=== PATIENT | female | born 1935 | race Caucasian/White ===

== ENCOUNTER → 2017-10-26 | Outpatient (CLI) | payer MEDICARE, OTHER ==
--- NOTE | 2017-10-26 13:06 | RADIOLOGY REPORT (SQ) ---
EXAM DESCRIPTION: CT HEAD WITHOUT COMPLETED DATE/TIME: 10/26/2017 12:55 pm REASON FOR STUDY: NUMBNESS ON RIGHT SIDE (R20.0), STROKE-LIKE SYMPTOMS (R29.90) R20.0 ANESTHESIA OF SKIN R29.90 UNSPECIFIED SYMPTOMS AND SIGNS INVOLVING THE NERVOUS COMPARISON: None. TECHNIQUE: Axial images acquired through the brain without intravenous contrast. Images reviewed wi th bone, brain and subdural windows. Additional sagittal and coronal reconstructions were generated. Images stored on PACS. All CT scanners at this facility use dose modulation, iterative reconstruction, and/or weight based d osing when appropriate to reduce radiation dose to as low as reasonably achievable (ALARA). [facility]: Dose Right [facility]: CareDose [facility]: Dose Right [facility]: Teradose 4D [facility]: [employer] RADIATION DOSE: 48.6 mGy. LIMITATIONS: None. FINDINGS: VENTRICLES: Normal size and contour. CEREBRUM: No masses. No hemorrhage. No midline shift. No evidence for acute infarction. Normal gra y/white matter differentiation. No areas of low density in the white matter. CEREBELLUM: No masses. No hemorrhage. No alteration of density. No evidence for acute infarction. EXTRAAXIAL SPACES: No fluid collections. No masses. ORBITS AND GLOBE: No intra- or extraconal masses. Normal contour of globe without masses. CALVARIUM: No fracture. PARANASAL SINUSES and VISUALIZED SOFT TISSUES: Old right maxillectomy and resection of the hard palat e with facial soft tissue reconstruction prosthesis, and a palate and right maxillary sinus prosthesi s. OTHER: No other significant finding. IMPRESSION: No acute intracranial changes. EVIDENCE OF ACUTE STROKE: No COMMENT: Quality ID # 436: Final reports with documentation of one or more dose reduction techniques (e.g., Automated exposure control, adjustment of the mA and/or kV according to patient size, use of iterative reconstruction technique) TECHNICAL DOCUMENTATION: JOB ID: [id number] [employer]- All Rights Reserved Reading location - IP/workstation name: [email or web address]
== END ==
LOC: RAD 12:31
PROVIDERS: ATTEND Physician Assistant
DX: R20.0 Anesthesia of skin (principal); R29.90 Unspecified symptoms and signs involving the nervous system
CPT/HCPCS: 70450

== ENCOUNTER → 2017-11-01 | Outpatient (CLI) | payer MEDICARE, OTHER ==
--- NOTE | 2017-11-01 14:21 | RADIOLOGY REPORT (SQ) ---
EXAM DESCRIPTION: CAROTID DOPPLER COMPLETED DATE/TIME: 11/01/2017 2:14 pm REASON FOR STUDY: CVA R29.90 UNSPECIFIED SYMPTOMS AND SIGNS INVOLVING THE NERVOUS COMPARISON: None. TECHNIQUE: Grayscale ultrasound, Doppler velocity and spectra, and color Doppler images acquired of the extra-cranial carotid and vertebral arteries. Images stored on PACS. LIMITATIONS: None. FINDINGS: RIGHT CAROTID CCA Velocities: Within normal limits. ICA Velocities Peak systolic 0.64 m/s. End diastolic 0.24 m/s. Proximal ICA/CCA peak systolic ratio 1.3. Spectra normal. No significant plaque. LEFT CAROTID CCA Velocities: Within normal limits. ICA Velocities Peak systolic 0.56 m/s. End diastolic 0.23 m/s. Proximal ICA/CCA peak systolic ratio 1.6. Spectra normal. No significant plaque. VERTEBRAL ARTERIES: Antegrade flow. Normal waveforms. SUBCLAVIAN ARTERIES: No finding. OTHER: No other significant finding. IMPRESSION: NO HEMODYNAMICALLY SIGNIFICANT STENOSIS. COMMENT: Quality ID #195: Velocity criteria are extrapolated from the diameter data as defined by t he Society of Radiologists in Ultrasound Consensus Conference. Radiology 2003: 229; 340-346. TECHNICAL DOCUMENTATION: JOB ID: [id number] [employer]- All Rights Reserved Reading location - IP/workstation name: [email or web address]
== END ==
LOC: SP 13:04
PROVIDERS: ATTEND Physician Assistant
DX: R29.90 Unspecified symptoms and signs involving the nervous system (principal); R20.0 Anesthesia of skin
CPT/HCPCS: 93880

== ENCOUNTER → 2018-07-19 | Outpatient (CLI) | payer MEDICARE, OTHER ==
[2018-07-19 12:33] LABS: ABSOLUTE BASOPHILS # (AUTO) 0.1 10^3/uL (0.0-0.2); ABSOLUTE EOSINOPHILS # (AUTO) 0.1 10^3/uL (0.0-0.6); ABSOLUTE LYMPHOCYTES (AUTO) 0.8 10^3/uL (0.5-4.7); ABSOLUTE MONOCYTES (AUTO) 0.4 10^3/uL (0.1-1.4); ABSOLUTE NEUT (AUTO) 3.2 10^3/uL (1.7-8.2); BASOPHILS % (AUTO) 1.7 % (0-2); EOSINOPHILS % (AUTO) 1.9 % (0-6); HEMOGLOBIN 12.1 g/dL (12.0-15.5); LYMPHOCYTES % (AUTO) 17.1 % (13-45); MEAN CORPUSCULAR HEMOGLOBIN 29.1 pg (27.0-33.4); MEAN CORPUSCULAR HGB CONC 33.5 g/dL (32.0-36.0); MEAN CORPUSCULAR VOLUME 87 fl (80-97); MONOCYTES % (AUTO) 8.3 % (3-13); PLATELET COUNT 329 10^3/uL (150-450); RED BLOOD COUNT 4.15 10^6/uL (3.72-5.28); RED CELL DISTRIBUTION WIDTH 14.1 % (11.5-14.0); TOTAL CELLS COUNTED % (AUTO) 100 %; WHITE BLOOD COUNT 4.5 10^3/uL (4.0-10.5)
[2018-07-19 12:52] LABS: ANION GAP 8 (5-19); BLOOD UREA NITROGEN 16 mg/dL (7-20); CALCIUM 10.5 mg/dL (8.4-10.2); CARBON DIOXIDE 27 mmol/L (22-30); CHLORIDE 108 mmol/L (98-107); GLUCOSE 89 mg/dL (75-110); POTASSIUM 3.7 mmol/L (3.6-5.0); SODIUM 143.1 mmol/L (137-145)
--- NOTE | 2018-07-19 13:00 | RADIOLOGY REPORT (SQ) ---
EXAM DESCRIPTION: CHEST PA/LATERAL COMPLETED DATE/TIME: 07/19/2018 12:06 pm REASON FOR STUDY: PRE-OP COMPARISON: 06/15/2012 EXAM PARAMETERS: NUMBER OF VIEWS: two views TECHNIQUE: Digital Frontal and Lateral radiographic views of the chest acquired. RADIATION DOSE: NA LIMITATIONS: none FINDINGS: LUNGS AND PLEURA: No opacities, masses or pneumothorax. No pleural effusion. MEDIASTINUM AND HILAR STRUCTURES: No masses or contour abnormalities. HEART AND VASCULAR STRUCTURES: Heart normal size. No evidence for failure. BONES: No acute findings. HARDWARE: None in the chest. OTHER: No other significant finding. IMPRESSION: NO SIGNIFICANT RADIOGRAPHIC FINDING IN THE CHEST. TECHNICAL DOCUMENTATION: JOB ID: [id number] [employer]- All Rights Reserved Reading location - IP/workstation name: [email or web address]
[2018-07-19 13:32] LABS: APPEARANCE,URINE SLIGHTLY-CLOUDY; BILIRUBIN,URINE NEGATIVE (NEGATIVE); COLOR,URINE YELLOW; GLUCOSE, URINE NEGATIVE (NEGATIVE); KETONES,URINE NEGATIVE (NEGATIVE); LEUKOCYTE ESTERASE,URINE MODERATE (NEGATIVE); NITRITE,URINE NEGATIVE (NEGATIVE); PROTEIN,URINE NEGATIVE (NEGATIVE); URINE SPECIFIC GRAVITY 1.014; UROBILINOGEN,URINE NEGATIVE mg/dL (<2.0)
--- NOTE | 2018-07-20 15:00 | EKG REPORT ---
SEVERITY:- ABNORMAL ECG - SINUS RHYTHM PROBABLE INFERIOR INFARCT, AGE INDETERMINATE : Confirmed by: George Griggs 20-Jul-2018 14:59:11
== END ==
LOC: OD 11:30
PROVIDERS: ATTEND Orthopaedic Surgery
DX: Z01.818 Encounter for other preprocedural examination (principal)
CPT/HCPCS: 36415; 71046; 80048; 81001; 85025; 93005; 93010

== ENCOUNTER 2019-01-09 14:24 | Emergency (ER) | payer MEDICARE, OTHER ==
[2019-01-09] MEDS ORDERED: ACETAMINOPHEN 325 MG TABLET PO ONE (16:35)
[2019-01-09] MEDS ORDERED: DIPH/PERTUSS(ACELL)/TETANUS VAC/PF 0.5 ML SYR (>=10YO) IM ONE (16:35)
--- NOTE | 2019-01-09 16:36 | ER Document Report ---
ED Medical Screen (RME) - General Chief Complaint: Fall Injury Stated Complaint: FALL/HEAD INJURY Time Seen by Provider: 01/09/19 16:33 Mode of Arrival: Medic Information source: Patient Notes: Patient states that she felt a little dizzy today and [place]. Patient states she fell back hitting her head. Patient denies any loss of consciousness nausea or vomiting. Patient states that she is taking the pain medication and that this may have caused her to become dizzy. Patient with pain to the sacral area from the fall as well as a laceration to the occipital scalp area I have greeted and performed a rapid initial assessment of this patient. A comprehensive ED assessment and evaluation of the patient, analysis of test results and completion of the medical decision making process will be conducted by additional ED providers. TRAVEL OUTSIDE OF THE [place] IN LAST 30 DAYS: No - Related Data Allergies/Adverse Reactions: No Known Allergies Allergy (Verified 01/09/19 14:25) Past Medical History - Social History Frequency of alcohol use: None Drug Abuse: None - Past Medical History Cardiac Medical History: Reports: Hx Heart Attack - pt states very mild attack, Hx Hypercholesterolemia Denies: Hx Atrial Fibrillation, Hx Congestive Heart Failure, Hx Coronary Artery Disease, Hx Hypertension, Hx Peripheral Vascular Disease, Hx Heart Murmur Pulmonary Medical History: Denies: Hx Asthma, Hx Bronchitis, Hx COPD, Hx Sleep Apnea, Hx Tuberculosis Neurological Medical History: Denies: Hx Cerebrovascular Accident, Hx Seizures Endocrine Medical History: Denies: Hx Hyperthyroidism, Hx Hypothyroidism Renal/ Medical History: Denies: Hx Kidney Stones, Hx Ovarian Cysts, Hx Peritoneal Dialysis, Hx Pelvic Inflammatory Disease Malignancy Medical History: Reports: Hx Cervical Cancer, Hx Skin Cancer. Denies: Hx Breast Cancer, Hx Leukemia, Hx Lung Cancer, Hx Ovarian Cancer GI Medical History: Reports: Hx Gastroesophageal Reflux Disease. Denies: Hx Crohn's Disease, Hx Hiatal Hernia, Hx Irritable Bowel, Hx Liver Failure, Hx Pancreatitis, Hx Ulcer Musculoskeltal Medical History: Reports Hx Arthritis - knees, Denies Hx Fibromyalgia, Denies Hx Muscular Dystrophy Psychiatric Medical History: Denies: Hx Bipolar Disorder, Hx Depression, Hx Post Traumatic Stress Disorder Traumatic Medical History: Denies: Hx Fractures Infectious Medical History: Denies: Hx HIV Past Surgical History: Reports: Hx Appendectomy, Hx Bowel Surgery - Apr 2011 Bowel Resection, Hx Cholecystectomy, Hx Hysterectomy. Denies: Hx Section, Hx Colostomy, Hx Coronary Artery Bypass Graft, Hx Gastric Bypass Surgery, Hx Herniorrhaphy, Hx Mastectomy, Hx Pacemaker, Hx Tonsillectomy, Hx Tubal Ligation - Immunizations Hx Diphtheria, Pertussis, Tetanus Vaccination: No History of Influenza Vaccine for 04/2017 - 09/2017 Season: Yes Influenza Administration Date for 04/2017 - 09/2017 Season: 04/23/18 Physical Exam - Vital signs Vitals: Temp Pulse Resp BP Pulse Ox 98.8 F 87 16 142/83 H 97 01/09/19 14:37 01/09/19 14:37 01/09/19 14:37 01/09/19 14:37 01/09/19 14:37 - General General appearance: Appears well, Alert Notes: Laceration to occipital scalp, patient awake alert and oriented Course - Vital Signs Vital signs: Temp Pulse Resp BP Pulse Ox 98.8 F 87 16 142/83 H 97 01/09/19 14:37 01/09/19 14:37 01/09/19 14:37 01/09/19 14:37 01/09/19 14:37
--- NOTE | 2019-01-09 17:07 | RADIOLOGY REPORT (SQ) ---
EXAM DESCRIPTION: CT HEAD WITHOUT COMPLETED DATE/TIME: 01/09/2019 4:50 pm REASON FOR STUDY: fall COMPARISON: 10/26/2017 TECHNIQUE: Axial images acquired through the brain without intravenous contrast. Images reviewed wi th bone, brain and subdural windows. Additional sagittal and coronal reconstructions were generated. Images stored on PACS. All CT scanners at this facility use dose modulation, iterative reconstruction, and/or weight based d osing when appropriate to reduce radiation dose to as low as reasonably achievable (ALARA). [facility]: Dose Right [facility]: CareDose [facility]: Dose Right [facility]: Teradose 4D [facility]: [employer] RADIATION DOSE: CT Rad equipment meets quality standard of care and radiation dose reduction techniq ues were employed. CTDIvol: 53.2 mGy. DLP: 1044 mGy-cm. mGy. LIMITATIONS: None. FINDINGS: VENTRICLES: Normal size and contour. CEREBRUM: No masses. No hemorrhage. No midline shift. No evidence for acute infarction. Normal gra y/white matter differentiation. No areas of low density in the white matter. CEREBELLUM: No masses. No hemorrhage. No alteration of density. No evidence for acute infarction. EXTRAAXIAL SPACES: No fluid collections. No masses. ORBITS AND GLOBE: No intra- or extraconal masses. Normal contour of globe without masses. CALVARIUM: No fracture. PARANASAL SINUSES: Prior surgery right facial bones. SOFT TISSUES: No mass or hematoma. OTHER: No other significant finding. IMPRESSION: No acute intracranial process. EVIDENCE OF ACUTE STROKE: NO. COMMENT: Quality ID # 436: Final reports with documentation of one or more dose reduction techniques (e.g., Automated exposure control, adjustment of the mA and/or kV according to patient size, use of iterative reconstruction technique) TECHNICAL DOCUMENTATION: JOB ID: [id number] [employer]- All Rights Reserved Reading location - IP/workstation name: [email or web address]
--- NOTE | 2019-01-09 17:14 | RADIOLOGY REPORT (SQ) ---
EXAM DESCRIPTION: CT CERVICAL SPINE WITHOUT COMPLETED DATE/TIME: 01/09/2019 4:50 pm REASON FOR STUDY: fall COMPARISON: None. TECHNIQUE: Axial images acquired through the cervical spine without intravenous contrast. Images re viewed with lung, soft tissue and bone windows. Reconstructed coronal and sagittal MPR images review ed. Images stored on PACS. All CT scanners at this facility use dose modulation, iterative reconstruction, and/or weight based d osing when appropriate to reduce radiation dose to as low as reasonably achievable (ALARA). [facility]: Dose Right [facility]: CareDose [facility]: Dose Right [facility]: Teradose 4D [facility]: [employer] RADIATION DOSE: CT Rad equipment meets quality standard of care and radiation dose reduction techniq ues were employed. CTDIvol: 9.2 mGy. DLP: 186 mGy-cm. mGy. LIMITATIONS: None. FINDINGS: ALIGNMENT: Anatomic. MINERALIZATION: Normal. VERTEBRAL BODIES: No fractures or dislocation. DISCS: Multilevel disc space narrowing with osteophytes. FACETS, LATERAL MASSES, POSTERIOR ELEMENTS: Facet arthropathy. No fractures. No dislocation. No ac osage findings. HARDWARE: None in the spine. VISUALIZED RIBS: No fractures. LUNG APICES AND SOFT TISSUES: No significant or acute findings. OTHER: No other significant finding. IMPRESSION: CHRONIC DEGENERATIVE CHANGES. NO ACUTE FINDINGS. TECHNICAL DOCUMENTATION: JOB ID: [id number] Quality ID # 436: Final reports with documentation of one or more dose reduction techniques (e.g., Au tomated exposure control, adjustment of the mA and/or kV according to patient size, use of iterative reconstruction technique) 2010 [employer]- All Rights Reserved Reading location - IP/workstation name: [email or web address]
--- NOTE | 2019-01-09 17:15 | RADIOLOGY REPORT (SQ) ---
EXAM DESCRIPTION: PELVIS AP COMPLETED DATE/TIME: 01/09/2019 4:59 pm REASON FOR STUDY: fall COMPARISON: None. NUMBER OF VIEWS: One view TECHNIQUE: AP Pelvis LIMITATIONS: None. FINDINGS: MINERALIZATION: Osteopenia. HIPS: No acute fracture or dislocation. No worrisome bone lesions. PELVIS AND SACRUM: No acute fracture or dislocation. No worrisome bone lesions. PUBIS AND ISCHIUM: No acute fracture. LOWER LUMBAR SPINE: No significant findings as visualized. SOFT TISSUES: No findings. OTHER: No other significant finding. IMPRESSION: NEGATIVE STUDY OF THE PELVIS. COMMENT: Pelvic fractures are often occult on plain radiographs. If strong clinical suspicion for f racture, recommend CT or MR. TECHNICAL DOCUMENTATION: JOB ID: [id number] [employer]- All Rights Reserved Reading location - IP/workstation name: [email or web address]
--- NOTE | 2019-01-09 17:16 | RADIOLOGY REPORT (SQ) ---
EXAM DESCRIPTION: SACRUM AND COCCYX COMPLETED DATE/TIME: 01/09/2019 4:59 pm REASON FOR STUDY: fall COMPARISON: None. NUMBER OF VIEWS: Three views. TECHNIQUE: AP, lateral, and tilt views of the sacrum and coccyx. LIMITATIONS: None. FINDINGS: MINERALIZATION: Osteopenia. BONES: No acute fracture or dislocation. No worrisome bone lesions. SOFT TISSUES: No soft tissue swelling. No foreign body. OTHER: No other significant finding. IMPRESSION: NEGATIVE STUDY OF THE SACRUM AND COCCYX. TECHNICAL DOCUMENTATION: JOB ID: [id number] [employer]- All Rights Reserved Reading location - IP/workstation name: [email or web address]
[2019-01-09 17:35] LABS: ABSOLUTE LYMPHOCYTES (AUTO) 0.6 10^3/uL (0.5-4.7); BASOPHILS % (AUTO) 0.3 % (0-2); TOTAL CELLS COUNTED % (AUTO) 100 %
[2019-01-09 17:40] LABS: ABSOLUTE MONOCYTES (AUTO) 0.2 10^3/uL (0.1-1.4); ABSOLUTE NEUT (AUTO) 5.6 10^3/uL (1.7-8.2); EOSINOPHILS % (AUTO) 0.2 % (0-6); HEMATOCRIT 34.9 % (36.0-47.0); HEMOGLOBIN 11.9 g/dL (12.0-15.5); LYMPHOCYTES % (AUTO) 8.9 % (13-45); MEAN CORPUSCULAR HEMOGLOBIN 30.6 pg (27.0-33.4); MEAN CORPUSCULAR HGB CONC 34.1 g/dL (32.0-36.0); MEAN CORPUSCULAR VOLUME 90 fl (80-97); MONOCYTES % (AUTO) 3.4 % (3-13); PLATELET COUNT 220 10^3/uL (150-450); RED BLOOD COUNT 3.89 10^6/uL (3.72-5.28); RED CELL DISTRIBUTION WIDTH 16.1 % (11.5-14.0); SEGMENTED NEUTROPHILS % (AUTO) 87.2 % (42-78); WHITE BLOOD COUNT 6.5 10^3/uL (4.0-10.5)
[2019-01-09 17:50] LABS: ALANINE AMINOTRANSFERASE 23 U/L (9-52); ALBUMIN 4.1 g/dL (3.5-5.0); ALKALINE PHOSPHATASE 51 U/L (38-126); ANION GAP 6 (5-19); ASPARTATE AMINO TRANSFERASE 30 U/L (14-36); BILIRUBIN,DIRECT 0.2 mg/dL (0.0-0.4); BILIRUBIN,TOTAL 0.4 mg/dL (0.2-1.3); BLOOD UREA NITROGEN 21 mg/dL (7-20); CALCIUM 10.3 mg/dL (8.4-10.2); CARBON DIOXIDE 29 mmol/L (22-30); CHLORIDE 109 mmol/L (98-107); GLUCOSE 100 mg/dL (75-110); POTASSIUM 4.5 mmol/L (3.6-5.0); SODIUM 143.5 mmol/L (137-145); TOTAL PROTEIN 6.7 g/dL (6.3-8.2)
[2019-01-09 18:00] LABS: APPEARANCE,URINE CLEAR; BILIRUBIN,URINE NEGATIVE (NEGATIVE); COLOR,URINE YELLOW; GLUCOSE, URINE NEGATIVE (NEGATIVE); KETONES,URINE NEGATIVE (NEGATIVE); LEUKOCYTE ESTERASE,URINE TRACE (NEGATIVE); NITRITE,URINE NEGATIVE (NEGATIVE); PROTEIN,URINE NEGATIVE (NEGATIVE); UROBILINOGEN,URINE NEGATIVE mg/dL (<2.0)
--- NOTE | 2019-01-09 20:44 | EKG REPORT ---
SEVERITY:- NORMAL ECG - SINUS RHYTHM : Confirmed by: Mar Pathak MD 09-Jan-2019 20:43:06
[2019-01-09 21:46] VITALS: BP 157/77
--- NOTE | 2019-01-10 06:42 | ER Document Report ---
Entered by SHARON HERR SCRIBE 01/09/19 2228 Acting as scribe for:ADY PAT MD ED Fall - General Chief Complaint: Fall Injury Stated Complaint: FALL/HEAD INJURY Time Seen by Provider: 01/09/19 16:33 Primary Care Provider: ZARA NOBLE MD [Primary Care Provider] - Follow up as needed Mode of Arrival: Medic Information source: Patient Notes: Patient is an 83 year old female with arthritis presents to the emergency department complaining of a head laceration secondary a mechanical trip and fall. Patient states she was walking with a cane outside a post office when she tripped over a parking block. She states she landed on her buttocks then fell backwards and hit her head. She states someone then proceeded to call EMS. She reports she initially had head and buttocks pain but reports these symptoms are now relieved. She denies any nausea, loss of consciousness, neck pain or shoulder pain. Patient does report having arthritic knees and mentions chronic knee pain. TRAVEL OUTSIDE OF THE [place] IN LAST 30 DAYS: No - Related data Allergies/Adverse Reactions: No Known Allergies Allergy (Verified 01/09/19 14:25) Past Medical History - General Information source: Patient - Social History Smoking Status: Former Smoker Cigarette use (# per day): No Chew tobacco use (# tins/day): No Smoking Education Provided: No Frequency of alcohol use: None Drug Abuse: None Family History: Reviewed & Not Pertinent Patient has suicidal ideation: No Patient has homicidal ideation: No - Past Medical History Cardiac Medical History: Reports: Hx Heart Attack - pt states very mild attack, Hx Hypercholesterolemia Malignancy Medical History: Reports: Hx Cervical Cancer, Hx Skin Cancer GI Medical History: Reports: Hx Gastroesophageal Reflux Disease Musculoskeletal Medical History: Reports Hx Arthritis - knees Past Surgical History: Reports: Hx Appendectomy, Hx Bowel Surgery - Apr 2011 Bowel Resection, Hx Cholecystectomy, Hx Hysterectomy - Immunizations Hx Diphtheria, Pertussis, Tetanus Vaccination: No Hx Pneumococcal Vaccination: 04/23/18 Review of Systems - Review of Systems Constitutional: No symptoms reported EENT: No symptoms reported Cardiovascular: No symptoms reported Respiratory: No symptoms reported Gastrointestinal: No symptoms reported Genitourinary: No symptoms reported Female Genitourinary: No symptoms reported Musculoskeletal: See HPI Skin: See HPI Hematologic/Lymphatic: No symptoms reported Neurological/Psychological: No symptoms reported -: Yes All other systems reviewed and negative Physical Exam - Vital signs Vitals: Temp Pulse Resp BP Pulse Ox 98.8 F 87 16 142/83 H 97 01/09/19 14:37 01/09/19 14:37 01/09/19 14:37 01/09/19 14:37 01/09/19 14:37 - Notes Notes: GENERAL: Alert, interacts well. No acute distress. HEAD: Normocephalic. Occipital scalp region contains a crush like wound with surrounding dried blood and matted hair, no sign of significant injury. EYES: Pupils equal, round, and reactive to light. Extraocular movements intact. ENT: Oral mucosa moist, tongue midline. NECK: Full range of motion. Supple. Trachea midline. LUNGS: Clear to auscultation bilaterally, no wheezes, rales, or rhonchi. No respiratory distress. HEART: Regular rate and rhythm. No murmurs, gallops, or rubs. ABDOMEN: Soft, non-tender. Non-distended. Bowel sounds present in all 4 quadrants. No guarding, rigidity, or rebound. EXTREMITIES: Moves all 4 extremities spontaneously. Radial pulses 2/4 bilaterally. NEUROLOGICAL: Alert and oriented x3. Normal speech. PSYCH: Normal affect, normal mood. SKIN: Warm, dry. Course - Re-evaluation Re-evalutation: 01/09/19 22:38 After the occipital scalp region was cleaned of blood and matting in the hair, the wound is found to be a small crush wound that does not go very deep. It does not pull apart unless traction is placed by pulling hair on either side and again it does not extend very deep. I suspect it will do just as well with gauze pad and bag of ice to reduce swelling, rather than putting sutures into th e area. The patient is in agreement with this approach. - Vital Signs Vital signs: Temp Pulse Resp BP Pulse Ox 98.2 F 80 18 157/77 H 100 01/09/19 21:45 01/09/19 21:45 01/09/19 21:45 01/09/19 21:45 01/09/19 21:45 - Laboratory Result Diagrams: 01/09/19 17:10 01/09/19 17:10 Laboratory results interpreted by me: 01/09/19 01/09/19 01/09/19 17:10 17:10 17:10 Hgb 11.9 L Hct 34.9 L RDW 16.1 H Seg Neutrophils % 87.2 H Lymphocytes % 8.9 L Chloride 109 H BUN 21 H Calcium 10.3 H Ur Leukocyte Esterase TRACE H - Diagnostic Test Radiology reviewed: Image reviewed, Reports reviewed - CT scans of the head and cervical spine are unremarkable other than arthritic changes in the cervical spine. X-rays of the pelvis and sacral region do not show fractures. - EKG Interpretation by Me EKG shows normal: Sinus rhythm, [place], Intervals, ST-T Waves. abnormal: QRS Complexes - Old inferior infarct Rate: Normal - 69 Rhythm: NSR When compared to previous EKG there are: No significant change Discharge - Discharge Clinical Impression: Fall Qualifiers: Encounter type: initial encounter Qualified Code(s): W19.XXXA - Unspecified fall, initial encounter Sacral contusion Qualifiers: Encounter type: initial encounter Qualified Code(s): S30.0XXA - Contusion of lower back and pelvis, initial encounter Occipital scalp laceration Qualifiers: Encounter type: initial encounter Qualified Code(s): S01.01XA - Laceration without foreign body of scalp, initial encounter Condition: Stable Disposition: HOME, SELF-CARE Additional Instructions: When you fell you sustained a minor crush injury to the scalp on the back of your head. For tonight, use the 4 x 4 gauze pads and ice packs to help reduce the swelling. The area may use some blood over the next 1 to 2 days, sitting in a recliner with the gauze against the wound and something to apply pressure when you put your head back may help stop any further bleeding. RETURN TO THE EMERGENCY ROOM IF ANY NEW OR WORSENING SYMPTOMS. Referrals: ZARA NOBLE MD [Primary Care Provider] - Follow up as needed Scribe Attestation: 01/09/19 22:28 I personally performed the services described in the documentation, reviewed and edited the documentation which was dictated to the scribe in my presence, and it accurately records my words and actions. I personally performed the services described in the documentation, reviewed and edited the documentation which was dictated to the scribe in my presence, and it accurately records my words and actions.
== END 2019-01-09 23:00 | disposition home or self-care (01) ==
LOC: ER 14:24
DX: S30.0XXA Contusion of lower back and pelvis, initial encounter (principal); S01.01XA Laceration without foreign body of scalp, initial encounter; S09.90XA Unspecified injury of head, initial encounter; S01.91XA Laceration without foreign body of unspecified part of head, initial encounter; W19.XXXA Unspecified fall, initial encounter; Z87.891 Personal history of nicotine dependence
CPT/HCPCS: 93005; 99284; 90471; 36415; 85025; 80053; 81001; 72220; 72170; 70450; 72125; 90715; 93010; A9270

== ENCOUNTER 2019-04-02 20:16 | Emergency (ER) | payer MEDICARE, OTHER ==
[2019-04-02] MEDS ORDERED: NORMAL SALINE 1000 ML 1,000 ML IV ONE (20:35)
--- NOTE | 2019-04-02 20:35 | ER Document Report ---
ED GI/ - General Chief Complaint: Nausea Stated Complaint: NAUSEA/FAILURE TO THRIVE Time Seen by Provider: 04/02/19 20:33 Primary Care Provider: ZARA NOBLE MD [Primary Care Provider] - Follow up as needed Mode of Arrival: Ambulatory Information source: Patient, Relative Notes: HISTORY OF PRESENT ILLNESS: Patient is a 83-year-old female with a past medical history of coronary disease and GERD who presents with 1 week of persistent nausea after starting oral doxycycline for a skin infection. Patient reports that she his "only spit up a few times" but has been unable to keep home meals down other than liquids. She denies chest pain, no shortness of breath, no confusion or weakness. 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 Denies recent illness. EENT: Denies eye, ear, throat, or mouth pain or symptoms. Denies nasal or sinus congestion. CARDIOVASCULAR: Denies chest pain. RESPIRATORY: Denies cough, cold, or chest congestion. Denies shortness of breath, difficulty breathing, or wheezing. GASTROINTESTINAL: Denies abdominal pain. Positive for nausea but no diarrhea. Denies constipation. GENITOURINARY: Denies difficulty urinating, painful urination, burning, frequency, or blood in urine. Denies vaginal bleeding, abnormal or irregular periods. MUSCULOSKELETAL: Denies neck or back pain or joint pain or swelling. SKIN: Denies rash or skin lesions. HEMATOLOGIC : Denies easy bruising or bleeding. LYMPHATIC: Denies swollen, enlarged glands. NEUROLOGICAL: Denies altered mental status or loss of consciousness. Denies headache. Denies weakness or paralysis or loss of use of either side. Denies problems with gait or speech. Denies sensory or motor loss. PSYCHIATRIC: Denies anxiety or stress or depression. All other systems reviewed and negative. PHYSICAL EXAMINATION: GENERAL: Frail-appearing, well-nourished and in no acute distress. HEAD: Atraumatic, normocephalic. No scalp deformity, depression, or crepitance. EYES: Pupils are 3 mm and equal/round/reactive to light, extraocular movements intact, sclera anicteric, conjunctiva are normal. ENT: Nares patent bilaterally, oropharynx clear without exudates or palatal petechia. Moist mucous membranes. No tonsil hypertrophy. NECK: Normal range of motion, supple without lymphadenopathy. LUNGS: Breath sounds present, equal, and clear to auscultation bilaterally. No wheezes, rales, or rhonchi. HEART: Regular rate and rhythm without murmurs, rubs, or gallops. 2+ peripheral pulses. Normal capillary refill. ABDOMEN: Soft, nontender, nondistended. Normoactive bowel sounds. No guarding, no rebound. No masses appreciated. BACK: Normal contour, no midline tenderness. Rectal exam deferred. PELVC: Deferred. EXTREMITIES: Normal range of motion, no pitting or edema. No cyanosis. NEUROLOGICAL: No focal neurological deficits. Moves all extremities spo ntaneously and on command. PSYCH: Normal mood, normal affect. No suicidal thoughts/ideations. No h omicidal thoughts/ideations. No hallucinations. SKIN: Warm, dry, normal turgor, no rashes or lesions noted. ASSESSMENT AND PLAN: This patient is a 83-year-old female who presents with nausea and vomiting for the past week. 1. Will obtain labs, urine, and reassess after IV fluids. 2. Will give IV Reglan for symptomatic control. TRAVEL OUTSIDE OF THE [place] IN LAST 30 DAYS: No - HPI Patient complains to provider of: Other - Nausea and vomiting Onset: Last week Timing/Duration: Gradual Quality of pain: No pain Severity at maximum: Moderate Severity in ED: Mild Pain Level: Denies Context: Other - Just finished doxycycline for a skin infection Location: Epigastric Vaginal bleeding (Compared to normal period): None Menstrual period history: Post-menopausal Sexual history: Inactive Associated symptoms: Nausea, Vomiting Exacerbated by: Denies Relieved by: Denies Similar symptoms previously: No Recently seen / treated by doctor: Yes - Related Data Allergies/Adverse Reactions: No Known Allergies Allergy (Verified 04/02/19 20:25) Past Medical History - General Information source: Patient, Relative - Social History Smoking Status: Former Smoker Chew tobacco use (# tins/day): No Frequency of alcohol use: None Drug Abuse: None Family History: Reviewed & Not Pertinent Patient has suicidal ideation: No Patient has homicidal ideation: No - Past Medical History Cardiac Medical History: Reports: Hx Heart Attack - pt states very mild attack, Hx Hypercholesterolemia Denies: Hx Atrial Fibrillation, Hx Congestive Heart Failure, Hx Coronary Artery Disease, Hx Hypertension, Hx Peripheral Vascular Disease, Hx Heart Murmur Pulmonary Medical History: Reports: None Denies: Hx Asthma, Hx Bronchitis, Hx COPD, Hx Sleep Apnea, Hx Tuberculosis EENT Medical History: Reports: None Neurological Medical History: Reports: None. Denies: Hx Cerebrovascular Accident, Hx Seizures Endocrine Medical History: Reports: None. Denies: Hx Hyperthyroidism, Hx Hypothyroidism Renal/ Medical History: Reports: None. Denies: Hx Kidney Stones, Hx Ovarian Cysts, Hx Peritoneal Dialysis, Hx Pelvic Inflammatory Disease Malignancy Medical History: Reports: Hx Cervical Cancer, Hx Skin Cancer. Denies: Hx Breast Cancer, Hx Leukemia, Hx Lung Cancer, Hx Ovarian Cancer GI Medical History: Reports: Hx Gastroesophageal Reflux Disease. Denies: Hx Crohn's Disease, Hx Hiatal Hernia, Hx Irritable Bowel, Hx Liver Failure, Hx Pancreatitis, Hx Ulcer Musculoskeletal Medical History: Reports Hx Arthritis - knees, Denies Hx Fibromyalgia, Denies Hx Muscular Dystrophy Skin Medical History: Reports None Psychiatric Medical History: Reports: None Denies: Hx Bipolar Disorder, Hx Depression, Hx Post Traumatic Stress Disorder Traumatic Medical History: Reports: None. Denies: Hx Fractures Infectious Medical History: Reports: None. Denies: Hx HIV Past Surgical History: Reports: Hx Appendectomy, Hx Bowel Surgery - Apr 2011 Bowel Resection, Hx Cholecystectomy, Hx Hysterectomy. Denies: Hx Section, Hx Colostomy, Hx Coronary Artery Bypass Graft, Hx Gastric Bypass Surgery, Hx Herniorrhaphy, Hx Mastectomy, Hx Pacemaker, Hx Tonsillectomy, Hx Tubal Ligation - Immunizations Hx Diphtheria, Pertussis, Tetanus Vaccination: No Hx Pneumococcal Vaccination: 04/23/18 Review of Systems - Review of Systems Constitutional: No symptoms reported EENT: No symptoms reported Cardiovascular: No symptoms reported Respiratory: No symptoms reported Gastrointestinal: See HPI, Nausea, Vomiting Genitourinary: No symptoms reported Female Genitourinary: No symptoms reported Musculoskeletal: No symptoms reported Skin: No symptoms reported Hematologic/Lymphatic: No symptoms reported Neurological/Psychological: No symptoms reported -: Yes All other systems reviewed and negative Physical Exam - Vital signs Vitals: Temp Pulse Resp BP Pulse Ox 98.7 F 79 20 133/70 H 99 04/02/19 20:18 04/02/19 20:18 04/02/19 20:18 04/02/19 20:18 04/02/19 20:18 Interpretation: Normal - General General appearance: Appears well, Alert - HEENT Head: Normocephalic, Atraumatic Eyes: Normal Pupils: PERRL - Respiratory Respiratory status: No respiratory distress Chest status: Nontender Breath sounds: Normal Chest palpation: Normal - Cardiovascular Rhythm: Regular Heart sounds: Normal auscultation Murmur: No - Abdominal Inspection: Normal Distension: No distension Bowel sounds: Normal Tenderness: Nontender Organomegaly: No organomegaly - Back Back: Normal, Nontender - Extremities General upper extremity: Normal inspection, Nontender, Normal color, Normal ROM, Normal temperature General lower extremity: Normal inspection, Nontender, Normal color, Normal ROM, Normal temperature, Normal weight bearing. No: Chen's sign - Neurological Neuro grossly intact: Yes Cognition: Normal Orientation: AAOx4 [place] Coma Scale Eye Opening: Spontaneous Roman Coma Scale Verbal: Oriented Roman Coma Scale Motor: Obeys Commands Roman Coma Scale Total: 15 Speech: Normal Motor strength normal: LUE, RUE, LLE, RLE Sensory: Normal - Psychological Associated symptoms: Normal affect, Normal mood - Skin Skin Temperature: Warm Skin Moisture: Dry Skin Color: Normal Course - Re-evaluation Re-evalutation: 04/02/19 23:01 Labs and urine are grossly unremarkable. Patient feels much better after IV fluids and Reglan. Will discharge the patient home with strict return pre cautions and follow-up with primary care. All results were explained to and discussed with the patient, and all questions addressed and answered for the patient. The patient and her daughter voice both understanding and agreeing with the plan. - Vital Signs Vital signs: Temp Pulse Resp BP Pulse Ox 98.7 F 79 20 133/70 H 99 04/02/19 20:18 04/02/19 20:18 04/02/19 20:18 04/02/19 20:18 04/02/19 20:18 - Laboratory Result Diagrams: 04/02/19 20:52 04/02/19 20:52 Laboratory results interpreted by me: 04/02/19 04/02/19 20:52 20:52 RBC 3.51 L Hgb 10.5 L Hct 30.7 L RDW 14.9 H Band Neutrophils % 2 L Metamyelocytes % 1 H Sodium 134.3 L BUN 24 H Est GFR ( Amer) 58 L Est GFR (MDRD) Non-Af 48 L Creatine Kinase < 20 L Total Protein 5.6 L Albumin 2.9 L - EKG Interpretation by Me EKG shows normal: Sinus rhythm Rate: Normal Rhythm: NSR [place]/QRS: No: Right axis deviation, Left axis deviation, RBBB, LBBB, IVCD, LAHB/LAFB, LPHB/LPFB, Bifasicular block Voltage: No: Increased voltage, Consistant with LVH, Decreased voltage, Throughout, Limb leads P Waves: No: NEDRA, LAE, Absent, AV Dissociation, Other Heart block present: No: 1st Degree, Mobitz 1, Mobitz 2, CHB (3rd degree block) When compared to previous EKG there are: No significant change Discharge - Discharge Clinical Impression: Gastritis Qualifiers: Gastritis type: unspecified gastritis Chronicity: acute Gastritis bleeding: without bleeding Qualified Code(s): K29.00 - Acute gastritis without bleeding Condition: Good Disposition: HOME, SELF-CARE Instructions: Gastritis ([facility]) Additional Instructions: You have been evaluated in the Emergency Department for vomiting and nausea related to inflammation of your stomach, called gastritis. While here, you had blood work that was normal and have improved after IV fluids and it is now safe to be discharged home. Please follow-up with your primary physician as instructed in 1 week to be rechecked. Return to the Emergency Department if you experience worsening nausea, chest pain, bloody stools, bloody vomit, or any other concerning symptoms. Prescriptions: Ondansetron [Zofran Odt 4 mg Tablet] 1 tab PO Q8HP PRN #30 tab.rapdis PRN Reason: For Nausea/Vomiting Metoclopramide HCl [Reglan 10 mg Tablet] 10 mg PO ASDIR PRN #30 tablet PRN Reason: For Nausea/Vomiting Referrals: ZARA NOBLE MD [Primary Care Provider] - Follow up as needed Print Language: Yoruba
[2019-04-02 21:06] LABS: HEMATOCRIT 30.7 % (36.0-47.0); HEMOGLOBIN 10.5 g/dL (12.0-15.5); MEAN CORPUSCULAR HEMOGLOBIN 30.1 pg (27.0-33.4); MEAN CORPUSCULAR HGB CONC 34.4 g/dL (32.0-36.0); MEAN CORPUSCULAR VOLUME 87 fl (80-97); PLATELET COUNT 397 10^3/uL (150-450); RED BLOOD COUNT 3.51 10^6/uL (3.72-5.28); RED CELL DISTRIBUTION WIDTH 14.9 % (11.5-14.0); WHITE BLOOD COUNT 5.7 10^3/uL (4.0-10.5)
[2019-04-02] MEDS ORDERED: METOCLOPRAMIDE HCL INJ/PF 10 MG/2 ML SDV IV ONE (21:08)
[2019-04-02 21:19] LABS: ALBUMIN 2.9 g/dL (3.5-5.0); ALKALINE PHOSPHATASE 68 U/L (38-126); ANION GAP 9 (5-19); ASPARTATE AMINO TRANSFERASE 25 U/L (14-36); BILIRUBIN,DIRECT 0.4 mg/dL (0.0-0.4); BILIRUBIN,TOTAL 0.5 mg/dL (0.2-1.3); BLOOD UREA NITROGEN 24 mg/dL (7-20); CALCIUM 9.8 mg/dL (8.4-10.2); CARBON DIOXIDE 25 mmol/L (22-30); CHLORIDE 100 mmol/L (98-107); GLUCOSE 82 mg/dL (75-110); POTASSIUM 4.1 mmol/L (3.6-5.0); TOTAL PROTEIN 5.6 g/dL (6.3-8.2)
[2019-04-02 21:21] LABS: ALCOHOL < 10 mg/dL (NONE DETECTED); CREATINE KINASE < 20 U/L (30-135)
[2019-04-02 21:29] LABS: ABSOLUTE LYMPHOCYTES# (MANUAL) 0.8 10^3/uL (0.5-4.7); ABSOLUTE MONOCYTES # (MANUAL) 0.3 10^3/uL (0.1-1.4); BAND NEUTROPHILS % (MANUAL) 2 % (3-5); BASOPHILS % (MANUAL) 0 % (0-2); EOSINOPHILS % (MANUAL) 0 % (0-6); LYMPHOCYTES % (MANUAL) 14 % (13-45); METAMYELOCYTES % (MANUAL) 1 % (0); MONOCYTES % (MANUAL) 5 % (3-13); SEGMENTED NEUTROPHILS % (MAN) 78 % (42-78); TOTAL CELLS COUNTED 100
[2019-04-02 21:32] LABS: ANISOCYTOSIS SLIGHT; OVALOCYTES SLIGHT; PLATELET COMMENT ADEQUATE; POIKILOCYTOSIS SLIGHT
[2019-04-02 23:12] LABS: AMORPHOUS SEDIMENT,URINE TRACE /HPF; APPEARANCE,URINE CLOUDY; BILIRUBIN,URINE NEGATIVE (NEGATIVE); COLOR,URINE YELLOW; GLUCOSE, URINE NEGATIVE (NEGATIVE); KETONES,URINE NEGATIVE (NEGATIVE); LEUKOCYTE ESTERASE,URINE LARGE (NEGATIVE); NITRITE,URINE NEGATIVE (NEGATIVE); PROTEIN,URINE NEGATIVE (NEGATIVE); URINE SPECIFIC GRAVITY 1.008; UROBILINOGEN,URINE NEGATIVE mg/dL (<2.0)
[2019-04-02 23:32] VITALS: BP 133/69
--- NOTE | 2019-04-03 09:26 | EKG REPORT ---
SEVERITY:- NORMAL ECG - SINUS RHYTHM : Confirmed by: Mar Pathak MD 03-Apr-2019 09:25:06
== END 2019-04-02 23:29 | disposition home or self-care (01) ==
LOC: ER 20:16
DX: K29.00 Acute gastritis without bleeding (principal); R11.2 Nausea with vomiting, unspecified; Z87.891 Personal history of nicotine dependence
CPT/HCPCS: 93005; 36415; 80307; 82550; 83690; 85025; 80053; 81001; 84484; 93010; J2765; J7030; 96361; 96374; 99284

== ENCOUNTER 2019-04-06 14:07 | Emergency (ER) | payer MEDICARE, OTHER ==
[2019-04-06] MEDS ORDERED: RINGERS SOLUTION,LACTATED 1,000 ML IV ONE (14:59)
--- NOTE | 2019-04-06 15:02 | ER Document Report ---
ED Dizziness/Weakness - General Chief Complaint: General Weakness Stated Complaint: FAILURE TO THRIVE Time Seen by Provider: 04/06/19 14:30 Primary Care Provider: ZARA NOBLE MD [Primary Care Provider] - 04/08/19 Mode of Arrival: Wheelchair Information source: Patient, Relative Notes: Patient presents with 11-day history of nausea decreased oral intake. The patient was seen here for this problem 4 days ago and family is concerned that she has not had any improvement. Patient reports mild cough. Patient denies any pain symptoms, no chest pain no shortness of breath no abdominal pain, no vomiting. TRAVEL OUTSIDE OF THE [place] IN LAST 30 DAYS: No - HPI Patient complains to provider of: Other - nausea, decreased appetite Onset: Other - 11 days Onset/Duration: Persistent Quality of pain: No pain Pain Level: Denies Associated symptoms: Nausea. denies: Chest pain, Diarrhea, Dizzy, Headache, Lightheaded, Recent fall, Vomiting Baseline gait: Walks w/o assistance - Related Data Allergies/Adverse Reactions: No Known Allergies Allergy (Verified 04/02/19 20:25) Past Medical History - General Information source: Patient, Relative - Social History Smoking Status: Former Smoker Frequency of alcohol use: None Drug Abuse: None Lives with: Spouse/Significant other Family History: Reviewed & Not Pertinent - Past Medical History Cardiac Medical History: Reports: Hx Heart Attack - pt states very mild attack, Hx Hypercholesterolemia Neurological Medical History: Denies: Hx Cerebrovascular Accident, Hx Seizures Endocrine Medical History: Denies: Hx Hyperthyroidism, Hx Hypothyroidism Malignancy Medical History: Reports: Hx Cervical Cancer, Hx Skin Cancer GI Medical History: Reports: Hx Gastroesophageal Reflux Disease Musculoskeletal Medical History: Reports Hx Arthritis - knees Traumatic Medical History: Denies: Hx Fractures Past Surgical History: Reports: Hx Appendectomy, Hx Bowel Surgery - Apr 2011 Bowel Resection, Hx Cholecystectomy, Hx Hysterectomy - Immunizations Hx Diphtheria, Pertussis, Tetanus Vaccination: No Hx Pneumococcal Vaccination: 04/23/18 Review of Systems - Review of Systems Constitutional: Weight loss. denies: Fever, Recent illness EENT: No symptoms reported Cardiovascular: No symptoms reported. denies: Chest pain Respiratory: Cough. denies: Short of breath Gastrointestinal: Nausea, Poor appetite, Poor fluid intake. denies: Abdominal pain, Diarrhea, Vomiting Genitourinary: No symptoms reported. denies: Dysuria, Flank pain Female Genitourinary: No symptoms reported Musculoskeletal: No symptoms reported. denies: Back pain Skin: No symptoms reported Hematologic/Lymphatic: No symptoms reported Neurological/Psychological: No symptoms reported. denies: Headaches Physical Exam - Vital signs Vitals: Resp BP Pulse Ox 17 128/84 H 96 04/06/19 14:20 04/06/19 14:20 04/06/19 14:20 - General General appearance: Alert Notes: Cachectic - HEENT Head: Atraumatic Eyes: Normal External canal: Cerumen impaction - cleared with currette Nasal: Normal Mouth/Lips: Lesions - Crusted skin lesion to inside right right upper oral cavity, no surrounding erythema or swelling Neck: Normal, Supple. No: Lymphadenopathy - Respiratory Respiratory status: No respiratory distress Chest status: Nontender Breath sounds: Normal. No: Rales, Rhonchi, Stridor, Wheezing Chest palpation: Normal - Cardiovascular Rhythm: Regular Heart sounds: S1 appreciated, S2 appreciated Murmur: No - Abdominal Inspection: Normal Distension: No distension Bowel sounds: Normal Tenderness: Nontender Organomegaly: No organomegaly - Back Back: Normal, Nontender. No: CVA tenderness - Extremities General upper extremity: Normal inspection, Normal ROM General lower extremity: Normal inspection, Normal ROM. No: Edema - Neurological Neuro grossly intact: Yes Cognition: Normal [place] Coma Scale Eye Opening: Spontaneous Roman Coma Scale Verbal: Oriented [place] Coma Scale Motor: Obeys Commands [place] Coma Scale Total: 15 - Skin Skin Temperature: Warm Skin Moisture: Dry Skin Color: Normal Course - Re-evaluation Re-evalutation: 04/06/19 16:30 Patient did drink a cup of orange juice, after being told that her blood sugar was low. Pt tolerated without any emesis. 04/06/19 16:58 Family is concerned that patient has had significant weight loss as she will not take much to eat or drink. Review of patient's weights over her previous ER visits demonstrates that she is actually in fact heavier today than she was in July of this year. Patient without any acute weight loss at this time. 04/06/19 18:34 Discussed with patient and family that patient has not had any significant weight loss over this year. Patient does have a UTI and the urine will be cultured. Discussed with patient and family worsening symptoms that she should return immediately for. Patient has tolerated oral fluids without emesis although has not drank a significant volume. Patient encouraged to drink diet supplements such as Ensure or [place]. Discussed with patient and family the need for close follow-up with the primary doctor who can discuss with them possible options such as G-tube placement - Vital Signs Vital signs: Temp Pulse Resp BP Pulse Ox 98.7 F 20 121/70 97 04/06/19 14:21 04/06/19 19:01 04/06/19 19:01 04/06/19 19:01 - Laboratory Result Diagrams: 04/06/19 14:45 04/06/19 14:45 Laboratory results interpreted by me: 04/06/19 04/06/19 04/06/19 14:45 14:45 14:45 RBC 3.04 L Hgb 9.2 L Hct 26.2 L RDW 14.2 H Lymph % (Auto) 10.1 L Seg Neutrophils % 83.4 H Sodium 136.4 L Est GFR (MDRD) Non-Af 58 L Glucose 69 L Direct Bilirubin 0.5 H Total Protein 5.2 L Albumin 2.7 L Free T3 pg/mL 1.71 L Urine Ketones Urine Blood Urine Urobilinogen Ur Leukocyte Esterase 04/06/19 17:15 RBC Hgb Hct RDW Lymph % (Auto) Seg Neutrophils % Sodium Est GFR (MDRD) Non-Af Glucose Direct Bilirubin Total Protein Albumin Free T3 pg/mL Urine Ketones TRACE H Urine Blood LARGE H Urine Urobilinogen 2.0 H Ur Leukocyte Esterase LARGE H - Diagnostic Test Radiology reviewed: Reports reviewed - EKG Interpretation by In EKG shows normal: Sinus rhythm When compared to previous EKG there are: No significant change Additional EKG results interpreted by me: 04/06/19 18:[address] elevation, no T wave inversion, QTC 471 Discharge - Discharge Clinical Impression: Poor appetite UTI (urinary tract infection) Qualifiers: Urinary tract infection type: site unspecified Hematuria presence: with hematuria Qualified Code(s): N39.0 - Urinary tract infection, site not specified Condition: Stable Disposition: HOME, SELF-CARE Instructions: Cephalexin ([facility]), Urinary Tract Infection ([facility]) Additional Instructions: Return immediately for any new or worsening symptoms Followup with your primary care provider, call tomorrow to make a followup appointment Follow-up with your primary doctor, you can discuss other options to help supplement oral intake such as G-tube placement. Increase oral fluids such as ensure shakes to help with nutrition Prescriptions: Cephalexin Monohydrate [Keflex 500 mg Capsule] 500 mg PO BID 7 Days capsule Referrals: ZARA NOBLE MD [Primary Care Provider] - 04/08/19
[2019-04-06 15:07] LABS: ABSOLUTE LYMPHOCYTES (AUTO) 0.7 10^3/uL (0.5-4.7); ABSOLUTE MONOCYTES (AUTO) 0.4 10^3/uL (0.1-1.4); ABSOLUTE NEUT (AUTO) 6.1 10^3/uL (1.7-8.2); BASOPHILS % (AUTO) 0.6 % (0-2); EOSINOPHILS % (AUTO) 0.5 % (0-6); HEMATOCRIT 26.2 % (36.0-47.0); HEMOGLOBIN 9.2 g/dL (12.0-15.5); LYMPHOCYTES % (AUTO) 10.1 % (13-45); MEAN CORPUSCULAR HEMOGLOBIN 30.3 pg (27.0-33.4); MEAN CORPUSCULAR HGB CONC 35.2 g/dL (32.0-36.0); MEAN CORPUSCULAR VOLUME 86 fl (80-97); MONOCYTES % (AUTO) 5.4 % (3-13); PLATELET COUNT 401 10^3/uL (150-450); RED BLOOD COUNT 3.04 10^6/uL (3.72-5.28); RED CELL DISTRIBUTION WIDTH 14.2 % (11.5-14.0); SEGMENTED NEUTROPHILS % (AUTO) 83.4 % (42-78); TOTAL CELLS COUNTED % (AUTO) 100 %; WHITE BLOOD COUNT 7.3 10^3/uL (4.0-10.5)
[2019-04-06 15:14] LABS: ALBUMIN 2.7 g/dL (3.5-5.0); ALKALINE PHOSPHATASE 56 U/L (38-126); ANION GAP 10 (5-19); ASPARTATE AMINO TRANSFERASE 22 U/L (14-36); BILIRUBIN,DIRECT 0.5 mg/dL (0.0-0.4); BILIRUBIN,TOTAL 0.6 mg/dL (0.2-1.3); BLOOD UREA NITROGEN 15 mg/dL (7-20); CALCIUM 9.7 mg/dL (8.4-10.2); CARBON DIOXIDE 25 mmol/L (22-30); CHLORIDE 101 mmol/L (98-107); TOTAL PROTEIN 5.2 g/dL (6.3-8.2)
[2019-04-06 15:22] LABS: GLUCOSE 69 mg/dL (75-110)
--- NOTE | 2019-04-06 15:27 | RADIOLOGY REPORT (SQ) ---
EXAM DESCRIPTION: CHEST 2 VIEWS COMPLETED DATE/TIME: 04/06/2019 3:17 pm REASON FOR STUDY: weakness, cough COMPARISON: 07/19/2018 TECHNIQUE: Frontal and lateral radiographic views of the chest acquired. NUMBER OF VIEWS: Two view. LIMITATIONS: None. FINDINGS: LUNGS AND PLEURA: No pneumothorax. No consolidation or pleural effusion. MEDIASTINUM AND HILAR STRUCTURES: Stable. HEART AND VASCULAR STRUCTURES: Stable. BONES: No acute findings. HARDWARE: None in the chest. OTHER: No other significant finding. IMPRESSION: NO ACUTE FINDINGS. TECHNICAL DOCUMENTATION: JOB ID: [id number] [place]-72 2010 [employer]- All Rights Reserved Reading location - IP/workstation name: [email or web address]
[2019-04-06 15:31] LABS: FREE T3 1.71 pg/mL (2.77-5.27); FREE T4 (FREE THYROXINE) 1.34 ng/dL (0.78-2.19)
[2019-04-06] MEDS: RINGERS SOLUTION,LACTATED 500 ML IV ONE ×2 (15:40→16:01)
[2019-04-06 15:45] LABS: THYROID STIMULATING HORMONE 0.51 uIU/mL (0.47-4.68)
[2019-04-06] MEDS ORDERED: DEXTROSE 5%-NORMAL SALINE 1,000 ML IV ONE (15:50)
[2019-04-06 17:56] LABS: AMORPHOUS SEDIMENT,URINE TRACE /HPF; APPEARANCE,URINE CLOUDY; BILIRUBIN,URINE NEGATIVE (NEGATIVE); COLOR,URINE YELLOW; GLUCOSE, URINE NEGATIVE (NEGATIVE); KETONES,URINE TRACE mg/dL (NEGATIVE); LEUKOCYTE ESTERASE,URINE LARGE (NEGATIVE); NITRITE,URINE NEGATIVE (NEGATIVE); PROTEIN,URINE NEGATIVE (NEGATIVE); URINE SPECIFIC GRAVITY 1.009
[2019-04-06] MEDS ORDERED: CEFTRIAXONE 1 GM/D5W RTU 1 GM/50 ML RTUPB IV ONE (18:15)
[2019-04-06 19:44] VITALS: BP 121/70
--- NOTE | 2019-04-06 19:44 | EKG REPORT ---
SEVERITY:- NORMAL ECG - SINUS RHYTHM : Confirmed by: Mar Pathak MD 06-Apr-2019 19:43:33
== END 2019-04-06 19:45 | disposition home or self-care (01) ==
LOC: ER 14:07
DX: N39.0 Urinary tract infection, site not specified (principal); R31.9 Hematuria, unspecified; R63.0 Anorexia; R11.0 Nausea; R05 Cough; H61.20 Impacted cerumen, unspecified ear; L98.9 Disorder of the skin and subcutaneous tissue, unspecified; Z87.891 Personal history of nicotine dependence
CPT/HCPCS: 93005; 99284; 96361; 96365; 36415; 87086; 84439; 83690; 83735; 84443; 85025; 87088; 80053; 81001; 84484; 87186; 84481; 71046; 93010; J7042; J7120; J0696

== ENCOUNTER 2019-04-08 11:42 | Inpatient (IN) | payer MEDICARE, OTHER ==
[2019-04-08 12:51] LABS: ABSOLUTE BASOPHILS # (AUTO) 0.1 10^3/uL (0.0-0.2); ABSOLUTE LYMPHOCYTES (AUTO) 0.9 10^3/uL (0.5-4.7); ABSOLUTE MONOCYTES (AUTO) 0.9 10^3/uL (0.1-1.4); ABSOLUTE NEUT (AUTO) 11.8 10^3/uL (1.7-8.2); BASOPHILS % (AUTO) 0.6 % (0-2); EOSINOPHILS % (AUTO) 0.1 % (0-6); HEMATOCRIT 29.2 % (36.0-47.0); LYMPHOCYTES % (AUTO) 6.8 % (13-45); MEAN CORPUSCULAR HEMOGLOBIN 29.4 pg (27.0-33.4); MEAN CORPUSCULAR HGB CONC 34.1 g/dL (32.0-36.0); MEAN CORPUSCULAR VOLUME 86 fl (80-97); MONOCYTES % (AUTO) 6.8 % (3-13); PLATELET COUNT 475 10^3/uL (150-450); RED BLOOD COUNT 3.39 10^6/uL (3.72-5.28); RED CELL DISTRIBUTION WIDTH 14.4 % (11.5-14.0); SEGMENTED NEUTROPHILS % (AUTO) 85.7 % (42-78); TOTAL CELLS COUNTED % (AUTO) 100 %; WHITE BLOOD COUNT 13.7 10^3/uL (4.0-10.5)
[2019-04-08 13:17] LABS: ALKALINE PHOSPHATASE 65 U/L (38-126); ANION GAP 7 (5-19); ASPARTATE AMINO TRANSFERASE 26 U/L (14-36); BILIRUBIN,DIRECT 0.4 mg/dL (0.0-0.4); BILIRUBIN,TOTAL 0.5 mg/dL (0.2-1.3); BLOOD UREA NITROGEN 14 mg/dL (7-20); CALCIUM 9.9 mg/dL (8.4-10.2); CARBON DIOXIDE 30 mmol/L (22-30); CHLORIDE 99 mmol/L (98-107); CREATINE KINASE 20 U/L (30-135); GLUCOSE 120 mg/dL (75-110); POTASSIUM 3.3 mmol/L (3.6-5.0); TOTAL PROTEIN 5.7 g/dL (6.3-8.2)
[2019-04-08 13:21] LABS: CREATINE KINASE MB 0.37 ng/mL (<4.55); TROPONIN I 0.02 ng/mL
--- NOTE | 2019-04-08 13:32 | EKG REPORT ---
SEVERITY:- ABNORMAL ECG - SINUS TACHYCARDIA ATRIAL PREMATURE COMPLEX INFERIOR INFARCT, AGE INDETERMINATE : Confirmed by: Porfirio Nation MD 08-Apr-2019 13:31:42
[2019-04-08 13:59] LABS: APPEARANCE,URINE CLOUDY; BILIRUBIN,URINE MODERATE (NEGATIVE); COLOR,URINE YELLOW; GLUCOSE, URINE NEGATIVE (NEGATIVE); KETONES,URINE 25 mg/dL (NEGATIVE); LEUKOCYTE ESTERASE,URINE LARGE (NEGATIVE); NITRITE,URINE NEGATIVE (NEGATIVE); PROTEIN,URINE 100 mg/dL (NEGATIVE)
--- NOTE | 2019-04-08 13:59 | ER Document Report ---
ED Dizziness/Weakness - General Chief Complaint: General Weakness Stated Complaint: WEAKNESS, URINARY ISSUES Time Seen by Provider: 04/08/19 13:29 Primary Care Provider: ZARA NOBLE MD [Primary Care Provider] - Follow up as needed Notes: Patient is here due to "failure to thrive", according to her daughter. Patient has progressive weakness and anorexia. This is this patient's third visit to this emergency department in the past 6 days. When she was seen 6 days ago, she apparently had a positive looking urine for infection, but was not treated. On her return visit Monday, she was put on antibiotic. Daughter says that she is become extremely weak and has difficulty walking now. She has had very poor appetite, eating very little solid food and drinking only minimal amounts of liquids. Daughter says she has had a low-grade fever of 99.8, but may have been higher earlier in the week. Has not had significant cough or cold or chest congestion although she does have stopped up nose. Denies any nausea or vomiting. Patient also fell last night hitting her left ribs. 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 She wears an obturator device. TRAVEL OUTSIDE OF THE [place] 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 Denies: Hx Crohn's Disease, Hx Hiatal Hernia, Hx Irritable Bowel, Hx Liver Failure, Hx Pancreatitis, Hx Ulcer Musculoskeletal Medical History: Reports Hx Arthritis - knees, Denies Hx Fib romyalgia, Denies Hx Muscular Dystrophy Psychiatric Medical History: Denies: Hx Bipolar Disorder, Hx Depression, Hx Post Traumatic Stress Disorder Traumatic Medical History: Denies: Hx Fractures Infectious Medical History: Denies: Hx HIV Past Surgical History: Reports: Hx Appendectomy, Hx Bowel Surgery - Apr 2011 Bowel Resection, Hx Cholecystectomy, Hx Hysterectomy. Denies: Hx Section, Hx Colostomy, Hx Coronary Artery Bypass Graft, Hx Gastric Bypass Surgery, Hx Herniorrhaphy, Hx Mastectomy, Hx Pacemaker, Hx Tonsillectomy, Hx Tubal Ligation - Immunizations Hx Diphtheria, Pertussis, Tetanus Vaccination: No Hx Pneumococcal Vaccination: 04/23/18 Review of Systems - Review of Systems Notes: REVIEW OF SYSTEMS: CONSTITUTIONAL : Denies fever. Temp of 99.8 last night. Complains of generalized weakness. No appetite and not drinking fluids. EENT: Denies eye, ear, nose or mouth or throat pain or other symptoms. Head and sinuses feel stopped up. CARDIOVASCULAR: Denies chest pain. RESPIRATORY: Denies cough, chest congestion, or shortness of breath. GASTROINTESTINAL: Denies abdominal pain or nausea, vomiting, or diarrhea. GENITOURINARY: Denies difficulty or painful urinating, urinary frequency, blood in urine. MUSCULOSKELETAL: Denies back or neck pain. Denies joint pain or swelling. SKIN: Denies rash or skin lesions. NEUROLOGICAL: Denies LOC or altered mental status. Denies headache. Denies sensory loss or motor deficits. ALL OTHER SYSTEMS REVIEWED AND NEGATIVE. Physical Exam - Vital signs Vitals: Temp Pulse Resp BP Pulse Ox 99.2 F 102 H 16 125/80 95 04/08/19 11:51 04/08/19 11:51 04/08/19 11:51 04/08/19 11:51 04/08/19 11:51 Interpretation: Tachycardic - Minor Notes: PHYSICAL EXAMINATION: GENERAL: Well-appearing, in no acute distress. HEAD: Atraumatic, normocephalic. EYES: Pupils equal round and reactive to light, extraocular movements intact. ENT: oropharynx clear without exudates. Moist mucous membranes. Patient has an obturator insertion in the right hard palate and maxillary region from where she had successful cancer surgery 20 years ago. NECK: Normal range of motion, supple. LUNGS: Breath sounds clear and equal bilaterally. No visible bruising. Tender in the left lower lateral rib region. No subcutaneous air felt. HEART: Regular rate and rhythm without murmurs. Heart rate 108 by me at bedside. ABDOMEN: Soft, nontender. No guarding or rebound. No masses. BACK: No tenderness throughout entire back. EXTREMITIES: Normal range of motion without pain. NEUROLOGICAL: Normal speech. Normal sensory, motor, and reflex exams. Awake, alert, and oriented x3. PSYCH: Normal mood, normal affect. SKIN: Warm, dry, no rashes. Course - Re-evaluation Re-evalutation: 04/08/19 14:51 Patient had IV fluids started. Rocephin was given 1 g IV. Spoke with hospitalist who will admit the patient for fluids and antibiotic therapy. - Vital Signs Vital signs: Temp Pulse Resp BP Pulse Ox 99.2 F 102 H 20 146/85 H 100 04/08/19 11:51 04/08/19 11:51 04/08/19 14:13 04/08/19 14:13 04/08/19 14:13 - Laboratory Result Diagrams: 04/08/19 12:40 04/08/19 12:40 Laboratory results interpreted by me: 04/08/19 04/08/19 04/08/19 12:40 12:40 13:23 WBC 13.7 H RBC 3.39 L Hgb 10.0 L Hct 29.2 L RDW 14.4 H Plt Count 475 H Lymph % (Auto) 6.8 L Absolute Neuts (auto) 11.8 H Seg Neutrophils % 85.7 H Sodium 136.0 L Potassium 3.3 L Est GFR (MDRD) Non-Af 59 L Glucose 120 H Creatine Kinase 20 L Total Protein 5.7 L Albumin 3.0 L Urine Protein 100 H Urine Ketones 25 H Urine Blood MODERATE H Urine Bilirubin MODERATE H Urine Urobilinogen 8.0 H Ur Leukocyte Esterase LARGE H Urine Ascorbic Acid 40 H Discharge - Discharge Clinical Impression: UTI (urinary tract infection), Dehydration, Hypokalemia, Hyponatremia Condition: Stable Disposition: ADMITTED INPATIENT Admitting Provider: Radha (Hospitalist) Unit Admitted: Medical Floor Referrals: ZARA NOBLE MD [Primary Care Provider] - Follow up as needed
[2019-04-08] MEDS ORDERED: CEFTRIAXONE 1 GM/D5W RTU 1 GM/50 ML RTUPB IV ONE (14:03)
--- NOTE | 2019-04-08 14:26 | RADIOLOGY REPORT (SQ) ---
EXAM DESCRIPTION: RIBS LEFT W/PA CHEST COMPLETED DATE/TIME: 04/08/2019 2:11 pm REASON FOR STUDY: Fell and hit left lower lateral ribs COMPARISON: None. TECHNIQUE: Frontal view of the chest and additional views of the left ribs acquired. NUMBER OF VIEWS: Five views LIMITATIONS: None. FINDINGS: FRONTAL CXR: No pneumothorax. No pleural effusion. No atelectasis or infiltrates. RIBS: No displaced rib fractures. No lytic or blastic bony lesions. OTHER: No other significant finding. IMPRESSION: NO PNEUMOTHORAX. NO DISPLACED RIB FRACTURES. COMMENT: SITE OF TRAUMA/COMPLAINT MARKED/STAMP COMPLETED: No TECHNICAL DOCUMENTATION: JOB ID: [id number] [employer]- All Rights Reserved Reading location - IP/workstation name: [email or web address]
[2019-04-08] MEDS ORDERED: POTASSIUM CHLORIDE 10 MEQ CAPSULE.ER PO ONE (14:32)
[2019-04-08] MEDS ORDERED: NORMAL SALINE 1000 ML 1,000 ML IV ONE (14:32)
[2019-04-08] MEDS ORDERED: ACETAMINOPHEN 325 MG TABLET PO PRN (15:35)
[2019-04-08] MEDS ORDERED: PANTOPRAZOLE SODIUM 40 MG TABLET.DR PO SCH (16:00)
--- NOTE | 2019-04-08 16:04 | PDOC H&P ---
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 She has been having weakness and poor appetite in the past 2 weeks. She did complain of associated epigastric and hypogastric cramps. 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 She had 3 ER visits in the past 7 days for her weakness and poor appetite. Her recent urinalysis did show UTI but she was just started on treatment on her ER visit last Monday. She was started on Keflex then but continued to have poor appetite and weakness at home hence family brought her back to the ER today. Family did report she had some subjective fever at home. 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, surgery 1999 Denies: Breast Cancer, Leukemia, Lung Cancer, Ovarian Cancer GI Medical History: Reports: Gastroesophageal Reflux Disease Denies: Crohn's Disease, Hiatal Hernia Musculoskeltal Medical History: Reports: Arthritis - knees Denies: Fibromyalgia Psychiatric Medical History: Denies: Bipolar Disorder, Depression, Post Traumatic Stress Disorder Hematology: Reports: Anemia - takes iron Denies: Hemophilia, Sickle Cell Disease Infectious Medical History: Denies: HIV Past Surgical History Past Surgical History: Reports: Appendectomy, Cholecystectomy, Hysterectomy Denies: Amputation, Section, Colostomy, Coronary Artery Bypass Graft, Gastric Bypass Surgery, Herniorrhaphy, Mastectomy, Pacemaker, Tonsillectomy, Tubal Ligation Social History Smoking Status: Unknown if Ever Smoked Hx Recreational Drug Use: No Hx Prescription Drug Abuse: No Family History Family History: Reviewed & Not Pertinent Parental Family History Reviewed: Yes - No premature CAD Children Family History Reviewed: No Sibling(s) Family History Reviewed.: No Medication/Allergy Home Medications: Fenofibrate [Lofibra] 160 mg PO QHS 06/15/12 Nebivolol HCl [Bystolic] 5 mg PO DAILY 06/15/12 Metoclopramide HCl [Reglan 10 mg Tablet] 10 mg PO ASDIR PRN #30 tablet 04/02/19 Ondansetron [Zofran Odt 4 mg Tablet] 1 tab PO Q8HP PRN #30 tab.rapdis 04/02/19 Cephalexin Monohydrate [Keflex 500 mg Capsule] 500 mg PO BID 7 Days capsule 04/06/19 Allergies/Adverse Reactions: No Known Allergies Allergy (Verified 04/02/19 20:25) Review of Systems All systems: reviewed and no additional remarkable complaints except as stated - As mentioned in HPI Physical Exam Vital Signs: Temp Pulse Resp BP Pulse Ox 99.2 F 102 H 20 146/85 H 100 04/08/19 11:51 04/08/19 11:51 04/08/19 14:13 04/08/19 14:13 04/08/19 14:13 Intake & Output 04/07/19 04/08/19 04/09/19 06:59 06:59 06:59 Intake Total 50 Balance 50 Weight 100 lb 1.438 oz General appearance: PRESENT: no acute distress, well-developed, well-nourished Head exam: PRESENT: atraumatic, normocephalic Eye exam: PRESENT: conjunctiva pink, EOMI, PERRLA. ABSENT: scleral icterus Ear exam: PRESENT: normal external ear exam Mouth exam: PRESENT: other - Chronic cavitary lesion on the palate Neck exam: ABSENT: carotid bruit, JVD, lymphadenopathy, thyromegaly Respiratory exam: PRESENT: clear to auscultation therese. ABSENT: rales, rhonchi, wheezes Cardiovascular exam: PRESENT: RRR. ABSENT: diastolic murmur, rubs, systolic murmur Pulses: PRESENT: normal dorsalis pedis pul GI/Abdominal exam: PRESENT: normal bowel sounds, soft. ABSENT: distended, guarding, mass, organolmegaly, rebound, tenderness Rectal exam: PRESENT: deferred Extremities exam: PRESENT: full ROM. ABSENT: calf tenderness, clubbing, pedal edema Neurological exam: PRESENT: alert, awake, oriented to person, oriented to place, oriented to time, oriented to situation, CN II-XII grossly intact. ABSENT: motor sensory deficit Results Laboratory Results: 04/08/19 12:40 04/08/19 12:40 04/08/19 04/08/19 04/08/19 12:40 12:40 13:23 WBC 13.7 H RBC 3.39 L Hgb 10.0 L Hct 29.2 L MCV 86 MCH 29.4 MCHC 34.1 RDW 14.4 H Plt Count 475 H Seg Neutrophils % 85.7 H Sodium 136.0 L Potassium 3.3 L Chloride 99 Carbon Dioxide 30 Anion Gap 7 BUN 14 Creatinine 0.91 Est GFR ( Amer) > 60 Glucose 120 H Lactic Acid Calcium 9.9 Total Bilirubin 0.5 AST 26 Alkaline Phosphatase 65 Total Protein 5.7 L Albumin 3.0 L Urine Color YELLOW Urine Appearance CLOUDY Urine pH 5.0 Ur Specific Bliss 1.020 Urine Protein 100 H Urine Glucose (UA) NEGATIVE Urine Ketones 25 H Urine Blood MODERATE H Urine Nitrite NEGATIVE Ur Leukocyte Esterase LARGE H Urine WBC (Auto) >182 Urine RBC (Auto) 83 04/08/19 14:14 WBC RBC Hgb Hct MCV MCH MCHC RDW Plt Count Seg Neutrophils % Sodium Potassium Chloride Carbon Dioxide Anion Gap BUN Creatinine Est GFR ( Amer) Glucose Lactic Acid 0.8 Calcium Total Bilirubin AST Alkaline Phosphatase Total Protein Albumin Urine Color Urine Appearance Urine pH Ur Specific Bliss Urine Protein Urine Glucose (UA) Urine Ketones Urine Blood Urine Nitrite Ur Leukocyte Esterase Urine WBC (Auto) Urine RBC (Auto) 04/08/19 04/08/19 12:40 12:40 Creatine Kinase 20 L CK-MB (CK-2) 0.37 Troponin I 0.020 Impressions: Ribs w/Chest X-Ray 04/08/19 13:51 IMPRESSION: NO PNEUMOTHORAX. NO DISPLACED RIB FRACTURES. Assessment and Plan - Diagnosis (1) UTI (urinary tract infection) Is this a current diagnosis for this admission?: Yes Plan: Recent urine culture grew Proteus sensitive to Rocephin. Will start patient on IV Rocephin. Will pursue an abdominal CT to rule out Proteus-associated urolithiasis as she does complain of lower abdominal pain. (2) Dehydration Is this a current diagnosis for this admission?: Yes Plan: We will start patient IV fluids. (3) Hypokalemia Is this a current diagnosis for this admission?: Yes Plan: Likely related to poor oral intake. Replace with p.o. potassium. Repeat BMP. (4) Gastritis Qualifiers: Gastritis type: unspecified gastritis Chronicity: acute Gastritis bleeding: without bleeding Qualified Code(s): K29.00 - Acute gastritis without bleeding Is this a current diagnosis for this admission?: Yes Plan: He also does complain of epigastric pain. Possibly doxycycline-related gastritis. We will start her on Protonix. - Time Time Spent with patient: 25-34 minutes
--- NOTE | 2019-04-08 16:08 | ADVANCED CARE ---
- Diagnosis (1) UTI (urinary tract infection) Diagnosis Current: Yes (2) Dehydration Diagnosis Current: Yes (3) Hypokalemia Diagnosis Current: Yes (4) Gastritis Diagnosis Current: Yes Resuscitation Status: Full Code Discussion: Discussed with patient and with her daughter on bedside in length. Patient initially said she was a DNR before but after further discussion she said she wants us to attempt resuscitation including chest compressions, defibrillation and temporary mechanical ventilation if the need arises. She verbalized that she does not want to be on long-term ventilation. She says that she wants her daughter, Swati Herrera and her Narayan Andrew to be her surrogate medical decision makers.
[2019-04-08] MEDS ORDERED: MAG HYDROX/AL HYDROX/SIMETH SUSP 30 ML UDCUP PO ONE (16:19)
[2019-04-08] MEDS ORDERED: LIDOCAINE 2% VISCOUS SOLN 20 ML UDCUP PO ONE (16:19)
[2019-04-08] MEDS ORDERED: METOCLOPRAMIDE HCL ORAL SOLN 10 MG/10 ML UDCUP PO ONE (16:19)
--- NOTE | 2019-04-08 16:24 | RADIOLOGY REPORT (SQ) ---
EXAM DESCRIPTION: CT ABD/PELVIS NO ORAL OR IV COMPLETED DATE/TIME: 04/08/2019 4:03 pm REASON FOR STUDY: abdominal pain COMPARISON: None. TECHNIQUE: CT scan of the abdomen and pelvis performed without intravenous or oral contrast. Images reviewed with lung, soft tissue, and bone windows. Reconstructed coronal and sagittal MPR images revi ewed. All images stored on PACS. All CT scanners at this facility use dose modulation, iterative reconstruction, and/or weight based d osing when appropriate to reduce radiation dose to as low as reasonably achievable (ALARA). [facility]: Dose Right [facility]: CareDose [facility]: Dose Right [facility]: Teradose 4D [facility]: Smart SPD Control Systems RADIATION DOSE: CT Rad equipment meets quality standard of care and radiation dose reduction techniq ues were employed. CTDIvol: 5.9 mGy. DLP: 296 mGy-cm.mGy. LIMITATIONS: None. FINDINGS: LOWER CHEST: No significant findings. No nodules or infiltrates. NON-CONTRASTED LIVER, SPLEEN, ADRENALS: Evaluation limited by lack of IV contrast. No identified sign ificant masses. PANCREAS: No masses. No peripancreatic inflammatory changes. GALLBLADDER: Not visualized, presumably surgically absent. RIGHT KIDNEY AND URETER: No suspicious masses. Assessment limited by lack of IV contrast. Large cys tic area involving the lower pole, measuring 5 cm. Large calcification measuring 2.3 cm with an xiomara cent smaller calcification measuring 8 mm. Severe hydronephrosis and hydroureter. Calculi in the d istal ureter measuring 3 mm and 6 mm. LEFT KIDNEY AND URETER: Possible small cortical cysts. Assessment limited by lack of IV contrast. N o significant calcifications. No hydronephrosis or hydroureter. AORTA AND RETROPERITONEUM: No aneurysm. No retroperitoneal masses or adenopathy. BOWEL AND PERITONEAL CAVITY: Previous resection of a portion of the ascending colon. No obvious mass es or inflammatory changes. No free fluid. APPENDIX: Apparently surgically absent. PELVIS, BLADDER, AND ABDOMINAL WALL:No abnormal masses. No free fluid. Bladder normal. BONES: No significant findings. Degenerative changes in the spine. OTHER: No other significant finding. IMPRESSION: 1. SEVERE RIGHT SIDE HYDRONEPHROSIS AND HYDROURETER. CALCULI IN THE DISTAL RIGHT URETER MEASURING 3 MM AND 6 MM. 2. LARGE CYSTIC AREA INVOLVING THE LOWER POLE OF THE RIGHT KIDNEY WITH LARGE CALCULI WITHIN THE LUMEN . 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 3. NO OTHER SIGNIFICANT OR ACUTE PROCESS IN THE ABDOMEN OR PELVIS. COMMENT: Quality ID # [id number]: Final reports with documentation of one or more dose reduction techniques (e.g., Automated exposure control, adjustment of the mA and/or kV according to patient size, use of iterative reconstruction technique) TECHNICAL DOCUMENTATION: JOB ID: [id number]- All Rights Reserved Reading location - IP/workstation name: [email or web address]
[2019-04-08] MEDS: NORMAL SALINE 1000 ML 1,000 ML IV PRN (20:11)
[2019-04-08] MEDS: HEPARIN SOD (PORCINE) 5,000 UNIT/ML 1 ML VIAL SUBCUT SCH (23:05)
[2019-04-08] MEDS: PANTOPRAZOLE SODIUM 40 MG VIAL IV SCH (23:06)
[2019-04-08] MEDS: FLUTICASONE NASAL SPRAY 50 MCG/SPRY 120 SPRAY/16 GM NASL PRN (23:07)
[2019-04-09 05:51] LABS: ABSOLUTE BASOPHILS # (AUTO) 0.1 10^3/uL (0.0-0.2); ABSOLUTE LYMPHOCYTES (AUTO) 0.8 10^3/uL (0.5-4.7); ABSOLUTE MONOCYTES (AUTO) 0.7 10^3/uL (0.1-1.4); ABSOLUTE NEUT (AUTO) 8.4 10^3/uL (1.7-8.2); BASOPHILS % (AUTO) 0.7 % (0-2); EOSINOPHILS % (AUTO) 0.2 % (0-6); HEMATOCRIT 25.1 % (36.0-47.0); HEMOGLOBIN 8.6 g/dL (12.0-15.5); LYMPHOCYTES % (AUTO) 7.8 % (13-45); MEAN CORPUSCULAR HEMOGLOBIN 29.7 pg (27.0-33.4); MEAN CORPUSCULAR HGB CONC 34.3 g/dL (32.0-36.0); MEAN CORPUSCULAR VOLUME 87 fl (80-97); MONOCYTES % (AUTO) 7.4 % (3-13); PLATELET COUNT 360 10^3/uL (150-450); RED BLOOD COUNT 2.89 10^6/uL (3.72-5.28); RED CELL DISTRIBUTION WIDTH 14.6 % (11.5-14.0); SEGMENTED NEUTROPHILS % (AUTO) 83.9 % (42-78); TOTAL CELLS COUNTED % (AUTO) 100 %
[2019-04-09] MEDS: NORMAL SALINE 1000 ML 1,000 ML IV PRN ×2 (06:01→23:51)
[2019-04-09 06:06] LABS: ANION GAP 6 (5-19); BLOOD UREA NITROGEN 12 mg/dL (7-20); CALCIUM 9.2 mg/dL (8.4-10.2); CARBON DIOXIDE 26 mmol/L (22-30); CHLORIDE 106 mmol/L (98-107); GLUCOSE 76 mg/dL (75-110); POTASSIUM 4.2 mmol/L (3.6-5.0)
[2019-04-09] MEDS: PANTOPRAZOLE SODIUM 40 MG VIAL IV SCH ×2 (09:27→22:41)
[2019-04-09] MEDS: HEPARIN SOD (PORCINE) 5,000 UNIT/ML 1 ML VIAL SUBCUT SCH ×2 (09:27→22:42)
[2019-04-09] MEDS: CEFTRIAXONE 1 GM/D5W RTU 1 GM/50 ML RTUPB IV SCH (09:28)
[2019-04-09] MEDS ORDERED: METOCLOPRAMIDE HCL 10 MG TABLET PO PRN (09:49)
[2019-04-09] MEDS ORDERED: ONDANSETRON 4 MG TAB.RAPDIS PO PRN (09:49)
[2019-04-09] MEDS ORDERED: CIPROFLOXACIN HCL/DEXAMETH OTIC DROP 7.5 ML OT SCH (10:00)
--- NOTE | 2019-04-09 10:55 | PDOC PROGRESS REPORT ---
Subjective Progress Note for:: 04/09/19 Subjective:: The patient is still feeling poorly. Dysarthria from poorly fitting upper denture. Still feels very weak. Has managed to walk to the bathroom but needs assistance. Abdominal pain is slightly better. Nasal Congestion as well. Reason For Visit: UTI,DEHYDRATION,HYPOKALEMIA Physical Exam Vital Signs: Temp Pulse Resp BP Pulse Ox 97.7 F 100 16 121/66 98 04/09/19 09:06 04/09/19 09:06 04/09/19 09:06 04/09/19 09:06 04/09/19 09:06 Intake & Output 04/08/19 04/09/19 04/10/19 06:59 06:59 06:59 Intake Total 1787 Balance 1787 Weight 47.3 kg General appearance: PRESENT: mild distress, thin, well-developed - Well- developed but frail-appearing 83-year-old female resting in bed. Eye exam: PRESENT: conjunctiva pale. ABSENT: conjunctival injection, scleral icterus Ear exam: PRESENT: normal external ear exam. ABSENT: bleeding, drainage Mouth exam: PRESENT: moist, other - Upper plate loosely fitting. Creates dysarthric speech. Patient reports difficulty swallowing as well. Teeth exam: PRESENT: poor dentation Respiratory exam: PRESENT: rales - Faint rales at the right base, symmetrical, unlabored. ABSENT: accessory muscle use, rhonchi, tachypnea, wheezes Cardiovascular exam: PRESENT: RRR, +S1, +S2, systolic murmur - 2/6 GI/Abdominal exam: PRESENT: normal bowel sounds, soft, other - No bruising on the left side of the abdomen. ABSENT: ascites, distended, guarding, tenderness Rectal exam: PRESENT: deferred Extremities exam: ABSENT: joint swelling, pedal edema Musculoskeletal exam: PRESENT: ambulatory. ABSENT: normal inspection - Decreased muscle mass Neurological exam: PRESENT: alert, awake, oriented to person, oriented to place, oriented to time, oriented to situation, CN II-XII grossly intact Psychiatric exam: PRESENT: flat affect. ABSENT: agitated, anxious Focused psych exam: ABSENT: delusional, restlessness Skin exam: PRESENT: dry, pallor, warm. ABSENT: rash Results Laboratory Results: 04/09/19 05:36 04/09/19 05:36 04/08/19 04/08/19 04/08/19 12:40 12:40 13:23 WBC 13.7 H RBC 3.39 L Hgb 10.0 L Hct 29.2 L MCV 86 MCH 29.4 MCHC 34.1 RDW 14.4 H Plt Count 475 H Seg Neutrophils % 85.7 H Sodium 136.0 L Potassium 3.3 L Chloride 99 Carbon Dioxide 30 Anion Gap 7 BUN 14 Creatinine 0.91 Est GFR ( Amer) > 60 Glucose 120 H Lactic Acid Calcium 9.9 Total Bilirubin 0.5 AST 26 Alkaline Phosphatase 65 Total Protein 5.7 L Albumin 3.0 L Urine Color YELLOW Urine Appearance CLOUDY Urine pH 5.0 Ur Specific [place] 1.020 Urine Protein 100 H Urine Glucose (UA) NEGATIVE Urine Ketones 25 H Urine Blood MODERATE H Urine Nitrite NEGATIVE Ur Leukocyte Esterase LARGE H Urine WBC (Auto) >182 Urine RBC (Auto) 83 04/08/19 04/09/19 04/09/19 14:14 05:36 05:36 WBC 10.0 RBC 2.89 L Hgb 8.6 L Hct 25.1 L MCV 87 MCH 29.7 MCHC 34.3 RDW 14.6 H Plt Count 360 Seg Neutrophils % 83.9 H Sodium 138.4 Potassium 4.2 Chloride 106 Carbon Dioxide 26 Anion Gap 6 BUN 12 Creatinine 0.80 Est GFR ( Amer) > 60 Glucose 76 Lactic Acid 0.8 Calcium 9.2 Total Bilirubin AST Alkaline Phosphatase Total Protein Albumin Urine Color Urine Appearance Urine pH Ur Specific [place] Urine Protein Urine Glucose (UA) Urine Ketones Urine Blood Urine Nitrite Ur Leukocyte Esterase Urine WBC (Auto) Urine RBC (Auto) 04/08/19 04/08/19 12:40 12:40 Creatine Kinase 20 L CK-MB (CK-2) 0.37 Troponin I 0.020 Impressions: Ribs w/Chest X-Ray 04/08/19 13:51 IMPRESSION: NO PNEUMOTHORAX. NO DISPLACED RIB FRACTURES. Abdomen/Pelvis CT 04/08/19 15:32 IMPRESSION: 1. SEVERE RIGHT SIDE HYDRONEPHROSIS AND HYDROURETER. CALCULI IN THE DISTAL RIG HT URETER MEASURING 3 MM AND 6 MM. 2. LARGE CYSTIC AREA INVOLVING THE LOWER POLE OF THE RIGHT KIDNEY WITH LARGE CALCULI WITHIN THE LUMEN. 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 3. NO OTHER SIGNIFICANT OR ACUTE PROCESS IN THE ABDOMEN OR PELVIS. Assessment and Plan - Diagnosis (1) UTI (urinary tract infection) Is this a current diagnosis for this admission?: Yes Plan: Recent urine culture grew Proteus sensitive to Rocephin. Will start patient on IV Rocephin. Will pursue an abdominal CT to rule out Proteus-associated urolithiasis as she does complain of lower abdominal pain. 04/09/2019-patient with renal calculi. Will make it difficult to eradicate the infection. Continue antibiotics. (2) Dehydration Is this a current diagnosis for this admission?: Yes Plan: We will start patient IV fluids. 04/09/2019-we will increase IV fluids to help flush renal calculi. In addition it should help with the tachycardia. (3) Hypokalemia Is this a current diagnosis for this admission?: Yes Plan: Likely related to poor oral intake. Replace with p.o. potassium. Repeat BMP. 04/09/2019-continue to monitor potassium. Patient is able to take some medications by mouth. There is been no reported problems taking the potassium chloride. (4) Gastritis Qualifiers: Gastritis type: unspecified gastritis Chronicity: acute Gastritis bleeding: without bleeding Qualified Code(s): K29.00 - Acute gastritis without bleeding Is this a current diagnosis for this admission?: Yes Plan: He also does complain of epigastric pain. Possibly doxycycline-related g astritis. We will start her on Protonix. 04/09/2019-I have added Maalox to see if this helps. If it does consider Carafate. (5) Hyponatremia Is this a current diagnosis for this admission?: Yes Plan: 04/09/2019-sodium corrected with normal saline. We will continue to monitor. (6) Dysarthria Is this a current diagnosis for this admission?: Yes Plan: 04/09/2019-this is related to previous surgeries and an ill fitting upper plate. She will have to go back to [facility] for refitting. It is loose undoubtedly because of weight loss. (7) Weight loss Is this a current diagnosis for this admission?: Yes Plan: 04/09/2019-the patient has had a poor appetite. She does report weight loss. I believe she is trying to indicate 12 pounds over the last 2 months. We are trying protein supplements. (8) Hydronephrosis concurrent with and due to calculi of kidney and ureter Is this a current diagnosis for this admission?: Yes Plan: 04/09/2019-I have started Flomax. Hopefully this will flush the stones that are in the ureter. She will need urology evaluation as an outpatient. (9) Nasal congestion Is this a current diagnosis for this admission?: Yes Plan: 04/09/2019-continue Flonase. - Time Time Spent with patient: 15-24 minutes Medications reviewed and adjusted accordingly: Yes
[2019-04-09] MEDS: POTASSIUM CHLORIDE 10 MEQ CAPSULE.ER PO SCH (11:01)
[2019-04-09] MEDS: FLUTICASONE NASAL SPRAY 50 MCG/SPRY 120 SPRAY/16 GM NASL PRN (11:01)
[2019-04-09] MEDS ORDERED: MAG HYDROX/AL HYDROX/SIMETH SUSP 30 ML UDCUP ONE (12:30)
[2019-04-09] MEDS: LORATADINE 10 MG TABLET PO SCH (12:41)
[2019-04-09] MEDS ORDERED: MAG HYDROX/AL HYDROX/SIMETH SUSP 30 ML UDCUP PO PRN (12:44)
[2019-04-09] MEDS: FLUTICASONE NASAL SPRAY 50 MCG/SPRY 120 SPRAY/16 GM NASL SCH (18:16)
[2019-04-09] MEDS: DRONABINOL 2.5 MG CAPSULE PO SCH (18:16)
[2019-04-09] MEDS: TAMSULOSIN HCL 0.4 MG CAP.SR.24H PO SCH (18:16)
[2019-04-09] MEDS ORDERED: (PENDING PHARMACY ID) (Fenofibrate [Lofibra] 160 MG) PO SCH (22:00)
[2019-04-09] MEDS ORDERED: MELATONIN 1 MG TABLET PO PRN (22:38)
[2019-04-09] MEDS: FENOFIBRATE NANOCRYSTALLIZED 145 MG TABLET PO SCH (22:42)
[2019-04-09] MEDS: MIRTAZAPINE 15 MG TABLET PO SCH (22:42)
[2019-04-09] MEDS: MELATONIN 3 MG TABLET PO PRN (23:51)
[2019-04-10] MEDS: HEPARIN SOD (PORCINE) 5,000 UNIT/ML 1 ML VIAL SUBCUT SCH ×2 (09:58→21:50)
[2019-04-10] MEDS: PANTOPRAZOLE SODIUM 40 MG VIAL IV SCH ×2 (09:58→21:49)
[2019-04-10] MEDS: FLUTICASONE NASAL SPRAY 50 MCG/SPRY 120 SPRAY/16 GM NASL SCH ×2 (09:59→18:07)
[2019-04-10] MEDS: POTASSIUM CHLORIDE 10 MEQ CAPSULE.ER PO SCH (09:59)
[2019-04-10] MEDS: LORATADINE 10 MG TABLET PO SCH (09:59)
[2019-04-10] MEDS: CEFTRIAXONE 1 GM/D5W RTU 1 GM/50 ML RTUPB IV SCH (10:00)
[2019-04-10] MEDS: DRONABINOL 2.5 MG CAPSULE PO SCH ×2 (12:05→18:07)
[2019-04-10] MEDS: KETOROLAC TROMETHAMINE INJ/PF 30 MG/1 ML SDV IV PRN (12:05)
[2019-04-10] MEDS: NORMAL SALINE 1000 ML 1,000 ML IV PRN (16:44)
[2019-04-10] MEDS: TAMSULOSIN HCL 0.4 MG CAP.SR.24H PO SCH (18:07)
--- NOTE | 2019-04-10 18:36 | PDOC PROGRESS REPORT ---
Subjective Progress Note for:: 04/10/19 Subjective:: The patient continues to look poorly. She struggles with an ill fitting dentures/prosthetic. She will answer questions but again seems very fatigued. Reason For Visit: UTI,DEHYDRATION,HYPOKALEMIA Physical Exam Vital Signs: Temp Pulse Resp BP Pulse Ox 98.0 F 87 20 109/56 L 99 04/10/19 16:10 04/10/19 16:10 04/10/19 16:10 04/10/19 16:10 04/10/19 16:10 Intake & Output 04/09/19 04/10/19 04/11/19 06:59 06:59 06:59 Intake Total 1787 1350 1287 Balance 1787 1350 1287 Weight 47.3 kg 47.8 kg General appearance: PRESENT: cooperative, mild distress, thin - Cachectic, well- developed Head exam: PRESENT: atraumatic, other - Temporal wasting, evidence of previous head and neck surgery. Eye exam: PRESENT: conjunctiva pale. ABSENT: scleral icterus Ear exam: PRESENT: normal external ear exam. ABSENT: bleeding, drainage Mouth exam: PRESENT: dry mucosa, tongue midline, other - Loose fitting upper plate Teeth exam: PRESENT: edentulous Respiratory exam: PRESENT: clear to auscultation therese, symmetrical, unlabored. ABSENT: rales, rhonchi, tachypnea, wheezes Cardiovascular exam: PRESENT: +S1, +S2, tachycardia GI/Abdominal exam: PRESENT: hypoactive bowel sounds, soft. ABSENT: distended, guarding, tenderness Musculoskeletal exam: PRESENT: other - Decreased muscle mass Neurological exam: PRESENT: awake, oriented to person - Appears oriented to person place and situation, oriented to place, oriented to situation. ABSENT: alert - Somewhat somnolent Psychiatric exam: PRESENT: flat affect. ABSENT: agitated, anxious Results Laboratory Results: 04/09/19 05:36 04/09/19 05:36 04/08/19 04/08/19 12:40 12:40 Creatine Kinase 20 L CK-MB (CK-2) 0.37 Troponin I 0.020 Impressions: Ribs w/Chest X-Ray 04/08/19 13:51 IMPRESSION: NO PNEUMOTHORAX. NO DISPLACED RIB FRACTURES. Abdomen/Pelvis CT 04/08/19 15:32 IMPRESSION: 1. SEVERE RIGHT SIDE HYDRONEPHROSIS AND HYDROURETER. CALCULI IN THE DISTAL RIGHT URETER MEASURING 3 MM AND 6 MM. 2. LARGE CYSTIC AREA INVOLVING THE LOWER POLE OF THE RIGHT KIDNEY WITH LARGE CALCULI WITHIN THE LUMEN. 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 3. NO OTHER SIGNIFICANT OR ACUTE PROCESS IN THE ABDOMEN OR PELVIS. Assessment and Plan - Diagnosis (1) UTI (urinary tract infection) Is this a current diagnosis for this admission?: Yes Plan: Recent urine culture grew Proteus sensitive to Rocephin. Will start patient on IV Rocephin. Will pursue an abdominal CT to rule out Proteus-associated urolithiasis as she does complain of lower abdominal pain. 04/09/2019-patient with renal calculi. Will make it difficult to eradicate the infection. Continue antibiotics. 04/10/2019-continue antibiotic therapy. (2) Dehydration Is this a current diagnosis for this admission?: Yes Plan: We will start patient IV fluids. 04/09/2019-we will increase IV fluids to help flush renal calculi. In addition it should help with the tachycardia. 04/10/2019-I have increased the IV fluid again. She still has tachycardia. We will continue to monitor urine output. (3) Hypokalemia Is this a current diagnosis for this admission?: Yes Plan: Likely related to poor oral intake. Replace with p.o. potassium. Repeat BMP. 04/09/2019-continue to monitor potassium. Patient is able to take some medications by mouth. There is been no reported problems taking the potassium chloride. 04/10/2019-continue oral supplementation. Serum potassium is normal today. Continue to monitor. (4) Gastritis Qualifiers: Gastritis type: unspecified gastritis Chronicity: acute Gastritis bleeding: without bleeding Qualified Code(s): K29.00 - Acute gastritis without bleeding Is this a current diagnosis for this admission?: Yes Plan: He also does complain of epigastric pain. Possibly doxycycline-related gastritis. We will start her on Protonix. 04/09/2019-I have added Maalox to see if this helps. If it does consider Carafate. 04/10/2019-no specific complaints about the stomach today. It may be getting better since she has been off of the doxycycline. (5) Hyponatremia Is this a current diagnosis for this admission?: Yes Plan: 04/09/2019-sodium corrected with normal saline. We will continue to monitor. 04/10/2019-patient continues on normal saline. Continue to monitor sodium levels. (6) Dysarthria Is this a current diagnosis for this admission?: Yes Plan: 04/09/2019-this is related to previous surgeries and an ill fitting upper plate. She will have to go back to [facility] for refitting. It is loose undoubtedly because of weight loss. 04/10/2019-the patient has had head and neck surgery for malignancy. Because of weight loss her upper plate/prosthesis does not fit well. This makes it quite uncomfortable for the patient. Speech is difficult and she does write messages fairly often. (7) Weight loss Is this a current diagnosis for this admission?: Yes Plan: 04/09/2019-the patient has had a poor appetite. She does report weight loss. I believe she is trying to indicate 12 pounds over the last 2 months. We are trying protein supplements. 04/10/2019-I did asked patient today if she had a poor appetite or if it was the denture and she said both. Her appetite is been poor and we have started an appetite stimulant as well as an antidepressant. The antidepressants do have the side effect of weight gain as well. With her history of head and neck cancer I did order a CT scan of the head because her presentation of ongoing weight loss and decline could be school admissions representative of a recurrent malignancy. (8) Hydronephrosis concurrent with and due to calculi of kidney and ureter Is this a current diagnosis for this admission?: Yes Plan: 04/09/2019-I have started Flomax. Hopefully this will flush the stones that are in the ureter. She will need urology evaluation as an outpatient. 04/10/2019-there is no indication that the stone has passed. I have increased th e Flomax to 0.8 mg daily. (9) Nasal congestion Is this a current diagnosis for this admission?: Yes Plan: 04/09/2019-continue Flonase. 04/10/2019-the patient is on Flonase. As noted above I have ordered a CT scan of the head. 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 - Time Time Spent with patient: 25-34 minutes Medications reviewed and adjusted accordingly: Yes
[2019-04-10] MEDS: MIRTAZAPINE 15 MG TABLET PO SCH (21:57)
[2019-04-10] MEDS: FENOFIBRATE NANOCRYSTALLIZED 145 MG TABLET PO SCH (21:57)
[2019-04-11] MEDS: KETOROLAC TROMETHAMINE INJ/PF 30 MG/1 ML SDV IV PRN (06:29)
[2019-04-11 06:40] LABS: HEMATOCRIT 24.8 % (36.0-47.0); HEMOGLOBIN 8.3 g/dL (12.0-15.5); MEAN CORPUSCULAR HEMOGLOBIN 29.2 pg (27.0-33.4); MEAN CORPUSCULAR HGB CONC 33.5 g/dL (32.0-36.0); MEAN CORPUSCULAR VOLUME 87 fl (80-97); PLATELET COUNT 355 10^3/uL (150-450); RED BLOOD COUNT 2.85 10^6/uL (3.72-5.28); RED CELL DISTRIBUTION WIDTH 14.6 % (11.5-14.0)
[2019-04-11 06:57] LABS: ALBUMIN 2.3 g/dL (3.5-5.0); ALKALINE PHOSPHATASE 53 U/L (38-126); ANION GAP 12 (5-19); ASPARTATE AMINO TRANSFERASE 18 U/L (14-36); BILIRUBIN,DIRECT 0.3 mg/dL (0.0-0.4); BILIRUBIN,TOTAL 0.3 mg/dL (0.2-1.3); BLOOD UREA NITROGEN 9 mg/dL (7-20); CARBON DIOXIDE 20 mmol/L (22-30); CHLORIDE 111 mmol/L (98-107); POTASSIUM 3.1 mmol/L (3.6-5.0); TOTAL PROTEIN 4.8 g/dL (6.3-8.2)
[2019-04-11 07:01] LABS: GLUCOSE 57 mg/dL (75-110)
[2019-04-11 07:19] LABS: PREALBUMIN 4.9 mg/dL (17.6-36.0)
[2019-04-11 07:24] LABS: ERYTHROCYTE SEDIMENTATION RATE 89 mm/hr (0-30)
[2019-04-11] MEDS: NORMAL SALINE 1000 ML 1,000 ML IV PRN ×2 (09:45→17:56)
[2019-04-11] MEDS: FLUTICASONE NASAL SPRAY 50 MCG/SPRY 120 SPRAY/16 GM NASL SCH ×2 (10:40→17:59)
[2019-04-11] MEDS: POTASSIUM CHLORIDE 10 MEQ CAPSULE.ER PO SCH (10:41)
[2019-04-11] MEDS: LORATADINE 10 MG TABLET PO SCH (10:41)
[2019-04-11] MEDS: PANTOPRAZOLE SODIUM 40 MG VIAL IV SCH ×2 (10:42→21:09)
[2019-04-11] MEDS: HEPARIN SOD (PORCINE) 5,000 UNIT/ML 1 ML VIAL SUBCUT SCH ×2 (10:43→21:10)
[2019-04-11] MEDS: CEFTRIAXONE 1 GM/D5W RTU 1 GM/50 ML RTUPB IV SCH (10:45)
--- NOTE | 2019-04-11 11:10 | RADIOLOGY REPORT (SQ) ---
EXAM DESCRIPTION: CT HEAD WITH COMPLETED DATE/TIME: 04/11/2019 10:29 am REASON FOR STUDY: History head and neck cancer. Rule out recurrence COMPARISON: 01/09/2019 TECHNIQUE: Axial images acquired through the brain with intravenous contrast. Images reviewed with b one, brain and subdural windows. Additional sagittal and coronal reconstructions were generated. Traci ges stored on PACS. All CT scanners at this facility use dose modulation, iterative reconstruction, and/or weight based d osing when appropriate to reduce radiation dose to as low as reasonably achievable (ALARA). [facility]: Dose Right [facility]: CareDose [facility]: Dose Right [facility]: Teradose 4D [facility]: Easy Food CONTRAST TYPE AND DOSE: contrast/concentration: Isovue 350.00 mg/ml; Total Contrast Delivered: 50.0 ml; Total Saline Delivered: 55.0 ml RENAL FUNCTION: BUN 9 creatinine 0.66 RADIATION DOSE: CT Rad equipment meets quality standard of care and radiation dose reduction techniq ues were employed. CTDIvol: 48.5 - 48.6 mGy. DLP: 1807 mGy-cm.. LIMITATIONS: None. FINDINGS: VENTRICLES: Normal size and contour. CEREBRUM: Cortical atrophy. No masses. No hemorrhage. No midline shift. Normal castillo/white matter dif ferentiation. No evidence for acute infarction. No enhancing lesions. CEREBELLUM: No masses. No hemorrhage. No alteration of density. No evidence for acute infarction. No enhancing lesions. EXTRA-AXIAL SPACES: No fluid collections. No enhancing lesions. ORBITS AND GLOBE: No intra- or extraconal masses. Normal contour of globe without masses. CALVARIUM: No fracture. PARANASAL SINUSES: Surgical changes on the right. SOFT TISSUES: No mass or hematoma. OTHER: No other significant finding. IMPRESSION: Surgical changes. Mild involutional changes in the brain. No acute intracranial imagin g finding. No evidence of brain metastases. EVIDENCE OF ACUTE STROKE: NO. TECHNICAL DOCUMENTATION: JOB ID: [id number] Quality ID # [id number]: Final reports with documentation of one or more dose reduction techniques (e.g., Au tomated exposure control, adjustment of the mA and/or kV according to patient size, use of iterative reconstruction technique) 2010 [employer]- All Rights Reserved Reading location - IP/workstation name: [email or web address]
[2019-04-11] MEDS: DRONABINOL 2.5 MG CAPSULE PO SCH ×2 (13:51→17:52)
[2019-04-11] MEDS ORDERED: POTASSIUM ACETATE IV ONE (14:30)
[2019-04-11] MEDS: POTASSIUM CHLORIDE 20 MEQ/50 ML RTU IV SCH ×2 (14:59→17:57)
[2019-04-11] MEDS ORDERED: TAMSULOSIN HCL 0.4 MG CAP.SR.24H PO SCH (18:00)
--- NOTE | 2019-04-11 18:16 | PDOC PROGRESS REPORT ---
Subjective Progress Note for:: 04/11/19 Subjective:: The patient in fact believed at me when I enter the room. She appears to be in better spirits but then closed her eyes as if to sleep. The obturator/denture plate is still quite loose. Reason For Visit: UTI,DEHYDRATION,HYPOKALEMIA Physical Exam Vital Signs: Temp Pulse Resp BP Pulse Ox 98.2 F 81 20 121/54 L 95 04/11/19 13:00 04/11/19 13:00 04/11/19 13:00 04/11/19 13:00 04/11/19 13:00 Intake & Output 04/10/19 04/11/19 04/12/19 06:59 06:59 06:59 Intake Total 1350 1287 2100 Output Total 900 Balance 5858 335 1048 Weight 47.8 kg 51.6 kg General appearance: PRESENT: no acute distress, thin - Thin and extremely frail appearing 83-year-old female resting in bed, well-developed Head exam: PRESENT: other Ear exam: PRESENT: normal external ear exam. ABSENT: bleeding, drainage Mouth exam: PRESENT: dry mucosa, tongue midline, other - Although the patient declined to remove the upper plate, examination of the oral cavity revealed white spots at the back of the upper denture plate. There was no evidence of thrush on tongue. Teeth exam: PRESENT: edentulous Respiratory exam: PRESENT: clear to auscultation therese, symmetrical, unlabored. ABSENT: rales, rhonchi, tachypnea, wheezes Cardiovascular exam: PRESENT: RRR, +S1, +S2 GI/Abdominal exam: PRESENT: normal bowel sounds, soft. ABSENT: distended, guarding, tenderness Extremities exam: ABSENT: joint swelling, pedal edema Musculoskeletal exam: PRESENT: other - Decreased muscle mass Neurological exam: PRESENT: alert, awake, oriented to person, oriented to place, oriented to situation, other - Limited speech mostly due to poorly fitting upper denture. Psychiatric exam: PRESENT: other - Initially smiled and then her affect flattened. Check a became somewhat frustrated when we suggested removing the upper plate for oral exam.. ABSENT: agitated, anxious Focused psych exam: ABSENT: delusional, restlessness Results Laboratory Results: 04/11/19 06:01 04/11/19 06:01 04/11/19 04/11/19 06:01 06:01 WBC 4.0 RBC 2.85 L Hgb 8.3 L Hct 24.8 L MCV 87 MCH 29.2 MCHC 33.5 RDW 14.6 H Plt Count 355 Sodium 142.5 Potassium 3.1 L Chloride 111 H Carbon Dioxide 20 L Anion Gap 12 BUN 9 Creatinine 0.66 Est GFR ( Amer) > 60 Glucose 57 L Calcium 9.0 Magnesium 1.8 Total Bilirubin 0.3 AST 18 Alkaline Phosphatase 53 Total Protein 4.8 L Albumin 2.3 L Prealbumin 4.9 L 04/08/19 04/08/19 12:40 12:40 Creatine Kinase 20 L CK-MB (CK-2) 0.37 Troponin I 0.020 Impressions: Ribs w/Chest X-Ray 04/08/19 13:51 IMPRESSION: NO PNEUMOTHORAX. NO DISPLACED RIB FRACTURES. Abdomen/Pelvis CT 04/08/19 15:32 IMPRESSION: 1. SEVERE RIGHT SIDE HYDRONEPHROSIS AND HYDROURETER. CALCULI IN THE DISTAL RIGHT URETER MEASURING 3 MM AND 6 MM. 2. LARGE CYSTIC AREA INVOLVING THE LOWER POLE OF THE RIGHT KIDNEY WITH LARGE CALCULI WITHIN THE LUMEN. 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 3. NO OTHER SIGNIFICANT OR ACUTE PROCESS IN THE ABDOMEN OR PELVIS. Head CT 04/11/19 11:00 IMPRESSION: Surgical changes. Mild involutional changes in the brain. No acute intracranial imaging finding. No evidence of brain metastases. EVIDENCE OF ACUTE STROKE: NO. Assessment and Plan - Diagnosis (1) UTI (urinary tract infection) Qualifiers: Urinary tract infection type: acute cystitis Is this a current diagnosis for this admission?: Yes Plan: Recent urine culture grew Proteus sensitive to Rocephin. Will start patient on IV Rocephin. Will pursue an abdominal CT to rule out Proteus-associated urolithiasis as she does complain of lower abdominal pain. 04/09/2019-patient with renal calculi. Will make it difficult to eradicate the infection. Continue antibiotics. 04/10/2019-continue antibiotic therapy. 04/11/2019-the antibiotics were changed to Unasyn. This is because of a blood culture positive for enterococcus and yeast. It may be difficult to completely clear the urinary tract infection due to multiple calculi both in the kidney and right ureter. Complete treatment with Unasyn. (2) Dehydration Is this a current diagnosis for this admission?: Yes Plan: We will start patient IV fluids. 04/09/2019-we will increase IV fluids to help flush renal calculi. In addition it should help with the tachycardia. 04/10/2019-I have increased the IV fluid again. She still has tachycardia. We will continue to monitor urine output. 04/11/2019-the dehydration is resolved. In fact she may be a little hypervolemic in the leukopenia and anemia are likely delusional. I will decrease the IV fluid. Continue to monitor intake and output. Renal function is normal at this time. (3) Hypokalemia Is this a current diagnosis for this admission?: Yes Plan: Likely related to poor oral intake. Replace with p.o. potassium. Repeat BMP. 04/09/2019-continue to monitor potassium. Patient is able to take some medications by mouth. There is been no reported problems taking the potassium chloride. 04/10/2019-continue oral supplementation. Serum potassium is normal today. Continue to monitor. 04/11/2019-because of dysphagia the patient has not been taking oral supplements. We have given potassium chloride by intravenous. Continue to work on swallowing and change back to oral formulation as soon as she is able to swallow. (4) Gastritis Qualifiers: Gastritis type: unspecified gastritis Chronicity: acute Gastritis bleeding: without bleeding Qualified Code(s): K29.00 - Acute gastritis without bleeding Is this a current diagnosis for this admission?: Yes Plan: He also does complain of epigastric pain. Possibly doxycycline-related gastritis. We will start her on Protonix. 04/09/2019-I have added Maalox to see if this helps. If it does consider Carafate. 04/10/2019-no specific complaints about the stomach today. It may be getting better since she has been off of the doxycycline. 04/11/2019-the epigastric pain is resolved. It was likely secondary to doxycycline. Continue proton pump inhibitor at this time. (5) Hyponatremia Is this a current diagnosis for this admission?: Yes Plan: 04/09/2019-sodium corrected with normal saline. We will continue to monitor. 04/10/2019-patient continues on normal saline. Continue to monitor sodium level s. 04/11/2019-with all of the normal saline her serum sodium is normal. (6) Dysarthria Is this a current diagnosis for this admission?: Yes Plan: 04/09/2019-this is related to previous surgeries and an ill fitting upper plate. She will have to go back to [facility] for refitting. It is loose undoubtedly because of weight loss. 04/10/2019-the patient has had head and neck surgery for malignancy. Because of weight loss her upper plate/prosthesis does not fit well. This makes it quite uncomfortable for the patient. Speech is difficult and she does write messages fairly often. 04/11/2019-with fully loosely fitting obturator the patient has difficulty speaking as well as swallowing. Most of the time it is understandable but she will write notes if not. (7) Weight loss Is this a current diagnosis for this admission?: Yes Plan: 04/09/2019-the patient has had a poor appetite. She does report weight loss. I believe she is trying to indicate 12 pounds over the last 2 months. We are trying protein supplements. 04/10/2019-I did asked patient today if she had a poor appetite or if it was the denture and she said both. Her appetite is been poor and we have started an appetite stimulant as well as an antidepressant. The antidepressants do have the side effect of weight gain as well. With her history of head and neck cancer I did order a CT scan of the head because her presentation of ongoing weight loss and decline could be fraud representative of a recurrent malignancy. 04/11/2019-the patient is quite thin. Her appetite is been very poor. Part of this could have been the gastritis but a lot of it is due to the swallow. There are issues regarding eating with the obturator out from previous surgery. Please have the dietitian evaluate and work with the patient. Patient does have a history of malignancies. Her sed rate was high but this could be due to infection. I did order a CT scan of the head and there does not appear to be any obvious recurrence of malignancy. (8) Hydronephrosis concurrent with and due to calculi of kidney and ureter Is this a current diagnosis for this admission?: Yes Plan: 04/09/2019-I have started Flomax. Hopefully this will flush the stones that are in the ureter. She will need urology evaluation as an outpatient. 04/10/2019-there is no indication that the stone has passed. I have increased the Flomax to 0.8 mg daily. 04/11/2019-we are continuing the Flomax. Not only does the patient of hydronephrosis with ureteral stones but there is a large calculus in the lower pole the right kidney that appears to be causing tissue damage. Fortunately for the patient her renal function is normal at this time. Continue to monitor. I do not believe she is a candidate for lithotripsy at this time and I believe the stone in the kidney is too large to treat by lithotripsy. She would be a very poor surgical candidate. (9) Nasal congestion Is this a current diagnosis for this admission?: Yes Plan: 04/09/2019-continue Flonase. 04/10/2019-the patient is on Flonase. As noted above I have ordered a CT scan of the head. 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 04/11/2019-possibly due to previous sinus surgery. Continue Flonase. (10) Anemia Qualifiers: Anemia type: other cause Other causes of anemia: chronic disease, other Qualified Code(s): D63.8 - Anemia in other chronic diseases classified elsewhere Is this a current diagnosis for this admission?: Yes Plan: 04/11/2019-I believe the anemia has multiple etiologies. Certainly the patient's chronic illness and poor nutrition. In addition I think some of it is delusional from the IV fluid that she has been receiving. Continue to monitor hemoglobin. (11) Leukopenia Qualifiers: Neutropenia type: due to infection Is this a current diagnosis for this admission?: Yes Plan: 04/11/2019-not only does the patient have the infection in the urinary tract but a blood culture is positive for enterococcus and yeast. It was 1 bottle but these are not normal contaminants. She did have the suggestion of thrush but she declined to remove the obturator plate. I did change her antibiotic therapy to Unasyn and fluconazole. These could also be contributing to hematologic abnormalities. Continue to monitor her CBC. (12) Hypoglycemia Is this a current diagnosis for this admission?: Yes Plan: 04/11/2019-hypoglycemia secondary to poor nutritional intake. Continue to monitor. - Time Time Spent with patient: 15-24 minutes Medications reviewed and adjusted accordingly: Yes Anticipated discharge: SNF Within: within 24 hours
[2019-04-11] MEDS: FLUCONAZOLE 200 MG/NS RTU 200 MG/100 ML RTUPB IV SCH (21:08)
[2019-04-11] MEDS: FENOFIBRATE NANOCRYSTALLIZED 145 MG TABLET PO SCH (21:09)
[2019-04-11] MEDS: MIRTAZAPINE 15 MG TABLET PO SCH (21:09)
[2019-04-11] MEDS: MELATONIN 3 MG TABLET PO PRN (21:09)
[2019-04-12] MEDS: AMPICILLIN SODIUM/SULBACTAM NA 1.5 GM in NORMAL SALINE 50 ML IV SCH ×3 (00:06→11:52)
[2019-04-12] MEDS: NORMAL SALINE 1000 ML 1,000 ML IV PRN ×2 (02:08→11:53)
[2019-04-12 04:44] LABS: ABSOLUTE BASOPHILS # (AUTO) 0.1 10^3/uL (0.0-0.2); ABSOLUTE LYMPHOCYTES (AUTO) 0.5 10^3/uL (0.5-4.7); ABSOLUTE MONOCYTES (AUTO) 0.3 10^3/uL (0.1-1.4); ABSOLUTE NEUT (AUTO) 2.1 10^3/uL (1.7-8.2); BASOPHILS % (AUTO) 1.9 % (0-2); EOSINOPHILS % (AUTO) 1.6 % (0-6); HEMATOCRIT 23.6 % (36.0-47.0); LYMPHOCYTES % (AUTO) 15.3 % (13-45); MEAN CORPUSCULAR HGB CONC 33.6 g/dL (32.0-36.0); MEAN CORPUSCULAR VOLUME 86 fl (80-97); MONOCYTES % (AUTO) 10.8 % (3-13); PLATELET COUNT 320 10^3/uL (150-450); RED BLOOD COUNT 2.74 10^6/uL (3.72-5.28); RED CELL DISTRIBUTION WIDTH 14.5 % (11.5-14.0); SEGMENTED NEUTROPHILS % (AUTO) 70.4 % (42-78); TOTAL CELLS COUNTED % (AUTO) 100 %
[2019-04-12 04:48] LABS: HEMOGLOBIN 7.9 g/dL (12.0-15.5)
[2019-04-12 05:14] LABS: ANION GAP 11 (5-19); BLOOD UREA NITROGEN 7 mg/dL (7-20); CALCIUM 8.7 mg/dL (8.4-10.2); CARBON DIOXIDE 21 mmol/L (22-30); CHLORIDE 112 mmol/L (98-107)
[2019-04-12 05:16] LABS: GLUCOSE 64 mg/dL (75-110)
[2019-04-12 05:17] LABS: POTASSIUM 2.8 mmol/L (3.6-5.0)
[2019-04-12] MEDS ORDERED: POTASSIUM CHLORIDE 20 MEQ/50 ML RTU IV ONE (05:30)
[2019-04-12] MEDS ORDERED: POTASSIUM CHLORIDE 10 MEQ CAPSULE.ER PO SCH (08:00)
[2019-04-12] MEDS: POTASSI CL 20 MEQ/50 ML RIDER 20 MEQ/50 ML RTUPB IV SCH ×3 (08:24→10:58)
[2019-04-12] MEDS: POTASSIUM CHLORIDE 10 MEQ CAPSULE.ER PO SCH (10:05)
[2019-04-12] MEDS: LORATADINE 10 MG TABLET PO SCH (10:05)
[2019-04-12] MEDS: PANTOPRAZOLE SODIUM 40 MG VIAL IV SCH (10:11)
[2019-04-12] MEDS: FLUCONAZOLE 200 MG/NS RTU 200 MG/100 ML RTUPB IV SCH (10:13)
[2019-04-12] MEDS: HEPARIN SOD (PORCINE) 5,000 UNIT/ML 1 ML VIAL SUBCUT SCH (10:18)
[2019-04-12] MEDS: FLUTICASONE NASAL SPRAY 50 MCG/SPRY 120 SPRAY/16 GM NASL SCH (10:20)
[2019-04-12] MEDS: DRONABINOL 2.5 MG CAPSULE PO SCH (12:55)
[2019-04-12 13:46] VITALS: BP 140/65
--- NOTE | 2019-04-12 13:48 | PDOC TRANSFER SUMMARY ---
General - Admit/Disc Date/PCP Admission Date/Primary Care Provider: 04/09/19 10:08 ZARA NOBLE MD Discharge Date: 04/12/19 - Discharge Diagnosis (1) UTI (urinary tract infection) Is this a current diagnosis for this admission?: Yes Summary: Urinary infection with Proteus and group see strep. It may be difficult to eradicate the infection due to multiple kidney stones. The patient is now on Unasyn for broader coverage to include positive blood culture. Unasyn will be completed on April 18. (2) Dehydration Is this a current diagnosis for this admission?: Yes Summary: The patient was dehydrated on admission. She has been getting IV fluids continuously. She may in fact be somewhat hypervolemic causing delusional anemia and leukopenia. She likely may not need IV fluid initially but her in take is quite poor. Monitor intake and output and administer fluids accordingly. I was trying to provide fluids for increased urine output to flush the ureteral stones. (3) Hypokalemia Is this a current diagnosis for this admission?: Yes Summary: Because of the patient's difficulty swallowing we have had to change to intravenous potassium. She did pass a swallow evaluation but with the loose prosthetic it makes swallowing difficult. Monitor potassium and supplement based on levels. (4) Gastritis Is this a current diagnosis for this admission?: Yes Summary: The patient was initially on doxycycline for urinary tract infection. I believe this caused her gastritis. She does not have any more complaints of epigastric discomfort. (5) Hyponatremia Is this a current diagnosis for this admission?: Yes Summary: The patient initially presented with hyponatremia. Her sodium is normalized with IV fluids. Continue to monitor. 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 She is understandable most of the time but can write notes if needed. (7) Weight loss Is this a current diagnosis for this admission?: Yes Summary: The patient's intake has been poor. Based on her pre-albumin she has likely been experiencing a consistent decline with failure to thrive. She did pass a swallow evaluation. Please have the dietitian evaluate and work with the patient. (8) Hydronephrosis concurrent with and due to calculi of kidney and ureter Is this a current diagnosis for this admission?: Yes Summary: The patient has a large right kidney stone in the lower pole causing tissue damage. There were also to ureteral calculi causing significant hydronephrosis. She is on Flomax to try and help pass the stones and I have been giving IV fluids to try and force substantial urine output. She is a extremely poor candidate for any surgical intervention. Possibly urology can retrieve the ureteral stones if necessary. (9) Nasal congestion Is this a current diagnosis for this admission?: Yes Summary: She has had nasal surgery for head neck cancer. The sensation of nasal congestion could be congestion versus anatomy. She reports that the congestion is somewhat new. Continue Flonase at this time. (10) Anemia Is this a current diagnosis for this admission?: Yes Summary: There are several possible etiologies for her anemia. Certainly her nutritional state and poor intake would be 1. I also believe that it could be somewhat delusional. Please monitor hemoglobin. (11) Leukopenia Is this a current diagnosis for this admission?: Yes Summary: The patient's white blood cell count has dipped below normal today. I believe it is partly delusional but it could be an adverse effect of her infection or the antibiotic therapy. Would continue to monitor the white blood cell count. (12) Hypoglycemia Is this a current diagnosis for this admission?: Yes Summary: The hypoglycemia is secondary to poor intake. This may be ongoing failure to thrive. Please have the dietitian evaluate and work with the patient. - Additional Information Resuscitation Status: Full Code Discharge Diet: As Tolerated, Other (Comments) - Currently difficulty swallowing. See discharge summary. Discharge Activity: Activity As Tolerated Prescriptions: Fluconazole in Dextrose,Iso-Os [Fluconazole-Dext 200 mg/100 ml] 200 mg IV DAILY 6 Days #6 piggyback Home Medications: Fenofibrate [Lofibra] 160 mg PO QHS 06/15/12 Ondansetron [Zofran Odt 4 mg Tablet] 1 tab PO Q8HP PRN #30 tab.rapdis 04/02/19 Acetaminophen [Tylenol Extra Strength 500 mg Tablet] 1 tab PO DAILYP PRN 04/08/19 Ferrous Sulfate, Dried [Slow Release Iron] 144 mg PO BID 04/08/19 Metoclopramide HCl [Reglan 10 mg Tablet] 10 mg PO Q6HP PRN 04/08/19 Pantoprazole Sodium 40 mg PO DAILY 04/08/19 Potassium Chloride [Klor-Con 10 Meq Capsule ER] 10 meq PO DAILY 04/08/19 Tramadol HCl [Ultram 50 mg Tablet] 50 mg PO BIDP PRN 04/08/19 Ampicillin Sodium/Sulbactam Na [Unasyn Inj 1.5 gm Vial] 1.5 gm IV Q6 vial 04/12/19 Dronabinol [Marinol 2.5 mg Capsule] 2.5 mg PO BIDPCLS capsule 04/12/19 Fluconazole in Dextrose,Iso-Os [Fluconazole-Dext 200 mg/100 ml] 200 mg IV DAILY 6 Days #6 piggyback 04/12/19 Fluticasone Propionate [Flonase Nasal Independence 50 Mcg/Independence 16 gm] 1 spray NASL BID spray.pump 04/12/19 Loratadine [Claritin 10 mg Tablet] 10 mg PO DAILY tablet 04/12/19 Mirtazapine [Remeron 15 mg Tablet] 7.5 mg PO QHS tablet 04/12/19 Tamsulosin HCl [Flomax 0.4 mg Cap.sr] 0.8 mg PO PCSUPPER cap.sr.24h 04/12/19 History of Present Illness Admission Date/PCP: 04/09/19 10:08 ZARA NOBLE MD Patient complains of: The patient failed outpatient treatment for a urinary tract infection. History of Present Illness: RAQUEL BARRIOS is a 83 year old female with a complex medical history including multiple malignancies. She was initially seen in the emergency department and found to have a urinary tract infection. She was placed on doxycycline. Cultures eventually grew Proteus and group C Streptococcus. She returned 2 days later when she was feeling worse. Further work-up revealed a large right kidney calculus in the calyx. There is associated tissue damage. There were 2 ureteral stones causing marked hydronephrosis. She did have an elevated white blood cell count as well. She was referred to the hospital service for admiss ion. Hospital Course Hospital Course: This is been a difficult hospital course for the patient. Upon admission she was placed on ceftriaxone based on the initial urine culture that grew the strep and Proteus. Further work-up revealed the right kidney pathology and kidney stones with hydronephrosis. She had multiple electrolyte abnormalities. Her swallow was compromised because of the poorly fitting upper dentures/prosthesis due to weight loss. She did pass a swallowing study however it is difficult for her to swallow due to the obturator. She states that if she takes the obturator out there is exposed bone/a hole under the plate and that she is not supposed to eat or drink with the plate out. Subsequently she has not been taking all of her medications. We have been giving her potassium by intravenous. Her sugars have been borderline hypoglycemic. I have initiated Marinol to try and stimulate the appetite. In addition I have initiated mirtazapine to help with depression and possibly encourage weight gain. A blood culture set was positive for enterococcus and yeast. These are very unlikely to be contaminants. On mouth exam there were some white patches in the posterior pharynx. I was unable to examine her palate under the obturator plate. She certainly could have additional infection in the right kidney and so I change the antibiotics to Unasyn to cover the Proteus, strep and enterococcus. I also started fluconazole for suspected yeast infection. The elevated sed rate certainly could be from infection. Overall I believe the patient is failing to thrive. I am not sure if any of this is truly correctable. I believe her prognosis is fair to poor. Consider palliative care consult. Physical Exam Vital Signs: Temp Pulse Resp BP Pulse Ox 98.2 F 69 16 119/64 99 04/12/19 00:14 04/12/19 00:14 04/12/19 00:14 04/12/19 00:14 04/12/19 00:14 Intake & Output 04/11/19 04/12/19 04/13/19 06:59 06:59 06:59 Intake Total 1287 3418 1350 Output Total 900 Balance 387 3418 1350 Weight 51.6 kg 49.8 kg General appearance: PRESENT: no acute distress, cooperative, thin Head exam: PRESENT: other - Chronic postoperative changes from head and neck cancer surgery Eye exam: PRESENT: conjunctiva pale. ABSENT: scleral icterus Ear exam: PRESENT: normal external ear exam. ABSENT: bleeding, drainage Mouth exam: PRESENT: other - Loosefitting up to regular plate. Respiratory exam: PRESENT: clear to auscultation therese, symmetrical, unlabored. ABSENT: accessory muscle use, rales, rhonchi, tachypnea, wheezes Cardiovascular exam: PRESENT: RRR, +S1, +S2 GI/Abdominal exam: PRESENT: normal bowel sounds, soft. ABSENT: distended, guarding, tenderness Extremities exam: ABSENT: joint swelling, pedal edema Musculoskeletal exam: PRESENT: other - Decreased muscle mass Neurological exam: PRESENT: alert, awake, oriented to person, oriented to place, oriented to time, oriented to situation, other - Dysarthria Psychiatric exam: PRESENT: appropriate affect - She actually smiled today.. ABSENT: agitated, anxious Focused psych exam: ABSENT: delusional, restlessness Results Laboratory Results: 04/12/19 04:17 04/12/19 04:17 04/12/19 04/12/19 04:17 04:17 WBC 3.0 L RBC 2.74 L Hgb 7.9 L Hct 23.6 L MCV 86 MCH 29.0 MCHC 33.6 RDW 14.5 H Plt Count 320 Seg Neutrophils % 70.4 Sodium 143.5 Potassium 2.8 L* Chloride 112 H Carbon Dioxide 21 L Anion Gap 11 BUN 7 Creatinine 0.64 Est GFR ( Amer) > 60 Glucose 64 L Calcium 8.7 Magnesium 1.6 04/08/19 14:14 Blood Blood Culture - Final Enterococcus Faecalis(Group D) Yeast, Not Valeri Albicans 04/08/19 04/08/19 12:40 12:40 Creatine Kinase 20 L CK-MB (CK-2) 0.37 Troponin I 0.020 Impressions: Ribs w/Chest X-Ray 04/08/19 13:51 IMPRESSION: NO PNEUMOTHORAX. NO DISPLACED RIB FRACTURES. Abdomen/Pelvis CT 04/08/19 15:32 IMPRESSION: 1. SEVERE RIGHT SIDE HYDRONEPHROSIS AND HYDROURETER. CALCULI IN THE DISTAL RIGHT URETER MEASURING 3 MM AND 6 MM. 2. LARGE CYSTIC AREA INVOLVING THE LOWER POLE OF THE RIGHT KIDNEY WITH LARGE CALCULI WITHIN THE LUMEN. 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 3. NO OTHER SIGNIFICANT OR ACUTE PROCESS IN THE ABDOMEN OR PELVIS. Head CT 04/11/19 11:00 IMPRESSION: Surgical changes. Mild involutional changes in the brain. No acute intracranial imaging finding. No evidence of brain metastases. EVIDENCE OF ACUTE STROKE: NO. Transfer Plan - Disposition Transfer Plan: Defer to [facility]. - Time Spent with Patient Time spent with patient: Greater than 30 Minutes Qualifiers - * PATIENT BEING DISCHARGED WITH ANY OF THE FOLLOWING DIAGNOSIS: No Acute Heart Failure - Is this a Heart Failure Patient?: No Plan Discharge Plan: Transfer to [facility] facility. Time Spent: Greater than 30 Minutes
== END 2019-04-12 16:00 | DRG 690 ==
LOC: ER 11:42 → INTOOBSV 15:05 → EH 15:05 → 5 19:05 → OBSVTOIN 04-09 10:08
PROVIDERS: ADMIT Internal Medicine; ATTEND Internal Medicine
DX: N30.00 Acute cystitis without hematuria (principal); R78.81 Bacteremia; N13.30 Unspecified hydronephrosis; E87.1 Hypo-osmolality and hyponatremia; E86.0 Dehydration; D64.9 Anemia, unspecified; B96.89 Other specified bacterial agents as the cause of diseases classified elsewhere; B96.4 Proteus (mirabilis) (morganii) as the cause of diseases classified elsewhere; N20.0 Calculus of kidney; E87.6 Hypokalemia; D72.819 Decreased white blood cell count, unspecified; E16.2 Hypoglycemia, unspecified; B95.5 Unspecified streptococcus as the cause of diseases classified elsewhere; F32.9 Major depressive disorder, single episode, unspecified; B95.2 Enterococcus as the cause of diseases classified elsewhere; I10 Essential (primary) hypertension; I25.10 Atherosclerotic heart disease of native coronary artery without angina pectoris; K21.9 Gastro-esophageal reflux disease without esophagitis; E78.5 Hyperlipidemia, unspecified; M17.0 Bilateral primary osteoarthritis of knee; K29.00 Acute gastritis without bleeding; R47.1 Dysarthria and anarthria; R62.7 Adult failure to thrive; R09.81 Nasal congestion; Z95.5 Presence of coronary angioplasty implant and graft; Z85.41 Personal history of malignant neoplasm of cervix uteri; Z85.22 Personal history of malignant neoplasm of nasal cavities, middle ear, and accessory sinuses; I25.2 Old myocardial infarction; Z85.828 Personal history of other malignant neoplasm of skin
CPT/HCPCS: 36415; 70460; 71046; 74176; 80048; 80053; 81001; 82550; 82553; 82962; 83605; 83690; 83735; 84134; 84439; 84443; 84481; 84484; 85025; 85027; 85652; 87040; 87077; 87086; 87088; 87186; 93005; 93010; 96361; 96365; 96374; 99284; 99285; A9270-GY; G0378; J0295; J0696; J1450; J1644; J1885; J3480; J3490; J7030; J7042; J7120; S0164

== ENCOUNTER 2019-05-31 18:27 | Emergency (ER) | payer MEDICARE, OTHER ==
--- NOTE | 2019-05-31 20:07 | ER Document Report ---
ED Dizziness/Weakness - General Chief Complaint: General Weakness Stated Complaint: GENERAL WEAKNESS Time Seen by Provider: 05/31/19 20:06 Primary Care Provider: VIKY VEGAS MD [Primary Care Provider] - Follow up as needed Information source: Patient Notes: Ms. 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 Patient states that she was just discharged today from [facility] and felt too weak to go home. She states that she was there for approximately 1 month to regain her strength. Previously she was hospitalized for UTI. Patient denies any fever, chills, chest pain, shortness of breath, abdominal pain, nausea vomiting or diarrhea. She does endorse having a poor appetite and eating very little at [facility]. She states that the food at [facility] was quite terrible. She denies any dizziness or lower extremity edema. She was previously able to ambulate independently without a walker and perform all her ADLs prior to being hospitalized for the UTI and going to [facility]. TRAVEL OUTSIDE OF THE [place] IN LAST 30 DAYS: No - Related Data Allergies/Adverse Reactions: No Known Allergies Allergy (Verified 05/31/19 18:48) Past Medical History - Social History Smoking Status: Former Smoker Chew tobacco use (# tins/day): No Frequency of alcohol use: None Family History: Reviewed & Not Pertinent Patient has suicidal ideation: No Patient has homicidal ideation: No - Past Medical History Cardiac Medical History: Reports: Hx Heart Attack - pt states very mild attack, Hx Hypercholesterolemia Denies: Hx Atrial Fibrillation, Hx Congestive Heart Failure, Hx Coronary Artery Disease, Hx Hypertension, Hx Peripheral Vascular Disease, Hx Heart Murmur Pulmonary Medical History: Denies: Hx Asthma, Hx Bronchitis, Hx COPD, Hx Sleep Apnea, Hx Tuberculosis Neurological Medical History: Denies: Hx Cerebrovascular Accident, Hx Seizures Endocrine Medical History: Denies: Hx Hyperthyroidism, Hx Hypothyroidism Renal/ Medical History: Denies: Hx Kidney Stones, Hx Ovarian Cysts, Hx Peritoneal Dialysis, Hx Pelvic Inflammatory Disease Malignancy Medical History: Reports: Hx Cervical Cancer, Hx Skin Cancer. Denies: Hx Breast Cancer, Hx Leukemia, Hx Lung Cancer, Hx Ovarian Cancer GI Medical History: Reports: Hx Gastroesophageal Reflux Disease. Denies: Hx Crohn's Disease, Hx Hiatal Hernia, Hx Irritable Bowel, Hx Liver Failure, Hx Pancreatitis, Hx Ulcer Musculoskeletal Medical History: Reports Hx Arthritis - knees, Denies Hx Fibromyalgia, Denies Hx Muscular Dystrophy Psychiatric Medical History: Denies: Hx Bipolar Disorder, Hx Depression, Hx Post Traumatic Stress Disorder Traumatic Medical History: Denies: Hx Fractures Infectious Medical History: Denies: Hx HIV Past Surgical History: Reports: Hx Appendectomy, Hx Bowel Surgery - Apr 2011 Bowel Resection, Hx Cholecystectomy, Hx Hysterectomy. Denies: Hx Section, Hx Colostomy, Hx Coronary Artery Bypass Graft, Hx Gastric Bypass Surgery, Hx Herniorrhaphy, Hx Mastectomy, Hx Pacemaker, Hx Tonsillectomy, Hx Tubal Ligation - Immunizations Hx Diphtheria, Pertussis, Tetanus Vaccination: No Hx Pneumococcal Vaccination: 04/23/18 Review of Systems - Review of Systems Constitutional: See HPI, Weakness EENT: No symptoms reported Cardiovascular: No symptoms reported Respiratory: No symptoms reported Gastrointestinal: No symptoms reported Genitourinary: No symptoms reported Female Genitourinary: No symptoms reported Musculoskeletal: See HPI Skin: No symptoms reported Hematologic/Lymphatic: No symptoms reported Neurological/Psychological: No symptoms reported Physical Exam - Vital signs Vitals: Temp Pulse Resp BP Pulse Ox 97.7 F 83 16 109/66 97 05/31/19 18:48 05/31/19 18:48 05/31/19 18:48 05/31/19 18:48 05/31/19 18:48 Interpretation: Normal - General General appearance: Appears well, Alert Notes: Cachectic - HEENT Head: Normocephalic, Atraumatic, Other - s/p well-healed right maxillary sinus surgery Eyes: Normal Pupils: PERRL - Respiratory Respiratory status: No respiratory distress Chest status: Nontender Breath sounds: Normal Chest palpation: Normal - Cardiovascular Rhythm: Regular Heart sounds: Normal auscultation Murmur: No - Abdominal Inspection: Normal Distension: No distension Bowel sounds: Normal Tenderness: Nontender Organomegaly: No organomegaly - Back Back: Normal, Nontender - Extremities General upper extremity: Normal inspection, Nontender, Normal color, Normal ROM, Normal temperature General lower extremity: Normal inspection, Nontender, Normal color, Normal ROM, Normal temperature, Normal weight bearing. No: Chen's sign - Neurological Neuro grossly intact: Yes Cognition: Normal Orientation: AAOx4 Newington Coma Scale Eye Opening: Spontaneous Newington Coma Scale Verbal: Oriented Roman Coma Scale Motor: Obeys Commands Newington Coma Scale Total: 15 Speech: Normal Motor strength normal: LUE, RUE, LLE, RLE Additional motor exam normals: Equal coating technician Babinski reflex: Normal (flexor plantar) Sensory: Normal - Psychological Associated symptoms: Normal affect, Normal mood - Skin Skin Temperature: Warm Skin Moisture: Dry Skin Color: Normal Course - Re-evaluation Re-evalutation: Patient is generally well-appearing and nontoxic. However she is chronically cachectic and has chronic history of poor appetite. Vitals within normal limits. Differential diagnosis includes UTI, pneumonia, electrolyte abnormality, dehydration, anemia 05/31/19 23:03 Full labs obtained and CXR. CBC does not show significant leukocytosis or left shift. H&H is slightly low however essentially baseline for this patient upon further evaluation of labs from previous ED visits. She is chronically anemic. CMP is unremarkable and within normal limits. UA negative for infection. Small amount of blood noted however this is likely related to the fact that it was a straight cath and slightly traumatic. Initial troponin is negative and was obtained only as the patient endorsed weakness as a screening troponin but the patient did not endorse chest pain therefore no indication for repeat. 05/31/19 23:06 Nursing staff p.o. challenge the patient without issues. Recommended that they ambulate the patient here in the ED. 05/31/19 23:13 Per nursing staff, the patient was running with a walker and had no difficulty getting out of bed. Nursing staff also spoke to the patient's daughter who stated the patient is unable to care for herself at home and there is no one available to come pick her up at this point in time. Patient will be made a social hold and evaluated by care coordination in the a.m. for further disposition. No indication at this point in time for admission. 06/01/19 06:05 Patient signed out to pending discharge planning. Order already placed. Patient otherwise safe to be discharged home if the patient's family is able to pick her up. She was discharged earlier today from [facility] as she was able to ambulate in the facility without any assistance or use of an aid, this is per the patient's report. - Vital Signs Vital signs: Temp Pulse Resp BP Pulse Ox 97.7 F 83 16 109/66 97 11/08/19 18:48 05/31/19 18:48 05/31/19 18:48 05/31/19 18:48 05/31/19 18:48 - Laboratory Result Diagrams: 05/31/19 20:42 05/31/19 20:42 Laboratory results interpreted by me: 05/31/19 05/31/19 05/31/19 20:42 20:42 20:42 RBC 3.48 L Hgb 9.7 L Hct 29.7 L RDW 16.6 H Chloride 111 H Total Protein 5.9 L Albumin 2.7 L Urine Blood SMALL H Discharge - Discharge Clinical Impression: Leg weakness, bilateral Disposition: OTHER Referrals: VIKY VEGAS MD [Primary Care Provider] - Follow up as needed
[2019-05-31] MEDS ORDERED: NORMAL SALINE 1000 ML 1,000 ML IV ONE (20:53)
--- NOTE | 2019-05-31 21:01 | RADIOLOGY REPORT (SQ) ---
XR CHEST 2 VIEWS EXAM DATE: 05/31/2019 8:17 PM SIGN LANGUAGE INSTRUCTOR HISTORY: Weakness. COMPARISON: 04/06/2019 FINDINGS: The heart size is within normal limits. No consolidation, pleural effusion, or pneumothorax is seen. No acute bony findings. IMPRESSION: No acute cardiopulmonary disease.
[2019-05-31 21:04] LABS: ABSOLUTE BASOPHILS # (AUTO) 0.1 10^3/uL (0.0-0.2); ABSOLUTE EOSINOPHILS # (AUTO) 0.1 10^3/uL (0.0-0.6); ABSOLUTE MONOCYTES (AUTO) 0.2 10^3/uL (0.1-1.4); ABSOLUTE NEUT (AUTO) 2.8 10^3/uL (1.7-8.2); BASOPHILS % (AUTO) 1.2 % (0-2); EOSINOPHILS % (AUTO) 2.8 % (0-6); HEMATOCRIT 29.7 % (36.0-47.0); HEMOGLOBIN 9.7 g/dL (12.0-15.5); LYMPHOCYTES % (AUTO) 23.4 % (13-45); MEAN CORPUSCULAR HEMOGLOBIN 27.8 pg (27.0-33.4); MEAN CORPUSCULAR HGB CONC 32.6 g/dL (32.0-36.0); MEAN CORPUSCULAR VOLUME 85 fl (80-97); MONOCYTES % (AUTO) 5.7 % (3-13); PLATELET COUNT 337 10^3/uL (150-450); RED BLOOD COUNT 3.48 10^6/uL (3.72-5.28); RED CELL DISTRIBUTION WIDTH 16.6 % (11.5-14.0); SEGMENTED NEUTROPHILS % (AUTO) 66.9 % (42-78); TOTAL CELLS COUNTED % (AUTO) 100 %; WHITE BLOOD COUNT 4.2 10^3/uL (4.0-10.5)
[2019-05-31 21:20] LABS: ALBUMIN 2.7 g/dL (3.5-5.0); ALKALINE PHOSPHATASE 40 U/L (38-126); ANION GAP 5 (5-19); ASPARTATE AMINO TRANSFERASE 26 U/L (14-36); BILIRUBIN,DIRECT 0.3 mg/dL (0.0-0.4); BILIRUBIN,TOTAL 0.4 mg/dL (0.2-1.3); BLOOD UREA NITROGEN 14 mg/dL (7-20); CALCIUM 9.5 mg/dL (8.4-10.2); CARBON DIOXIDE 22 mmol/L (22-30); CHLORIDE 111 mmol/L (98-107); GLUCOSE 85 mg/dL (75-110); POTASSIUM 4.2 mmol/L (3.6-5.0); TOTAL PROTEIN 5.9 g/dL (6.3-8.2)
[2019-05-31 21:54] LABS: APPEARANCE,URINE SLIGHTLY-CLOUDY; BILIRUBIN,URINE NEGATIVE (NEGATIVE); COLOR,URINE YELLOW; GLUCOSE, URINE NEGATIVE (NEGATIVE); KETONES,URINE NEGATIVE (NEGATIVE); LEUKOCYTE ESTERASE,URINE NEGATIVE (NEGATIVE); NITRITE,URINE NEGATIVE (NEGATIVE); PROTEIN,URINE NEGATIVE (NEGATIVE); URINE SPECIFIC GRAVITY 1.013; UROBILINOGEN,URINE NEGATIVE mg/dL (<2.0)
--- NOTE | 2019-06-01 13:03 | ER Document Report ---
Doctor's Note Notes: 06/01/19 07:00 Patient was signed out to me by Dr. Todd and end of his shift pending case management evaluation. Please see her note for full history and physical. Briefly, this is an 83-year-old female who presents with generalized weakness. Patient was discharged from a rehab facility yesterday. Her ED work-up so far is unremarkable. Family said he was going to pick her up last night. 1146 I was told by nursing staff that patient's son called and said that there is no caregiver to take care for her at home. She apparently has not been set up with home health nurse. He states that his sister, who takes care of their mom would not be in town for a few days. Patient is awaiting case management evaluation. 1301 She is doing well. She is having lunch. She does not quite like the food. Still awaiting case management evaluation. She has no acute complaints at this time. 06/01/19 15:19 Patient is not yet been evaluated by case management. She is doing well. Patient's care signed out to Dr. Lopez pending case management evaluation and disposition.
--- NOTE | 2019-06-02 12:04 | ER Document Report ---
Doctor's Note Notes: 06/02/19 12:03 Morning rounds conducted. Chart review performed and vital signs reviewed. Pt sleeping in the room in no acute distress. Per nursing no complaints from patient. Still awaiting placement. Will reassess patient upon her waking up.
--- NOTE | 2019-06-03 11:36 | ER Document Report ---
Doctor's Note Notes: 06/03/19 11:35 As the rounding provider this AM, I assessed the patient's labs, vitals, and records. No concerning findings this morning. Patient denies any acute complaints. Per discharge planning note yesterday awaiting daughter to arrive in town so they can make a decision on disposition for facility. I will follow-up with the planner later today.
[2019-06-03] MEDS ORDERED: TRAMADOL HCL 50 MG TABLET PO PRN (14:04)
[2019-06-03] MEDS ORDERED: TUBERCULIN,PURIF.PROT.DERIV. 5 TU/0.1 ML TEST 1 ML VIAL ID ONE ×2 (16:32→18:00)
--- NOTE | 2019-06-03 17:19 | RADIOLOGY REPORT (SQ) ---
EXAM DESCRIPTION: CHEST 2 VIEWS COMPLETED DATE/TIME: 06/03/2019 4:58 pm REASON FOR STUDY: Rule out active tuberculosis COMPARISON: 05/31/2019 TECHNIQUE: Frontal and lateral radiographic views of the chest acquired. NUMBER OF VIEWS: Two view. LIMITATIONS: None. FINDINGS: LUNGS AND PLEURA: No pneumothorax. No consolidation or pleural effusion. MEDIASTINUM AND HILAR STRUCTURES: Stable. HEART AND VASCULAR STRUCTURES: Stable. BONES: No acute findings. HARDWARE: None in the chest. OTHER: No other significant finding. IMPRESSION: NO ACUTE FINDINGS. TECHNICAL DOCUMENTATION: JOB ID: [id number] [id number] 2010 [employer]- All Rights Reserved Reading location - IP/workstation name: [email or web address]
[2019-06-04] MEDS: PANTOPRAZOLE SODIUM 40 MG TABLET.DR PO SCH (06:08)
[2019-06-04] MEDS ORDERED: (PENDING PHARMACY ID) (Fenofibrate [Fenofibrate] 160 MG) PO SCH (10:00)
[2019-06-04] MEDS ORDERED: (PENDING PHARMACY ID) (Potassium Chloride [Klor-Con M10] 10 MEQ) PO SCH (10:00)
[2019-06-04] MEDS: FENOFIBRATE NANOCRYSTALLIZED 145 MG TABLET PO SCH (10:11)
[2019-06-04] MEDS: POTASSIUM CHLORIDE 10 MEQ CAPSULE.ER PO SCH (10:11)
[2019-06-04] MEDS ORDERED: OFLOXACIN 0.3% OTIC DROPS 5 ML OT ONE (11:35)
--- NOTE | 2019-06-04 11:40 | ER Document Report ---
Doctor's Note Notes: 06/04/19 11:37 Patient's vital signs and previous labs, diagnostic images reviewed. Reviewed mental health notes, nurse's notes and previous providers notes. VSS. Pt is in no distress at this time. Denies any SI or HI. General: A&Ox3. Answers questions appropriately. ENT: Right EAC with erythema in canal, no exudates, TM intact without erythema induration nares patent, oropharynx clear without exudates. Moist mucous membranes. NECK: Normal range of motion, supple without lymphadenopathy ENT: Heart: RRR Lungs: CTAB Psych: Flat affect A/P: Continue monitoring and rec's per MH. Will start on antibiotic drops as directed for acute otitis externa on right Normal diet Consider placement.
[2019-06-04] MEDS: CIPROFLOXACIN HCL/DEXAMETH OTIC DROP 7.5 ML AD SCH ×2 (12:27→18:32)
[2019-06-05] MEDS: PANTOPRAZOLE SODIUM 40 MG TABLET.DR PO SCH (07:20)
[2019-06-05] MEDS: CIPROFLOXACIN HCL/DEXAMETH OTIC DROP 7.5 ML AD SCH ×2 (09:43→17:13)
[2019-06-05] MEDS: POTASSIUM CHLORIDE 10 MEQ CAPSULE.ER PO SCH (09:44)
[2019-06-05] MEDS: FENOFIBRATE NANOCRYSTALLIZED 145 MG TABLET PO SCH (10:13)
--- NOTE | 2019-06-05 13:23 | ER Document Report ---
Doctor's Note Notes: 06/05/19 13:22 Chart reviewed, patient reevaluated, patient is alert, oriented, answering all questions appropriately. Patient reports she is ready to go home. Patient has no medical complaints. Physical exam as dictated below. Patient is currently here in a social hold, social studies department chair attempting to get patient home health services ordered, that may happen today and patient may be discharged home. PHYSICAL EXAMINATION: GENERAL: Well-appearing and in no acute distress. HEAD: Atraumatic, normocephalic. EYES: Pupils equal round and reactive to light, extraocular movements intact, conjunctiva are mildly erythematous. ENT: Nares patent, oropharynx clear without exudates. Moist mucous membranes. NECK: Normal range of motion, supple without lymphadenopathy LUNGS: Breath sounds clear to auscultation bilaterally and equal. No wheezes rales or rhonchi. HEART: Regular rate and rhythm without murmurs ABDOMEN: Soft, nontender, nondistended abdomen. No guarding, no rebound. No masses appreciated. Female : No CVA tenderness Musculoskeletal: Normal range of motion, no pitting or edema. No cyanosis. NEUROLOGICAL: Cranial nerves grossly intact. Normal speech, Normal sensory, motor exams PSYCH: Normal mood, normal affect. SKIN: Warm, Dry, normal turgor, no rashes or lesions noted. Dry skin noted to lips.
[2019-06-06 06:24] VITALS: BP 105/61
[2019-06-06] MEDS: PANTOPRAZOLE SODIUM 40 MG TABLET.DR PO SCH (07:43)
== END 2019-06-06 08:11 | disposition other institution (70) ==
LOC: ER 18:27
DX: M62.81 Muscle weakness (generalized) (principal); E87.1 Hypo-osmolality and hyponatremia; R63.0 Anorexia; E87.6 Hypokalemia; Z85.22 Personal history of malignant neoplasm of nasal cavities, middle ear, and accessory sinuses; Z98.890 Other specified postprocedural states; Z87.891 Personal history of nicotine dependence; I25.2 Old myocardial infarction
CPT/HCPCS: 99285; 96360; 96361; 36415; 83735; 85025; 80053; 81001; 84484; 71046; G0008 ×2; A9270 ×6; J3490; J7030; 90471

== ENCOUNTER 2019-06-19 20:05 | Emergency (ER) | payer MEDICARE, OTHER ==
--- NOTE | 2019-06-19 22:07 | ER Document Report ---
ED General - General Chief Complaint: Fall Injury Stated Complaint: FALL/BACK PAIN Time Seen by Provider: 06/19/19 20:45 Primary Care Provider: ZARA NOBLE MD [Primary Care Provider] - Follow up as needed TRAVEL OUTSIDE OF THE [place] IN LAST 30 DAYS: No - HPI Notes: Patient is an 83-year-old female, currently staying in an assisted living facility, who presents to the emergency department for evaluation after a fall. She was getting out of bed, using her wheelchair as assistance. The wheelchair was not locked, she fell down onto her backside. She states she hit her back against the bed rails. She denies hitting her head. No loss of consciousness. She denies any neck pain. She keeps telling me that her "kidneys" hurt. She has chronic pain in her left knee which she states feels somewhat worse. She further states that she has developed swelling in her left leg, increasingly so over the last several days. She denies any chest pain or shortness of breath. - Related Data Allergies/Adverse Reactions: egg Allergy (Intermediate, Verified 06/03/19 22:52) nut - unspecified Allergy (Verified 06/03/19 22:52) Milk Containing Products Adverse Reaction (Severe, Verified 06/03/19 22:51) Past Medical History - General Information source: Patient, [facility] Records, Outside Facility Records - Social History Smoking Status: Never Smoker Family History: Reviewed & Not Pertinent Patient has suicidal ideation: No Patient has homicidal ideation: No - Past Medical History Cardiac Medical History: Reports: Hx Heart Attack - pt states very mild attack, Hx Hypercholesterolemia, Hx Hypertension Denies: Hx Atrial Fibrillation, Hx Congestive Heart Failure, Hx Coronary Artery Disease, Hx Peripheral Vascular Disease, Hx Heart Murmur Pulmonary Medical History: Denies: Hx Asthma, Hx Bronchitis, Hx COPD, Hx Sleep Apnea, Hx Tuberculosis Neurological Medical History: Denies: Hx Cerebrovascular Accident, Hx Seizures Endocrine Medical History: Denies: Hx Hyperthyroidism, Hx Hypothyroidism Renal/ Medical History: Denies: Hx Kidney Stones, Hx Ovarian Cysts, Hx Peritoneal Dialysis, Hx Pelvic Inflammatory Disease Malignancy Medical History: Reports: Hx Cervical Cancer, Hx Colorectal Cancer, Hx Skin Cancer. Denies: Hx Breast Cancer, Hx Leukemia, Hx Lung Cancer, Hx Ovari an Cancer GI Medical History: Reports: Hx Gastroesophageal Reflux Disease. Denies: Hx Crohn's Disease, Hx Hiatal Hernia, Hx Irritable Bowel, Hx Liver Failure, Hx Pancreatitis, Hx Ulcer Musculoskeletal Medical History: Reports Hx Arthritis - knees, Denies Hx Fibromyalgia, Denies Hx Muscular Dystrophy Psychiatric Medical History: Denies: Hx Bipolar Disorder, Hx Depression, Hx Post Traumatic Stress Disorder Traumatic Medical History: Denies: Hx Fractures Infectious Medical History: Denies: Hx HIV Past Surgical History: Reports: Hx Appendectomy, Hx Bowel Surgery - Apr 2011 Bowel Resection, Hx Cholecystectomy, Hx Hysterectomy, Other - Parotid tumor resection, partial colectomy. Denies: Hx Section, Hx Colostomy, Hx Coronary Artery Bypass Graft, Hx Gastric Bypass Surgery, Hx Herniorrhaphy, Hx Mastectomy, Hx Pacemaker, Hx Tonsillectomy, Hx Tubal Ligation - Immunizations Hx Diphtheria, Pertussis, Tetanus Vaccination: No Hx Pneumococcal Vaccination: 04/23/18 Review of Systems - Review of Systems Constitutional: No symptoms reported EENT: No symptoms reported Cardiovascular: No symptoms reported Respiratory: No symptoms reported Gastrointestinal: No symptoms reported Genitourinary: No symptoms reported Musculoskeletal: See HPI Skin: No symptoms reported Neurological/Psychological: No symptoms reported Physical Exam - Vital signs Vitals: Temp Resp BP Pulse Ox 98.4 F 18 107/64 100 06/19/19 20:09 06/19/19 20:09 06/19/19 20:09 06/19/19 20:09 - Notes Notes: This is an 83-year-old female who appears her stated age, frail, but no acute distress. Head is normocephalic. She has facial changes consistent with history of facial radiation and parotid tumor resection. Oral mucosa is moist. Heart is regular rate and rhythm, lungs are clear to station bilaterally. Chest wall is nontender. Examination of the spine is no midline tenderness. She has some paraspinal musculature tenderness noted to the lumbar spine on the right. No paraspinal musculature tenderness noted throughout the cervical spine, no pain with range of motion or axial loading. Abdomen is soft, nontender, normoactive bowel sounds. No significant pain on palpation of the greater trochanters bilaterally. Passive range of motion, including internal and external rotation of the hips bilaterally, yields no significant pain. Neurovascularly intact distally. She does have 2+ pitting edema to the pretibial region on the left with some posterior calf tenderness noted. Neurovascularly intact distally. Course - Re-evaluation Re-evalutation: 06/19/19 22:12 Patient presents emergency department for evaluation. She is had a prolonged history of immobility recently after being diagnosed with failure to thrive, going from the hospital to [facility], now to an assisted living facility. Doppler of left lower extremity was ordered, and found to be positive. At that point blood work was ordered. Awaiting radiology read from the remainder of imaging. We will continue to monitor. 06/20/19 00:15 Patient's imaging revealed a right UVJ stone, which upon evaluating is not new. Her lumbar spine films otherwise showed nothing acute else acute. Doppler was positive for left lower extremity DVT. The patient has been increasingly immobile, so this is not unexpected. Her potassium was found to be low as well. This was replaced orally, and her magnesium was low normal, but still within normal notes. We discussed options at this time. The patient states she does not want to stay in the hospital. I explained her that she ought to increase her potassium intake and follow-up with primary care next week. She needs to start on Xarelto. The increased risk associated with Xarelto, including increased bleeding, risk of significant injury with fall, was explained in great detail. The patient voiced understanding. I will send her home with a prescription for the Xarelto, as well as an outpatient order to have her basic metabolic panel checked on Monday. - Vital Signs Vital signs: Temp Pulse Resp BP Pulse Ox 98.4 F 20 116/72 100 06/19/19 20:09 06/19/19 21:00 06/19/19 21:00 06/19/19 21:00 - Laboratory Result Diagrams: 06/19/19 22:53 06/19/19 22:25 Laboratory results interpreted by me: 06/19/19 06/19/19 22:25 22:53 RBC 3.30 L Hgb 8.7 L Hct 26.5 L MCH 26.4 L RDW 17.7 H Potassium 2.8 L* Chloride 108 H Total Protein 5.7 L Albumin 2.8 L - Diagnostic Test Radiology reviewed: Image reviewed, Reports reviewed Discharge - Discharge Clinical Impression: Hypokalemia, Left leg DVT, Hydronephrosis concurrent with and due to calculi of kidney and ureter Condition: Stable Disposition: HOME, SELF-CARE Instructions: Contusion ([facility]), DVT Outpatient Treatment ([facility]), Hypokalemia ([facility]) Additional Instructions: You have elected to be discharged home on blood thinners and potassium supplementation. Please note that you have an increased risk of significant bleeding on blood thinners. Take extra precautions to avoid falling. Any head injury should prompt an immediate evaluation. Take potassium as directed and have your metabolic panel rechecked on Monday. There is a lab slip here for this to be done. Follow-up with primary care on Monday as well. Return to the ED with worsening or new concerning symptoms of any sort. Forms: Follow-Up Laboratory Testing Referrals: ZARA NOBLE MD [Primary Care Provider] - Follow up as needed
--- NOTE | 2019-06-19 22:14 | RADIOLOGY REPORT (SQ) ---
EXAM DESCRIPTION: US EXTREMITY VEINS UNILATERAL COMPLETED DATE/TME: 06/19/2019 20:55 CLINICAL HISTORY: 83 years, Female, pain left leg / Hx clots COMPARISON: None. TECHNIQUE: Transverse longitudinal sonographic images of the left lower extremity deep venous system LIMITATIONS: None. FINDINGS: Findings positive for thrombus formation in the common and superficial femoral veins with lack of normal compressibility and augmentation. Decreased luminal diameter and surface irregularity may reflect chronic change. No other evidence for DVT. Doppler images are otherwise normal IMPRESSION: Findings positive for DVT, as above. Findings may be chronic, however correlate with any prior exams recommended.. copyright 2010 [employer]- All Rights Reserved
--- NOTE | 2019-06-19 22:25 | RADIOLOGY REPORT (SQ) ---
EXAM DESCRIPTION: XR PELVIS 1-2 VIEWS COMPLETED DATE/TME: 06/19/2019 20:54 CLINICAL HISTORY: 83 years, Female, pain, fall COMPARISON: None. NUMBER OF VIEWS: 1 TECHNIQUE: AP pelvis LIMITATIONS: None. FINDINGS: Osteopenia. No radiographic evidence for acute fracture or dislocation. Mild degenerative change of the hips bilaterally. IMPRESSION: No acute osseous abnormality copyright 2010 [employer]- All Rights Reserved
--- NOTE | 2019-06-19 22:35 | RADIOLOGY REPORT (SQ) ---
EXAM DESCRIPTION: XR KNEE 3 VIEWS COMPLETED DATE/TME: 06/19/2019 20:55 CLINICAL HISTORY: 83 years, Female, fall COMPARISON: None. NUMBER OF VIEWS: TECHNIQUE: LIMITATIONS: None. FINDINGS: IMPRESSION: copyright 2011 [employer]- All Rights Reserved EXAM DESCRIPTION: EXAM DESCRIPTION: CLINICAL HISTORY: fall COMPARISON: None FINDINGS: 3 view(s) submitted. There are degenerative changes with marked femorotibial joint space narrowing medially. No fracture or dislocation is identified. Bone marrow attenuation is unremarkable. No radiopaque foreign body is identified. IMPRESSION: No acute fracture or dislocation.
--- NOTE | 2019-06-19 22:44 | RADIOLOGY REPORT (SQ) ---
EXAM DESCRIPTION: CT LUMBAR SPINE WITHOUT IV CONTRAST COMPLETED DATE/TME: 06/19/2019 20:57 CLINICAL HISTORY: 83 years, Female, fall, pain COMPARISON: None. TECHNIQUE: Images stored on PACS. All CT scanners at this facility use dose modulation, iterative reconstruction, and/or weight based dosing when appropriate to reduce radiation dose to as low as reasonably achievable (ALARA). [facility]: Dose Right [facility]: CareDose [facility]: Dose Right [facility]: Teradose 4D [facility]: [employer] LIMITATIONS: None. EXAM DESCRIPTION: CLINICAL HISTORY: fall, pain COMPARISON: None Available. TECHNIQUE: Contiguous axial images of lumbar spine were obtained followed by reconstruction images. All CT scanners at this facility use dose modulation, iterative reconstruction, and/or weight based dosing when appropriate to reduce radiation dose to as low as reasonably achievable (ALARA). FINDINGS: A large calcified lesion of the right kidney is incompletely evaluated. There is marked right hydronephrosis with enlargement of the right ureter to the right UVJ, where there is a nine mm stone. There is right renal scarring. There are bony degenerative changes. There is moderate loss of height of the L3 vertebral body that is likely chronic but an acute component is not excluded. No retropulsed bone fragment is seen. There vascular calcifications. There is moderate loss of height of the L4-5 disc. No spondylolysis. There is grade 1 retrolisthesis of L1 on L2. No fracture is seen. IMPRESSION: Obstructive right UVJ stone. Degenerative changes. No fracture. No other acute abnormalities.
[2019-06-19 22:48] LABS: INTERNATIONAL RATION (INR) 1.14; PROTHROMBIN TIME 14.7 SEC (11.4-15.4)
[2019-06-19 22:57] LABS: ALBUMIN 2.8 g/dL (3.5-5.0); ALKALINE PHOSPHATASE 38 U/L (38-126); ANION GAP 7 (5-19); ASPARTATE AMINO TRANSFERASE 26 U/L (14-36); BILIRUBIN,DIRECT 0.2 mg/dL (0.0-0.4); BILIRUBIN,TOTAL 0.4 mg/dL (0.2-1.3); BLOOD UREA NITROGEN 13 mg/dL (7-20); CALCIUM 9.1 mg/dL (8.4-10.2); CARBON DIOXIDE 25 mmol/L (22-30); CHLORIDE 108 mmol/L (98-107); GLUCOSE 90 mg/dL (75-110); TOTAL PROTEIN 5.7 g/dL (6.3-8.2)
[2019-06-19 23:02] LABS: ABSOLUTE BASOPHILS # (AUTO) 0.1 10^3/uL (0.0-0.2); ABSOLUTE EOSINOPHILS # (AUTO) 0.2 10^3/uL (0.0-0.6); ABSOLUTE LYMPHOCYTES (AUTO) 0.8 10^3/uL (0.5-4.7); ABSOLUTE MONOCYTES (AUTO) 0.4 10^3/uL (0.1-1.4); ABSOLUTE NEUT (AUTO) 3.5 10^3/uL (1.7-8.2); BASOPHILS % (AUTO) 1.8 % (0-2); EOSINOPHILS % (AUTO) 3.7 % (0-6); HEMATOCRIT 26.5 % (36.0-47.0); HEMOGLOBIN 8.7 g/dL (12.0-15.5); LYMPHOCYTES % (AUTO) 15.5 % (13-45); MEAN CORPUSCULAR HEMOGLOBIN 26.4 pg (27.0-33.4); MEAN CORPUSCULAR HGB CONC 32.9 g/dL (32.0-36.0); MONOCYTES % (AUTO) 7.6 % (3-13); PLATELET COUNT 310 10^3/uL (150-450); RED CELL DISTRIBUTION WIDTH 17.7 % (11.5-14.0); SEGMENTED NEUTROPHILS % (AUTO) 71.4 % (42-78); TOTAL CELLS COUNTED % (AUTO) 100 %; WHITE BLOOD COUNT 4.9 10^3/uL (4.0-10.5)
[2019-06-19 23:04] LABS: POTASSIUM 2.8 mmol/L (3.6-5.0)
[2019-06-19 23:08] LABS: MEAN CORPUSCULAR VOLUME 81 fl (80-97)
[2019-06-19] MEDS ORDERED: RIVAROXABAN 15 MG TABLET PO ONE (23:59)
[2019-06-19] MEDS ORDERED: POTASSIUM CHLORIDE 10 MEQ CAPSULE.ER PO ONE (23:59)
[2019-06-20] MEDS ORDERED: RIVAROXABAN 15 MG TABLET ONE (01:03)
[2019-06-20 02:26] VITALS: BP 133/75
== END 2019-06-20 02:26 | disposition home or self-care (01) ==
LOC: ER 20:05
DX: I82.412 Acute embolism and thrombosis of left femoral vein (principal); E87.6 Hypokalemia; N13.2 Hydronephrosis with renal and ureteral calculous obstruction; M54.9 Dorsalgia, unspecified; W06.XXXA Fall from bed, initial encounter; W22.03XA Walked into furniture, initial encounter; Y93.89 Activity, other specified; Y92.193 Bedroom in other specified residential institution as the place of occurrence of the external cause; M25.562 Pain in left knee; G89.29 Other chronic pain; I10 Essential (primary) hypertension; Z91.012 Allergy to eggs; Z91.018 Allergy to other foods
CPT/HCPCS: 99284; 36415; 83735; 85025; 85610; 80053; 93971; 73562; 72170; 72131; A9270 ×2

== ENCOUNTER → 2019-06-24 | Outpatient (CLI) | payer MEDICARE, OTHER ==
[2019-06-24 14:50] LABS: ANION GAP 7 (5-19); BLOOD UREA NITROGEN 19 mg/dL (7-20); CALCIUM 9.6 mg/dL (8.4-10.2); CARBON DIOXIDE 28 mmol/L (22-30); CHLORIDE 104 mmol/L (98-107); GLUCOSE 98 mg/dL (75-110); POTASSIUM 3.6 mmol/L (3.6-5.0)
== END ==
LOC: OD 13:16
PROVIDERS: ATTEND Emergency Medicine
DX: E87.6 Hypokalemia (principal)
CPT/HCPCS: 36415; 80048

== ENCOUNTER 2019-07-04 11:07 | Inpatient (IN) | payer MEDICARE, OTHER ==
[2019-07-04 13:05] LABS: ABSOLUTE BASOPHILS # (AUTO) 0.1 10^3/uL (0.0-0.2); ABSOLUTE EOSINOPHILS # (AUTO) 0.1 10^3/uL (0.0-0.6); ABSOLUTE LYMPHOCYTES (AUTO) 0.7 10^3/uL (0.5-4.7); ABSOLUTE MONOCYTES (AUTO) 0.2 10^3/uL (0.1-1.4); ABSOLUTE NEUT (AUTO) 2.4 10^3/uL (1.7-8.2); BASOPHILS % (AUTO) 1.7 % (0-2); EOSINOPHILS % (AUTO) 2.6 % (0-6); HEMATOCRIT 17.8 % (36.0-47.0); LYMPHOCYTES % (AUTO) 20.5 % (13-45); MEAN CORPUSCULAR HGB CONC 32.6 g/dL (32.0-36.0); MEAN CORPUSCULAR VOLUME 83 fl (80-97); MONOCYTES % (AUTO) 6.7 % (3-13); PLATELET COUNT 395 10^3/uL (150-450); RED BLOOD COUNT 2.14 10^6/uL (3.72-5.28); SEGMENTED NEUTROPHILS % (AUTO) 68.5 % (42-78); TOTAL CELLS COUNTED % (AUTO) 100 %; WHITE BLOOD COUNT 3.4 10^3/uL (4.0-10.5)
[2019-07-04 13:10] LABS: ALBUMIN 2.8 g/dL (3.5-5.0); ALKALINE PHOSPHATASE 48 U/L (38-126); ANION GAP 7 (5-19); ASPARTATE AMINO TRANSFERASE 24 U/L (14-36); BILIRUBIN,DIRECT 0.2 mg/dL (0.0-0.4); BILIRUBIN,TOTAL 0.2 mg/dL (0.2-1.3); BLOOD UREA NITROGEN 21 mg/dL (7-20); CALCIUM 9.4 mg/dL (8.4-10.2); CARBON DIOXIDE 24 mmol/L (22-30); CHLORIDE 109 mmol/L (98-107); CREATINE KINASE 30 U/L (30-135); GLUCOSE 88 mg/dL (75-110); HEMOGLOBIN 5.8 g/dL (12.0-15.5); POTASSIUM 3.5 mmol/L (3.6-5.0); TOTAL PROTEIN 5.4 g/dL (6.3-8.2)
--- NOTE | 2019-07-04 13:12 | ER Document Report ---
Entered by STACIE MACDONALD SCRIBE 07/04/19 [id number] Acting as scribe for:ADY PAT MD ED General - General Chief Complaint: Feet Swelling Stated Complaint: BILATERAL FEET SWELLING Time Seen by Provider: 07/04/19 12:36 Primary Care Provider: ZARA NOBLE MD [Primary Care Provider] - Follow up as needed Mode of Arrival: Medic Information source: Patient Notes: This 83 year old female patient presents to the ED today with complaints of bilateral ankle and feet swelling for the past x3 months. Patient reports that she uses a wheelchair at home and also walks around a lot. Patient was seen x2 weeks ago and had a positive doppler for DVT in her LLE, currently taking xarelto. Patient does not report any other symptoms. TRAVEL OUTSIDE OF THE [place] IN LAST 30 DAYS: No - Related Data Allergies/Adverse Reactions: egg Allergy (Intermediate, Verified 07/04/19 12:39) nut - unspecified Allergy (Verified 07/04/19 12:39) Milk Containing Products Adverse Reaction (Severe, Verified 07/04/19 12:39) Home Medications: Pantoprazole. Xarelto Past Medical History - General Information source: Patient, [facility] Records - Social History Smoking Status: Unknown if Ever Smoked Cigarette use (# per day): No Family History: Reviewed & Not Pertinent Patient has suicidal ideation: No Patient has homicidal ideation: No - Medical History Medical History: Other - Patient was taking Hydrochlorothiazide, but currently does not - Past Medical History Cardiac Medical History: Reports: Hx DVT - LLE, Hx Heart Attack - pt states very mild attack, Hx Hypercholesterolemia, Hx Hypertension Malignancy Medical History: Reports: Hx Cervical Cancer, Hx Colorectal Cancer, Hx Skin Cancer GI Medical History: Reports: Hx Gastroesophageal Reflux Disease Musculoskeletal Medical History: Reports Hx Arthritis - knees Past Surgical History: Reports: Hx Appendectomy, Hx Bowel Surgery - Apr 2011 Bowel Resection, Hx Cholecystectomy, Hx Hysterectomy, Other - Parotid tumor resection, partial colectomy - Immunizations Hx Diphtheria, Pertussis, Tetanus Vaccination: No Hx Pneumococcal Vaccination: 04/23/18 Review of Systems - Review of Systems Constitutional: No symptoms reported EENT: No symptoms reported Cardiovascular: No symptoms reported Respiratory: No symptoms reported Gastrointestinal: No symptoms reported Genitourinary: No symptoms reported Female Genitourinary: No symptoms reported Musculoskeletal: See HPI, Ankle swelling - bilateral, Other - bilateral feet s welling Skin: No symptoms reported Hematologic/Lymphatic: No symptoms reported Neurological/Psychological: No symptoms reported -: Yes All other systems reviewed and negative Physical Exam - Vital signs Vitals: Temp Pulse Resp BP Pulse Ox 97.9 F 85 14 91/39 L 100 07/04/19 11:17 07/04/19 11:17 07/04/19 11:17 07/04/19 11:17 07/04/19 11:17 Interpretation: Normal - General General appearance: Appears well, Alert In distress: None - HEENT Head: Normocephalic, Atraumatic Eyes: Pale conjunctiva Pupils: PERRL - Respiratory Respiratory status: No respiratory distress Chest status: Nontender Breath sounds: Normal Chest palpation: Normal - Cardiovascular Rhythm: Regular Heart sounds: Normal auscultation Murmur: No - Abdominal Inspection: Normal Distension: No distension Bowel sounds: Normal Tenderness: Nontender - abdomen soft Organomegaly: No organomegaly - Back Back: Normal, Nontender - Extremities General upper extremity: Normal inspection General lower extremity: Edema - right leg is not edematous, left leg is edematous Hand: Other - pale nail beds Ankle: Edema - soft pitting edema in right ankle, more edematous in left ankle Foot: Edema - soft pitting edema in right foot, more edematous in left foot - Neurological Neuro grossly intact: Yes Orientation: AAOx4 - Psychological Associated symptoms: Normal affect, Normal mood - Skin Skin Temperature: Warm Skin Moisture: Dry Skin Color: Pale Course - Vital Signs Vital signs: Temp Pulse Resp BP Pulse Ox 97.4 F 85 23 H 116/52 L 100 07/04/19 15:15 07/04/19 11:17 07/04/19 15:01 07/04/19 15:01 07/04/19 15:01 - Laboratory Result Diagrams: 07/04/19 12:22 07/04/19 12:22 Laboratory results interpreted by me: 07/04/19 07/04/19 07/04/19 12:22 12:22 13:18 WBC 3.4 L RBC 2.14 L Hgb 5.8 L Hct 17.8 L RDW 19.0 H Potassium 3.5 L Chloride 109 H BUN 21 H Total Protein 5.4 L Albumin 2.8 L Ur Leukocyte Esterase Crossmatch See Detail 07/04/19 14:06 WBC RBC Hgb Hct RDW Potassium Chloride BUN Total Protein Albumin Ur Leukocyte Esterase MODERATE H Crossmatch - Diagnostic Test Radiology reviewed: Image reviewed, Reports reviewed - Chest x-ray does not show any acute changes. - EKG Interpretation by Me EKG shows normal: Sinus rhythm, [place], Intervals, QRS Complexes, ST-T Waves Rate: Normal - 77 Rhythm: NSR - Consults Dr. Sahni Time consulted: 15:30 Consulted provider: will come to ER Critical Care Note - Critical Care Note Total time excluding time spent on procedures (mins): 35 Discharge - Discharge Clinical Impression: Anemia, Hypoalbuminemia due to protein-calorie malnutrition, Hypoproteinemia, Peripheral edema, Heme positive stool Malnutrition Qualifiers: Malnutrition type: unspecified type Qualified Code(s): E46 - Unspecified protein-calorie malnutrition Left leg DVT Qualifiers: Affected thrombotic vein of extremity: other lower extremity vein Chronicity: unspecified Qualified Code(s): I82.492 - Acute embolism and thrombosis of other specified deep vein of left lower extremity Condition: Stable Disposition: ADMITTED INPATIENT Admitting Provider: Bora (Hospitalist) Unit Admitted: Telemetry Referrals: ZARA NOBLE MD [Primary Care Provider] - Follow up as needed Scribe Attestation: 07/04/19 15:36 I personally performed the services described in the documentation, reviewed and edited the documentation which was dictated to the scribe in my presence, and it accurately records my words and actions. I personally performed the services described in the documentation, reviewed and edited the documentation which was dictated to the scribe in my presence, and it accurately records my words and actions.
[2019-07-04] MEDS: NORMAL SALINE 250 ML IV PRN ×2 (13:45→15:50)
--- NOTE | 2019-07-04 13:50 | RADIOLOGY REPORT (SQ) ---
EXAM DESCRIPTION: CHEST SINGLE VIEW COMPLETED DATE/TIME: 07/04/2019 1:42 pm REASON FOR STUDY: Lower extremity edema COMPARISON: 06/03/2019 EXAM PARAMETERS: NUMBER OF VIEWS: One view. TECHNIQUE: Single frontal radiographic view of the chest acquired. RADIATION DOSE: NA LIMITATIONS: None. FINDINGS: LUNGS AND PLEURA: No opacities, masses or pneumothorax. No pleural effusion. MEDIASTINUM AND HILAR STRUCTURES: No masses. Contour normal. HEART AND VASCULAR STRUCTURES: Heart normal in size. Normal vasculature. BONES: No acute findings. HARDWARE: None in the chest. OTHER: No other significant finding. IMPRESSION: NO ACUTE RADIOGRAPHIC FINDING IN THE CHEST. TECHNICAL DOCUMENTATION: JOB ID: [id number] [employer]- All Rights Reserved Reading location - IP/workstation name: [email or web address]
[2019-07-04 14:29] LABS: APPEARANCE,URINE SLIGHTLY-CLOUDY; BILIRUBIN,URINE NEGATIVE (NEGATIVE); COLOR,URINE YELLOW; GLUCOSE, URINE NEGATIVE (NEGATIVE); KETONES,URINE NEGATIVE (NEGATIVE); LEUKOCYTE ESTERASE,URINE MODERATE (NEGATIVE); NITRITE,URINE NEGATIVE (NEGATIVE); PROTEIN,URINE NEGATIVE (NEGATIVE); URINE SPECIFIC GRAVITY 1.011; UROBILINOGEN,URINE NEGATIVE mg/dL (<2.0)
[2019-07-04] MEDS ORDERED: PANTOPRAZOLE SODIUM 40 MG VIAL IV ONE (15:36)
--- NOTE | 2019-07-04 17:01 | EKG REPORT ---
SEVERITY:- NORMAL ECG - SINUS RHYTHM : Confirmed by: Porfirio Nation MD 04-Jul-2019 17:01:18
[2019-07-04] MEDS ORDERED: METOCLOPRAMIDE HCL 10 MG TABLET PO PRN (18:40)
[2019-07-04] MEDS ORDERED: (PENDING PHARMACY ID) (Ondansetron Hcl [Zofran 4 Mg Tablet] 4 MG) PO PRN (18:40)
[2019-07-04] MEDS ORDERED: MORPHINE SULFATE 10 MG/ML INJ IV ONE (18:42)
[2019-07-04] MEDS ORDERED: ONDANSETRON 4 MG TAB.RAPDIS PO PRN (19:12)
[2019-07-04] MEDS ORDERED: MORPHINE SULFATE 10 MG/ML INJ IV PRN (20:03)
[2019-07-04] MEDS ORDERED: TRAMADOL HCL 50 MG TABLET PO PRN (20:03)
[2019-07-04] MEDS ORDERED: MAG HYDROX/AL HYDROX/SIMETH SUSP 30 ML UDCUP PO PRN (20:06)
[2019-07-04] MEDS ORDERED: MAGNESIUM HYDROXIDE SUSP 30 ML UDCUP PO PRN (20:06)
--- NOTE | 2019-07-04 20:41 | PDOC H&P ---
History of Present Illness Admission Date/PCP: 07/04/19 15:55 ZARA NOBLE MD Patient complains of: Weakness History of Present Illness: RAQUEL BARRIOS is a 83 year old female who was hospitalized in March. She has multiple comorbidities. She was recently evaluated in the emergency department after a fall. She was found to have a deep venous thrombosis in her left leg and started on Xarelto. She was having progressive weakness and presented to the emergency department with her daughter. Evaluation revealed occult blood positive stool and a hemoglobin of 5.8. 2 units of packed red blood cells were administered in the emergency department. She does have a history of ureteral stones in her urine did have white cells. She gets recurrent urinary tract infections and is currently working with urology to assess for possible treatment such as lithotripsy. She was referred to the hospitalist service for admission. 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 Neurological Medical History: Denies: Seizures Endocrine Medical History: Denies: Hyperthyroidism, Hypothyroidism Malignancy Medical History: Reports: Cervical Cancer, Colorectal Cancer, Skin Cancer Denies: Breast Cancer, Leukemia, Lung Cancer, Ovarian Cancer GI Medical History: Reports: Gastroesophageal Reflux Disease Denies: Crohn's Disease, Hiatal Hernia Musculoskeltal Medical History: Reports: Arthritis - knees Denies: Fibromyalgia Skin Medical History: Denies: Eczema, Psoriasis Psychiatric Medical History: Denies: Alcohol Dependency, Bipolar Disorder, Depression, Post Traumatic Stress Disorder, Substance Abuse, Tobacco Dependency Traumatic Medical History: Reports: None Hematology: Reports: Anemia - takes iron Denies: Hemophilia, Sickle Cell Disease Infectious Medical History: Denies: HIV Past Surgical History Past Surgical History: Reports: Appendectomy, Cholecystectomy, Hysterectomy, Other - Parotid tumor resection, partial colectomy Denies: Amputation, Section, Colostomy, Coronary Artery Bypass Graft, Gastric Bypass Surgery, Herniorrhaphy, Mastectomy, Pacemaker, Tonsillectomy, Tubal Ligation Social History Information Source: Patient, Relative, [facility] Records Lives with: Other - She has had [facility] assisted [facility]. Smoking Status: Unknown if Ever Smoked Electronic Cigarette use?: No Frequency of Alcohol Use: None Hx Recreational Drug Use: No Hx Prescription Drug Abuse: No - Advance Directive Resuscitation Status: Do Not Resuscitate Surrogate healthcare decision maker:: The patient's daughter is the surrogate decision-maker Family History Parental Family History Reviewed: Yes Children Family History Reviewed: Yes Sibling(s) Family History Reviewed.: No Medication/Allergy Home Medications: Fenofibrate 160 mg PO DAILY 06/01/19 Pantoprazole Sodium [Protonix [address] Tablet] 40 mg PO DAILY 06/01/19 Dronabinol [Marinol 2.5 mg Capsule] 2.5 mg PO BID 06/04/19 Ferrous Sulfate [Slow Fe] 142 mg PO BID 06/04/19 Fluticasone Propionate [Flonase Nasal Lindon 50 Mcg/Lindon 16 gm] 1 spray NAREB Q12 06/04/19 Loratadine [Claritin 10 mg Tablet] 10 mg PO DAILY 06/04/19 Metoclopramide HCl [Reglan 10 mg Tablet] 10 mg PO Q6HP PRN 06/04/19 Mirtazapine 7.5 mg PO QHS 06/04/19 Multivit-Min/Iron/Folic/Lutein [Centrum Silver Women Tablet] 1 each PO DAILY 06/04/19 Ondansetron HCl [Zofran 4 mg Tablet] 4 mg PO Q8HP PRN 06/04/19 Tamsulosin HCl [Flomax 0.4 mg Cap.sr] 0.4 mg PO DAILY 06/04/19 Rivaroxaban [Xarelto 15 mg Tablet] 15 mg PO BID #20 tablet 06/20/19 Potassium Chloride [K-Tab ER] 20 meq PO DAILY 07/04/19 Allergies/Adverse Reactions: egg Allergy (Intermediate, Verified 07/04/19 12:39) nut - unspecified Allergy (Verified 07/04/19 12:39) Milk Containing Products Adverse Reaction (Severe, Verified 07/04/19 12:39) Review of Systems Constitutional: PRESENT: anorexia - Although appetite has been improving, fatigue, weakness. ABSENT: weight gain, weight loss Eyes: ABSENT: visual disturbances Ears: ABSENT: hearing changes Nose, Mouth, and Throat: ABSENT: mouth pain, sore throat Cardiovascular: PRESENT: edema - Left leg. ABSENT: chest pain, orthropnea, palpitations Respiratory: ABSENT: cough, dyspnea, hemoptysis Gastrointestinal: PRESENT: constipation. ABSENT: abdominal pain, coffee ground emesis, diarrhea, hematemesis, nausea, vomiting Genitourinary: ABSENT: difficulty urinating, dysuria Musculoskeletal: ABSENT: deformity Integumentary: ABSENT: diaphoresis, erythema, lesions, wounds Neurological: PRESENT: abnormal gait - Due to weakness, paresthesias - Slight numbness in left foot and lower leg possibly due to edema. ABSENT: abnormal speech, confusion, lack of coordination, memory loss, syncope, vertigo Psychiatric: ABSENT: anxiety, depression, hallucinations Endocrine: PRESENT: cold intolerance - Feeling cold secondary to anemia. ABSENT: heat intolerance Hematologic/Lymphatic: ABSENT: easy bruising Physical Exam Vital Signs: Temp Pulse Resp BP Pulse Ox 97.9 F 73 21 H 138/72 H 100 07/04/19 19:59 07/04/19 19:59 07/04/19 19:59 07/04/19 19:59 07/04/19 19:59 Intake & Output 07/03/19 07/04/19 07/05/19 06:59 06:59 06:59 Intake Total 550 Balance 550 Weight 47.9 kg General appearance: PRESENT: no acute distress, cooperative, thin, well- developed Head exam: PRESENT: atraumatic, normocephalic Eye exam: PRESENT: conjunctiva pale, EOMI. ABSENT: scleral icterus Ear exam: PRESENT: normal external ear exam. ABSENT: bleeding, drainage Mouth exam: PRESENT: dry mucosa, neck supple, tongue midline Neck exam: PRESENT: lymphadenopathy - Submandibular nodes slightly enlarged but not tender. ABSENT: carotid bruit, tenderness, tracheostomy Respiratory exam: PRESENT: clear to auscultation therese, symmetrical, unlabored. ABSENT: accessory muscle use, rales, rhonchi, tachypnea, wheezes Cardiovascular exam: PRESENT: RRR, +S1, +S2. ABSENT: diastolic murmur, systolic murmur Pulses: PRESENT: normal radial pulses, normal dorsalis pedis pul GI/Abdominal exam: PRESENT: diminished bowel sounds, soft. ABSENT: ascites, guarding, rebound, tenderness Rectal exam: PRESENT: deferred, heme (+) stool - Per ED physician exam Gentrourinary exam: ABSENT: indwelling catheter Extremities exam: PRESENT: pedal edema - Left foot, +1 edema - Left leg Musculoskeletal exam: PRESENT: other - Decreased muscle mass. ABSENT: deformity Neurological exam: PRESENT: alert, awake, oriented to person, oriented to place, oriented to time, oriented to situation, CN II-XII grossly intact Psychiatric exam: PRESENT: appropriate affect. ABSENT: agitated, anxious Focused psych exam: ABSENT: delusional, restlessness Skin exam: PRESENT: dry, pallor, warm. ABSENT: rash Results Laboratory Results: 07/04/19 12:22 07/04/19 12:22 07/04/19 07/04/19 07/04/19 12:22 12:22 13:18 WBC 3.4 L RBC 2.14 L Hgb 5.8 L Hct 17.8 L MCV 83 MCH 27.0 MCHC 32.6 RDW 19.0 H Plt Count 395 Seg Neutrophils % 68.5 Sodium 140.2 Potassium 3.5 L Chloride 109 H Carbon Dioxide 24 Anion Gap 7 BUN 21 H Creatinine 0.81 Est GFR ( Amer) > 60 Glucose 88 Calcium 9.4 Total Bilirubin 0.2 AST 24 Alkaline Phosphatase 48 Total Protein 5.4 L Albumin 2.8 L Urine Color Urine Appearance Urine pH Ur Specific Broussard Urine Protein Urine Glucose (UA) Urine Ketones Urine Blood Urine Nitrite Ur Leukocyte Esterase Urine WBC (Auto) Urine RBC (Auto) Blood Type A POSITIVE Antibody Screen NEGATIVE 07/04/19 14:06 WBC RBC Hgb Hct MCV MCH MCHC RDW Plt Count Seg Neutrophils % Sodium Potassium Chloride Carbon Dioxide Anion Gap BUN Creatinine Est GFR ( Amer) Glucose Calcium Total Bilirubin AST Alkaline Phosphatase Total Protein Albumin Urine Color YELLOW Urine Appearance SLIGHTLY-CLOUDY Urine pH 7.0 Ur Specific Broussard 1.011 Urine Protein NEGATIVE Urine Glucose (UA) NEGATIVE Urine Ketones NEGATIVE Urine Blood NEGATIVE Urine Nitrite NEGATIVE Ur Leukocyte Esterase MODERATE H Urine WBC (Auto) 10 Urine RBC (Auto) 2 Blood Type Antibody Screen 07/04/19 07/04/19 12:22 12:22 Creatine Kinase 30 Troponin I < 0.012 Impressions: Chest X-Ray 07/04/19 12:59 IMPRESSION: NO ACUTE RADIOGRAPHIC FINDING IN THE CHEST. Assessment and Plan - Diagnosis (1) Gastrointestinal bleeding, lower Is this a current diagnosis for this admission?: Yes Plan: 07/04/2019-patient with heme positive stool. Patient and daughter deny any bright red blood per rectum. They deny dark black stools. The patient reports that she has a hemorrhoid and will occasionally see blood but this is typically related to straining. The patient will need a prep and colonoscopy. She has no abdominal discomfort and upper GI bleed is much less likely. There is likely a very slow bleed but with recent addition of anticoagulation for deep venous thrombosis it has accelerated. (2) Anemia associated with acute blood loss Is this a current diagnosis for this admission?: Yes Plan: 07/04/2019-hemoglobin was only 5.8. 2 units of packed red blood cells will be ordered. We will continue to follow hemoglobin. I did resume her iron. Her daughter reports that she has not been very compliant with iron therapy. I will recheck anemia studies as well (3) Hypokalemia Is this a current diagnosis for this admission?: Yes Plan: 07/04/2019-hypokalemia is mild. We will replete and monitor electrolytes. (4) Dehydration Is this a current diagnosis for this admission?: Yes Plan: 07/04/2019-BUN to creatinine ratio was greater than 20. The patient has a history of poor intake. The patient's daughter reports that her appetite is only recently increased. She will receive gentle IV fluids and we will monitor her blood work. BUN might be increased due to GI bleed but it is unlikely with a lower GI bleed. (5) Left leg DVT Qualifiers: Affected thrombotic vein of extremity: other lower extremity vein Chronicity: unspecified Qualified Code(s): I82.492 - Acute embolism and thrombosis of other specified deep vein of left lower extremity Is this a current diagnosis for this admission?: Yes Plan: 07/04/2019-recent diagnosis of DVT. I am going to hold the Eliquis at this time. We will utilize NORRIS stockings and subcutaneous heparin to try and prevent extension of the thrombus but not exacerbating the GI bleeding. At some point the patient will need to resume chronic anticoagulation for the DVT when the risk is felt to be acceptable. (6) Chronic anticoagulation Is this a current diagnosis for this admission?: Yes Plan: 07/04/2019-as noted above we will need to hold the chronic anticoagulation and resume at a maintenance dose when it is felt to be relatively safe. - Time Time Spent with patient: 35 or more minutes Medications reviewed and adjusted accordingly: Yes Anticipated discharge: Home with Homehealth - Inpatient Certification Based on my medical assessment, after consideration of the patient's comorbidities, presenting symptoms, or acuity I expect that the services needed warrant INPATIENT care.: Yes I certify that my determination is in accordance with my understanding of Medicare's requirements for reasonable and necessary INPATIENT services [42 CFR 412.3e].: Yes Medical Necessity: Significant Comorbidiites Make Outpatient Treatment Too Risky, Need For IV Fluids, Need for Pain Control, Other - Need for transfusion and endoscopy Post Hospital Care: D/C Auto Overhauler Documentation
--- NOTE | 2019-07-04 20:45 | ADVANCED CARE ---
- Diagnosis (1) Gastrointestinal bleeding, lower Diagnosis Current: Yes (2) Anemia associated with acute blood loss Diagnosis Current: Yes (3) Hypokalemia Diagnosis Current: Yes (4) Dehydration Diagnosis Current: Yes (5) Left leg DVT Diagnosis Current: Yes (6) Chronic anticoagulation Diagnosis Current: Yes Attendance: Session was held at the bedside with the patient and her daughter. Resuscitation Status: Do Not Resuscitate Discussion: We reviewed the patient's medical history and comorbidities. She reports that with her hospitalizations and recent stay at assisted living she feels that resuscitation is not warranted. Her daughter was in agreement. We discussed the fact that this current hospitalization with anemia should not pose a significant threat to her health however discovering the source of bleeding is crucial. She does have history of malignancy. I reassured the patient that we will continue to treat aggressively. She has come to the conclusion that she would rather be home as she will not return to assisted living. Care Planning Goals: Status parameters for ongoing care and in the event of catastrophic illness. Document(s) Completed: None Time Spent: 18 minutes
[2019-07-04] MEDS: HEPARIN SOD (PORCINE) 5,000 UNIT/ML 1 ML VIAL SUBCUT SCH (22:34)
[2019-07-04] MEDS: MIRTAZAPINE 15 MG TABLET PO SCH (22:34)
[2019-07-05 04:39] LABS: ABSOLUTE BASOPHILS # (AUTO) 0.1 10^3/uL (0.0-0.2); ABSOLUTE EOSINOPHILS # (AUTO) 0.2 10^3/uL (0.0-0.6); ABSOLUTE LYMPHOCYTES (AUTO) 0.8 10^3/uL (0.5-4.7); ABSOLUTE MONOCYTES (AUTO) 0.4 10^3/uL (0.1-1.4); ABSOLUTE NEUT (AUTO) 1.9 10^3/uL (1.7-8.2); ABSOLUTE RETICS # 0.077 10^6/uL (0.028-0.122); BASOPHILS % (AUTO) 2.5 % (0-2); EOSINOPHILS % (AUTO) 6.4 % (0-6); HEMATOCRIT 30.9 % (36.0-47.0); LYMPHOCYTES % (AUTO) 24.6 % (13-45); MEAN CORPUSCULAR HEMOGLOBIN 29.1 pg (27.0-33.4); MEAN CORPUSCULAR HGB CONC 34.4 g/dL (32.0-36.0); MEAN CORPUSCULAR VOLUME 85 fl (80-97); MONOCYTES % (AUTO) 10.6 % (3-13); PLATELET COUNT 350 10^3/uL (150-450); RED BLOOD COUNT 3.66 10^6/uL (3.72-5.28); RED CELL DISTRIBUTION WIDTH 16.5 % (11.5-14.0); RETICULOCYTE COUNT (AUTO) 2.11 % (0.66-2.85); SEGMENTED NEUTROPHILS % (AUTO) 55.9 % (42-78); TOTAL CELLS COUNTED % (AUTO) 100 %; WHITE BLOOD COUNT 3.4 10^3/uL (4.0-10.5)
[2019-07-05 04:48] LABS: HEMOGLOBIN 10.6 g/dL (12.0-15.5)
[2019-07-05 04:52] LABS: ANION GAP 6 (5-19); BLOOD UREA NITROGEN 16 mg/dL (7-20); CALCIUM 9.2 mg/dL (8.4-10.2); CARBON DIOXIDE 24 mmol/L (22-30); CHLORIDE 113 mmol/L (98-107); GLUCOSE 76 mg/dL (75-110); IRON(TIBC) 61.5 ug/dL (37-170); POTASSIUM 3.2 mmol/L (3.6-5.0)
[2019-07-05] MEDS: NORMAL SALINE 1000 ML 1,000 ML IV PRN ×2 (05:55→17:46)
[2019-07-05] MEDS: HEPARIN SOD (PORCINE) 5,000 UNIT/ML 1 ML VIAL SUBCUT SCH ×2 (05:55→14:22)
[2019-07-05 05:57] LABS: FOLATE 6.96 ng/mL (>2.76)
[2019-07-05] MEDS ORDERED: TAMSULOSIN HCL 0.4 MG CAP.SR.24H PO SCH (10:00)
[2019-07-05] MEDS ORDERED: POTASSIUM CHLORIDE 10 MEQ TABLET.ER PO SCH (10:00)
[2019-07-05] MEDS ORDERED: (PENDING PHARMACY ID) (Ferrous Sulfate [Slow Fe] 142 MG) PO SCH (10:00)
[2019-07-05] MEDS ORDERED: (PENDING PHARMACY ID) (Multivit-Min/Iron/Folic/Lutein [Centrum Silver Women Tablet] 1 EACH PO SCH (10:00)
[2019-07-05] MEDS ORDERED: (PENDING PHARMACY ID) (Potassium Chloride [K-Tab Er] 20 MEQ) PO SCH (10:00)
[2019-07-05] MEDS: TAMSULOSIN HCL 0.4 MG CAP.SR.24H PO SCH (10:14)
[2019-07-05] MEDS: DRONABINOL 2.5 MG CAPSULE PO SCH ×2 (10:14→17:46)
[2019-07-05] MEDS: FERROUS SULFATE 325 MG TABLET PO SCH ×2 (10:15→17:46)
[2019-07-05] MEDS: DOCUSATE SODIUM 100 MG CAPSULE PO SCH ×2 (10:15→17:46)
[2019-07-05] MEDS: MULTIVITAMIN TABLET PO SCH (10:15)
[2019-07-05] MEDS: FLUTICASONE NASAL SPRAY 50 MCG/SPRY 120 SPRAY/16 GM NAREB SCH ×2 (10:15→23:21)
[2019-07-05] MEDS: LORATADINE 10 MG TABLET PO SCH (10:15)
[2019-07-05] MEDS: PANTOPRAZOLE SODIUM 40 MG TABLET.DR PO SCH (10:15)
[2019-07-05] MEDS ORDERED: BISACODYL 5 MG TABEC PO ONE (10:45)
[2019-07-05] MEDS: POTASSI CL 20 MEQ/50 ML RIDER 20 MEQ/50 ML RTUPB IV SCH ×2 (11:28→14:22)
[2019-07-05] MEDS ORDERED: PEG 3350/NA SULF,BICARB,CL/KCL 4000 ML PO ONE (11:30)
--- NOTE | 2019-07-05 12:29 | PDOC PROGRESS REPORT ---
Subjective Progress Note for:: 07/05/19 Subjective:: The patient is up in the chair. She still feels cold. I reviewed the bowel prep necessary for proper colonoscopy. She is quite frustrated as she has decreased mobility but I did explain to her that it is absolutely necessary for proper evaluation by colonoscopy. The patient is frustrated because she feels that she will be sitting on the commode all day. I did explain that she is not obligated to do the test however we will not be able to find out why she is vanessa mosley. Reason For Visit: ACUTE BLOOD LOSS,GI BLEED,RENAL CALCULI Physical Exam Vital Signs: Temp Pulse Resp BP Pulse Ox 98.5 F 77 20 132/74 H 100 07/04/19 20:58 07/04/19 20:58 07/04/19 20:58 07/04/19 20:58 07/04/19 20:58 Intake & Output 07/04/19 07/05/19 07/06/19 06:59 06:59 06:59 Intake Total 1260 Output Total 500 Balance 760 Weight 43.3 kg General appearance: PRESENT: no acute distress, cooperative, thin - Thin and frail appearing 83-year-old female sitting in the chair, well-developed Head exam: PRESENT: other - Temporal wasting Eye exam: PRESENT: conjunctiva pale Respiratory exam: PRESENT: clear to auscultation therese, symmetrical, unlabored. A BSENT: rales, rhonchi, tachypnea, wheezes Cardiovascular exam: PRESENT: RRR, +S1, +S2 GI/Abdominal exam: PRESENT: hypoactive bowel sounds, soft. ABSENT: distended, tenderness - Patient was slightly tender yesterday but this has resolved. Rectal exam: PRESENT: deferred Gentrourinary exam: ABSENT: indwelling catheter Extremities exam: PRESENT: +1 edema - Left leg Musculoskeletal exam: PRESENT: ambulatory. ABSENT: deformity Neurological exam: PRESENT: alert, awake, oriented to person, oriented to place, oriented to time, oriented to situation Psychiatric exam: PRESENT: appropriate affect - Somewhat frustrated affect. ABSENT: agitated, anxious Skin exam: PRESENT: dry, warm. ABSENT: erythema, rash Results Laboratory Results: 07/05/19 04:14 07/05/19 04:14 07/04/19 07/04/19 07/04/19 12:22 12:22 13:18 WBC 3.4 L RBC 2.14 L Hgb 5.8 L Hct 17.8 L MCV 83 MCH 27.0 MCHC 32.6 RDW 19.0 H Plt Count 395 Seg Neutrophils % 68.5 Retic Count (auto) Sodium 140.2 Potassium 3.5 L Chloride 109 H Carbon Dioxide 24 Anion Gap 7 BUN 21 H Creatinine 0.81 Est GFR ( Amer) > 60 Glucose 88 Calcium 9.4 Magnesium Iron TIBC % Saturation Ferritin Total Bilirubin 0.2 AST 24 Alkaline Phosphatase 48 Total Protein 5.4 L Albumin 2.8 L Vitamin B12 Folate Urine Color Urine Appearance Urine pH Ur Specific Sawyer Urine Protein Urine Glucose (UA) Urine Ketones Urine Blood Urine Nitrite Ur Leukocyte Esterase Urine WBC (Auto) Urine RBC (Auto) Blood Type A POSITIVE Antibody Screen NEGATIVE 07/04/19 07/05/19 07/05/19 14:06 04:14 04:14 WBC 3.4 L RBC 3.66 L Hgb 10.6 L D Hct 30.9 L MCV 85 MCH 29.1 MCHC 34.4 RDW 16.5 H Plt Count 350 Seg Neutrophils % 55.9 Retic Count (auto) 2.11 Sodium 143.0 Potassium 3.2 L Chloride 113 H Carbon Dioxide 24 Anion Gap 6 BUN 16 Creatinine 0.66 Est GFR ( Amer) > 60 Glucose 76 Calcium 9.2 Magnesium 2.1 Iron 61.5 TIBC 335 % Saturation 18 Ferritin 16.60 Total Bilirubin AST Alkaline Phosphatase Total Protein Albumin Vitamin B12 243.0 Folate 6.96 Urine Color YELLOW Urine Appearance SLIGHTLY-CLOUDY Urine pH 7.0 Ur Specific Sawyer 1.011 Urine Protein NEGATIVE Urine Glucose (UA) NEGATIVE Urine Ketones NEGATIVE Urine Blood NEGATIVE Urine Nitrite NEGATIVE Ur Leukocyte Esterase MODERATE H Urine WBC (Auto) 10 Urine RBC (Auto) 2 Blood Type Antibody Screen 07/04/19 07/04/19 12:22 12:22 Creatine Kinase 30 Troponin I < 0.012 Impressions: Chest X-Ray 07/04/19 12:59 IMPRESSION: NO ACUTE RADIOGRAPHIC FINDING IN THE CHEST. Assessment and Plan - Diagnosis (1) Gastrointestinal bleeding, lower Is this a current diagnosis for this admission?: Yes Plan: 07/04/2019-patient with heme positive stool. Patient and daughter deny any bright red blood per rectum. They deny dark black stools. The patient reports that she has a hemorrhoid and will occasionally see blood but this is typically related to straining. The patient will need a prep and colonoscopy. She has no abdominal discomfort and upper GI bleed is much less likely. There is likely a very slow bleed but with recent addition of anticoagulation for deep venous thrombosis it has accelerated. 07/05/2019-hemoglobin is significantly improved with transfusion. No evidence of bright red blood per rectum. Will initiate bowel prep for anticipated colonoscopy. (2) Anemia associated with acute blood loss Is this a current diagnosis for this admission?: Yes Plan: 07/04/2019-hemoglobin was only 5.8. 2 units of packed red blood cells will be ordered. We will continue to follow hemoglobin. I did resume her iron. Her daughter reports that she has not been very compliant with iron therapy. I will recheck anemia studies as well 07/05/2019-hemoglobin has come up to 10.6 which is much higher than would have been expected with 2 units of packed red blood cells. Regardless, the patient is feeling somewhat better. We will continue to monitor hemoglobin and for any evidence of ongoing GI bleeding. (3) Hypokalemia Is this a current diagnosis for this admission?: Yes Plan: 07/04/2019-hypokalemia is mild. We will replete and monitor electrolytes. 07/05/2019-potassium is lower today. I will give potassium by IV and initiate oral potassium supplementation. We may need to add additional potassium due to the bowel prep. (4) Dehydration Is this a current diagnosis for this admission?: Yes Plan: 07/04/2019-BUN to creatinine ratio was greater than 20. The patient has a h istory of poor intake. The patient's daughter reports that her appetite is only recently increased. She will receive gentle IV fluids and we will monitor her blood work. BUN might be increased due to GI bleed but it is unlikely with a lower GI bleed. 07/05/2019-creatinine has normalized. We will continue gentle IV fluid as the patient is only on clear liquids and will be having bowel prep. (5) Left leg DVT Qualifiers: Affected thrombotic vein of extremity: other lower extremity vein Chronicity: unspecified Qualified Code(s): I82.492 - Acute embolism and thrombosis of other specified deep vein of left lower extremity Is this a current diagnosis for this admission?: Yes Plan: 07/04/2019-recent diagnosis of DVT. I am going to hold the Eliquis at this time. We will utilize NORRIS stockings and subcutaneous heparin to try and prevent extension of the thrombus but not exacerbating the GI bleeding. At some point the patient will need to resume chronic anticoagulation for the DVT when the risk is felt to be acceptable. 07/05/2019-currently holding anticoagulation. She is on subcutaneous heparin. If there is evidence of ongoing bleeding we will have to stop the heparin as well. (6) Chronic anticoagulation Is this a current diagnosis for this admission?: Yes Plan: 07/04/2019-as noted above we will need to hold the chronic anticoagulation and resume at a maintenance dose when it is felt to be relatively safe. 07/05/2019-on hold as above (7) Physical deconditioning Is this a current diagnosis for this admission?: Yes Plan: 07/05/2019-the patient in fact is stronger than during her last hospitalization. I have asked physical therapy to work with the patient. Deconditioning is from multiple illness ease and anemia. - Time Time Spent with patient: 15-24 minutes Medications reviewed and adjusted accordingly: Yes Anticipated discharge: Home
[2019-07-05] MEDS: ACETAMINOPHEN 325 MG TABLET PO PRN (15:45)
[2019-07-05] MEDS: POTASSIUM CHLORIDE 10 MEQ TABLET.ER PO SCH (17:38)
--- NOTE | 2019-07-05 17:45 | PDOC CONSULTATION ---
Consultation Consult Date: 07/05/19 Provider Consulted: YANCI MCDONALD Consult reason:: Anemia with positive stool for Hemoccult History of Present Illness Admission Date/PCP: 07/04/19 15:55 ZARA NOBLE MD History of Present Illness: RAQUEL BARRIOS is a 83 year old female with recent history of DVT after a fall and noted to have a progressing weakness and brought to the ED yesterday. Her hemoglobin was noted to be 5.8 with a stool for Hemoccult positive she was transfused 2 units of packed cells today with a hemoglobin increased to 10. She was on Xarelto for the DVT and that was stopped yesterday. Patient denies any hematemesis. Admits to occasional dark stools but attributes this to iron pills that she is taking. Denies any significant abdominal pains though she said she had some mild left lower quadrant pains but on examination the abdomen is completely benign. 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 Neurological Medical History: Denies: Seizures Endocrine Medical History: Denies: Hyperthyroidism, Hypothyroidism Malignancy Medical History: Reports: Cervical Cancer, Colorectal Cancer, Skin Cancer Denies: Breast Cancer, Leukemia, Lung Cancer, Ovarian Cancer GI Medical History: Reports: Gastroesophageal Reflux Disease Denies: Crohn's Disease, Hiatal Hernia Musculoskeltal Medical History: Reports: Arthritis - knees Denies: Fibromyalgia Skin Medical History: Denies: Eczema, Psoriasis Psychiatric Medical History: Denies: Alcohol Dependency, Bipolar Disorder, Depression, Post Traumatic Stress Disorder, Substance Abuse, Tobacco Dependency Traumatic Medical History: Reports: None Hematology: Reports: Anemia - takes iron Denies: Hemophilia, Sickle Cell Disease Infectious Medical History: Denies: HIV Past Surgical History Past Surgical History: Reports: Appendectomy, Cholecystectomy, Hysterectomy, Other - Parotid tumor resection, partial colectomy Denies: Amputation, Section, Colostomy, Coronary Artery Bypass Graft, Gastric Bypass Surgery, Herniorrhaphy, Mastectomy, Pacemaker, Tonsillectomy, Tubal Ligation Social History Lives with: Other - She has had [facility]. Smoking Status: Unknown if Ever Smoked Electronic Cigarette use?: No Frequency of Alcohol Use: None Hx Recreational Drug Use: No Drugs: None Hx Prescription Drug Abuse: No - Advance Directive Resuscitation Status: Do Not Resuscitate Family History Family History: Reviewed & Not Pertinent Parental Family History Reviewed: Yes Children Family History Reviewed: No Sibling(s) Family History Reviewed.: No Medication/Allergy Home Medications: Fenofibrate 160 mg PO DAILY 06/01/19 Pantoprazole Sodium [Protonix [address] Tablet] 40 mg PO DAILY 06/01/19 Dronabinol [Marinol 2.5 mg Capsule] 2.5 mg PO BID 06/04/19 Ferrous Sulfate [Slow Fe] 142 mg PO BID 06/04/19 Fluticasone Propionate [Flonase Nasal [place] 50 Mcg/[place] 16 gm] 1 spray NAREB Q12 06/04/19 Loratadine [Claritin 10 mg Tablet] 10 mg PO DAILY 06/04/19 Metoclopramide HCl [Reglan 10 mg Tablet] 10 mg PO Q6HP PRN 06/04/19 Mirtazapine 7.5 mg PO QHS 06/04/19 Multivit-Min/Iron/Folic/Lutein [Centrum Silver Women Tablet] 1 each PO DAILY 06/04/19 Ondansetron HCl [Zofran 4 mg Tablet] 4 mg PO Q8HP PRN 06/04/19 Tamsulosin HCl [Flomax 0.4 mg Cap.sr] 0.4 mg PO DAILY 06/04/19 Rivaroxaban [Xarelto 15 mg Tablet] 15 mg PO BID #20 tablet 06/20/19 Potassium Chloride [K-Tab ER] 20 meq PO DAILY 07/04/19 Allergies/Adverse Reactions: doxycycline Allergy (Intermediate, Verified 07/05/19 02:37) Review of Systems Constitutional: PRESENT: as per HPI, other - Denies fever no chills Physical Exam Vital Signs: Temp Pulse Resp BP Pulse Ox 98.5 F 77 20 132/74 H 100 07/04/19 20:58 07/04/19 20:58 07/04/19 20:58 07/04/19 20:58 07/04/19 20:58 Intake & Output 07/04/19 07/05/19 07/06/19 06:59 06:59 06:59 Intake Total 1260 800 Output Total 500 375 Balance 760 425 Weight 43.3 kg General appearance: PRESENT: no acute distress Head exam: PRESENT: atraumatic Eye exam: PRESENT: conjunctiva pale Mouth exam: PRESENT: moist Neck exam: PRESENT: full ROM Respiratory exam: PRESENT: clear to auscultation therese Cardiovascular exam: PRESENT: RRR Pulses: PRESENT: normal radial pulses Vascular exam: PRESENT: normal capillary refill GI/Abdominal exam: PRESENT: soft - Nontender Rectal exam: PRESENT: deferred Extremities exam: PRESENT: full ROM Musculoskeletal exam: PRESENT: ambulatory Neurological exam: PRESENT: alert, oriented to person, oriented to place, oriented to time, oriented to situation Psychiatric exam: PRESENT: appropriate affect Skin exam: PRESENT: normal color, warm Results Laboratory Results: 07/05/19 04:14 07/05/19 04:14 07/04/19 07/05/19 07/05/19 13:18 04:14 04:14 WBC 3.4 L RBC 3.66 L Hgb 10.6 L D Hct 30.9 L MCV 85 MCH 29.1 MCHC 34.4 RDW 16.5 H Plt Count 350 Seg Neutrophils % 55.9 Retic Count (auto) 2.11 Sodium 143.0 Potassium 3.2 L Chloride 113 H Carbon Dioxide 24 Anion Gap 6 BUN 16 Creatinine 0.66 Est GFR ( Amer) > 60 Glucose 76 Calcium 9.2 Magnesium 2.1 Iron 61.5 TIBC 335 % Saturation 18 Ferritin 16.60 Vitamin B12 243.0 Folate 6.96 Blood Type A POSITIVE Antibody Screen NEGATIVE 07/04/19 07/04/19 12:22 12:22 Creatine Kinase 30 Troponin I < 0.012 Impressions: Chest X-Ray 07/04/19 12:59 IMPRESSION: NO ACUTE RADIOGRAPHIC FINDING IN THE CHEST. Assessment & Plan - Diagnosis (1) Anemia Qualifiers: Anemia type: unspecified type Qualified Code(s): D64.9 - Anemia, unspecified Is this a current diagnosis for this admission?: Yes (2) Gastrointestinal bleeding, lower Is this a current diagnosis for this admission?: Yes (3) Left leg DVT Qualifiers: Affected thrombotic vein of extremity: other lower extremity vein Chronicity: unspecified Qualified Code(s): I82.492 - Acute embolism and thrombosis of other specified deep vein of left lower extremity Is this a current diagnosis for this admission?: Yes - Time Time Spent: 30 to 50 Minutes - Inpatient Certification Medical Necessity: Need For IV Fluids, Need for Surgery, Risk of Complication if Not Cared For in Hospital - Plan Summary Plan Summary: 83-year-old female with a recent history of DVT on Xarelto noted to have progressive weakness. Patient seen in ED yesterday noted to have a hemoglobin of 5.8 and transfused 2 units of packed cells with a home hemoglobin going up to 10. She has stool positive for Hemoccult. Xarelto has been stopped since yesterday. I just saw the patient and she just has taken about a third of GoLYTELY in about 8 hours. She said she will try to drink as much but she feels unlikely that she will finish the GoLYTELY and claims she did rather than finish the bowel prep. I did explain to her the importance of finishing her taking as much of the GoLYTELY to have a better colonoscopy. An order was made for a stat coag studies. I have discussed this patient's case with the hospitalist who agreed to stop the low-dose heparin tonight. Patient for EGD and colonoscopy tomorrow by Dr. Verdugo
[2019-07-05 20:04] LABS: INTERNATIONAL RATION (INR) 1.25; PROTHROMBIN TIME 15.8 SEC (11.4-15.4)
[2019-07-05 20:05] LABS: PARTIAL THROMBOPLASTIN TIME 33.9 SEC (23.5-35.8)
[2019-07-05] MEDS: MIRTAZAPINE 15 MG TABLET PO SCH (23:21)
[2019-07-06 05:08] LABS: HEMATOCRIT 30.2 % (36.0-47.0); HEMOGLOBIN 10.3 g/dL (12.0-15.5); MEAN CORPUSCULAR HEMOGLOBIN 28.9 pg (27.0-33.4); MEAN CORPUSCULAR HGB CONC 34.2 g/dL (32.0-36.0); MEAN CORPUSCULAR VOLUME 84 fl (80-97); PLATELET COUNT 358 10^3/uL (150-450); RED BLOOD COUNT 3.58 10^6/uL (3.72-5.28); RED CELL DISTRIBUTION WIDTH 16.7 % (11.5-14.0); WHITE BLOOD COUNT 2.8 10^3/uL (4.0-10.5)
[2019-07-06 05:26] LABS: ANION GAP 8 (5-19); BLOOD UREA NITROGEN 10 mg/dL (7-20); CALCIUM 9.1 mg/dL (8.4-10.2); CARBON DIOXIDE 22 mmol/L (22-30); CHLORIDE 114 mmol/L (98-107); POTASSIUM 3.4 mmol/L (3.6-5.0)
[2019-07-06 05:28] LABS: GLUCOSE 68 mg/dL (75-110)
[2019-07-06] MEDS ORDERED: DEXTROSE 50%-WATER 25 GM/50 ML DISP.SYRIN IV ONE ×3 (05:45→12:00)
[2019-07-06] MEDS ORDERED: DEXTROSE 5%-NORMAL SALINE 1,000 ML IV PRN (11:25)
[2019-07-06] MEDS ORDERED: DIPHENHYDRAMINE HCL 50 MG/ML VIAL IV PRN (12:18)
[2019-07-06] MEDS ORDERED: FENTANYL CITRATE INJ/PF 100 MCG/2 ML AMPUL ONE (12:40)
[2019-07-06] MEDS ORDERED: PROPOFOL INJ 200 MG/20 ML VIAL IV ONE (12:40)
[2019-07-06] MEDS ORDERED: MIDAZOLAM 2 MG/2 ML INJ ONE (12:40)
--- NOTE | 2019-07-06 14:03 | Operative Report ---
Operative Report DATE OF SURGERY: 07/06/19 PREOPERATIVE DIAGNOSIS: 1. Blood loss anemia. 2. Heme positive stool. 3. W eight loss. 4. DNR status POSTOPERATIVE DIAGNOSIS: Same with. 1. Mild antritis. 2. Unable to advance colonoscope beyond 40 cm from anal verge OPERATION: 1. Esophagogastroduodenoscopy. 2. Cold forceps biopsy of gastric antrum. 3. Flexible sigmoid endoscopy to 40 cm from anal verge SURGEON: ODILON CHARLES [employer] SUPERVISOR: None TISSUE REMOVED OR ALTERED: Cold forceps biopsy COMPLICATIONS: None INTRAOPERATIVE FINDINGS: See below PROCEDURE: The patient was taken to the preop holding area to the main operating room where LMAC anesthesia was induced. She was placed in semirecumbent position, head elevated. Oral mouthpiece inserted. Surgical plan surgical timeout were conducted. The flexible upper endoscope was advanced to the oropharynx, down the esophagus through the stomach into the first and second portion of the duodenum. This was an excellent study, without any complications. There was no evidence of bleeding, stricture polyp clots or significant mucosal abnormalities. 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 The first and second portions of the duodenum were normal. There was bile coming out of the ampulla. Photos taken. The scope was retroflexed in the stomach and there was a small to moderate sized hiatal hernia. Again no evidence of bleeding. The scope was brought back to the GE junction. The Z line was at 38 cm from the incisor. The remainder of the upper endoscopy including the stomach was unremarkable. The scope was withdrawn to the patient's oropharynx. She tolerated procedure well. The patient was then placed in the extreme left lateral decubitus position, knees to chest. Instrumentation was set up for colonoscopy. A rectal exam was performed. There were external hemorrhoids, collapsed. The flexible pediatric colonoscope was advanced to the anorectal canal at approximately 40 cm from the anal verge. Unfortunately I was unable to advance the scope beyond this point. We manipulated the patient in the left lateral right lateral and supine positions, and placed abdominal wall pressure in attempt to assist with scope manipulation but these were unsuccessful. Did not see any pathology from the anal verge to the sigmoid colon. In light of the patient's age, DNR status, and desire to have no aggressive therapy, I thought the better part of valor was to abort the procedure and remove the scope. This was done uneventfully. The patient tolerated procedure well and was taken the recovery area in stable condition. Recommendations: 1. I spoke with hospitalist this afternoon. In light of the patient's DNR status, and desire for nonaggressive therapy, I would not recommend additional therapeutic studies such as air-contrast barium enema. 2. Surgery will sign off; reconsult if clinically indicated.
[2019-07-06] MEDS ORDERED: POTASSIUM CHLORIDE 10 MEQ TABLET.ER PO ONE (14:36)
--- NOTE | 2019-07-06 14:45 | PDOC PROGRESS REPORT ---
Subjective Progress Note for:: 07/06/19 Subjective:: During encounter this morning, patient was comfortable without complaints. She had not had a bowel movement this morning but denies any abdominal pain or hematochezia currently. Reason For Visit: ACUTE BLOOD LOSS,GI BLEED,RENAL CALCULI Physical Exam Vital Signs: Temp Pulse Resp BP Pulse Ox 97.4 F 77 11 L 89/56 L 100 07/06/19 13:54 07/06/19 14:04 07/06/19 14:04 07/06/19 14:04 07/06/19 14:04 Intake & Output 07/05/19 07/06/19 07/07/19 06:59 06:59 06:59 Intake Total 1260 4710 1000 Output Total 500 375 Balance 760 4335 1000 Weight 43.3 kg 43.5 kg 43.5 kg General appearance: PRESENT: no acute distress, cooperative Head exam: PRESENT: normocephalic Neck exam: ABSENT: JVD Respiratory exam: PRESENT: clear to auscultation therese, symmetrical, unlabored. ABSENT: tachypnea, wheezes Cardiovascular exam: PRESENT: RRR, +S1, +S2. ABSENT: tachycardia GI/Abdominal exam: PRESENT: normal bowel sounds, soft. ABSENT: distended, rebound, rigid, tenderness Neurological exam: PRESENT: alert, awake, oriented to person, oriented to place, oriented to time Results Laboratory Results: 07/06/19 04:41 07/06/19 04:41 07/06/19 07/06/19 04:41 04:41 WBC 2.8 L RBC 3.58 L Hgb 10.3 L Hct 30.2 L MCV 84 MCH 28.9 MCHC 34.2 RDW 16.7 H Plt Count 358 Sodium 143.7 Potassium 3.4 L Chloride 114 H Carbon Dioxide 22 Anion Gap 8 BUN 10 Creatinine 0.53 Est GFR ( Amer) > 60 Glucose 68 L Calcium 9.1 07/04/19 20:30 Clean Catch Midstream Urine Culture - Final NO GROWTH 2 DAYS 07/04/19 07/04/19 12:22 12:22 Creatine Kinase 30 Troponin I < 0.012 Impressions: Chest X-Ray 07/04/19 12:59 IMPRESSION: NO ACUTE RADIOGRAPHIC FINDING IN THE CHEST. Assessment and Plan - Diagnosis (1) Anemia associated with acute blood loss Is this a current diagnosis for this admission?: Yes Plan: 07/04/2019-hemoglobin was only 5.8. 2 units of packed red blood cells will be ordered. We will continue to follow hemoglobin. I did resume her iron. Her d dhara reports that she has not been very compliant with iron therapy. I will recheck anemia studies as well 07/05/2019-hemoglobin has come up to 10.6 which is much higher than would have been expected with 2 units of packed red blood cells. Regardless, the patient is feeling somewhat better. We will continue to monitor hemoglobin and for any evidence of ongoing GI bleeding. 07/06/2019-hemoglobin holding steady in the 10s. Continue to monitor CBC. (2) Gastrointestinal bleeding, lower Is this a current diagnosis for this admission?: Yes Plan: 07/04/2019-patient with heme positive stool. Patient and daughter deny any br ight red blood per rectum. They deny dark black stools. The patient reports that she has a hemorrhoid and will occasionally see blood but this is typically related to straining. The patient will need a prep and colonoscopy. She has no abdominal discomfort and upper GI bleed is much less likely. There is likely a very slow bleed but with recent addition of anticoagulation for deep venous thrombosis it has accelerated. 07/05/2019-hemoglobin is significantly improved with transfusion. No evidence of bright red blood per rectum. Will initiate bowel prep for anticipated colonoscopy. 07/06/2019-EGD and colonoscopy performed today. Colonoscopy was limited to the 40 cm from the anal verge due to tortuosity of the colon. We then this limitations, no evidence of upper or lower GI bleed was noted. For now, will manage conservatively with monitoring blood count and educating patient about awareness to bloody stools and to report this if noted. (3) Left leg DVT Qualifiers: Affected thrombotic vein of extremity: other lower extremity vein Chronicity: unspecified Qualified Code(s): I82.492 - Acute embolism and thrombosis of other specified deep vein of left lower extremity Is this a current diagnosis for this admission?: Yes Plan: 07/04/2019-recent diagnosis of DVT. I am going to hold the Eliquis at this time. We will utilize NORRIS stockings and subcutaneous heparin to try and prevent extension of the thrombus but not exacerbating the GI bleeding. At some point the patient will need to resume chronic anticoagulation for the DVT when the risk is felt to be acceptable. 07/05/2019-currently holding anticoagulation. She is on subcutaneous heparin. If there is evidence of ongoing bleeding we will have to stop the heparin as well. 07/06/2019-Heparin drip must have been discontinued this morning in light of endoscopies. Monitor CBC till tomorrow. If CBC still holding by tomorrow, consider restarting patient on her home anticoagulation Eliquis or consider an anticoagulant with potential reversibility such as Lovenox, Coumadin or Pradaxa. (4) Physical deconditioning Is this a current diagnosis for this admission?: Yes Plan: 07/05/2019-the patient in fact is stronger than during her last hospitalization. I have asked physical therapy to work with the patient. Deconditioning is from multiple illness ease and anemia. (5) Dehydration Is this a current diagnosis for this admission?: Yes Plan: 07/04/2019-BUN to creatinine ratio was greater than 20. The patient has a history of poor intake. The patient's daughter reports that her appetite is only recently increased. She will receive gentle IV fluids and we will monitor her blood work. BUN might be increased due to GI bleed but it is unlikely with a lower GI bleed. 07/05/2019-creatinine has normalized. We will continue gentle IV fluid as the patient is only on clear liquids and will be having bowel prep. - Time Time Spent with patient: Less than 15 minutes
[2019-07-06] MEDS: DOCUSATE SODIUM 100 MG CAPSULE PO SCH ×2 (16:07→17:10)
[2019-07-06] MEDS: LORATADINE 10 MG TABLET PO SCH (16:07)
[2019-07-06] MEDS: FERROUS SULFATE 325 MG TABLET PO SCH ×2 (16:07→18:57)
[2019-07-06] MEDS: POTASSIUM CHLORIDE 10 MEQ TABLET.ER PO SCH ×2 (16:07→18:56)
[2019-07-06] MEDS: FLUTICASONE NASAL SPRAY 50 MCG/SPRY 120 SPRAY/16 GM NAREB SCH ×2 (16:07→23:01)
[2019-07-06] MEDS: DRONABINOL 2.5 MG CAPSULE PO SCH ×2 (16:08→18:57)
[2019-07-06] MEDS: MULTIVITAMIN TABLET PO SCH (16:13)
[2019-07-06] MEDS: TAMSULOSIN HCL 0.4 MG CAP.SR.24H PO SCH (16:14)
[2019-07-06] MEDS: PANTOPRAZOLE SODIUM 40 MG TABLET.DR PO SCH (16:14)
[2019-07-06] MEDS: MIRTAZAPINE 15 MG TABLET PO SCH (23:01)
[2019-07-07 05:02] LABS: HEMATOCRIT 30.2 % (36.0-47.0); HEMOGLOBIN 10.2 g/dL (12.0-15.5); MEAN CORPUSCULAR HEMOGLOBIN 28.7 pg (27.0-33.4); MEAN CORPUSCULAR HGB CONC 33.8 g/dL (32.0-36.0); MEAN CORPUSCULAR VOLUME 85 fl (80-97); PLATELET COUNT 335 10^3/uL (150-450); RED BLOOD COUNT 3.56 10^6/uL (3.72-5.28); RED CELL DISTRIBUTION WIDTH 16.9 % (11.5-14.0); WHITE BLOOD COUNT 3.6 10^3/uL (4.0-10.5)
[2019-07-07 05:22] LABS: BLOOD UREA NITROGEN 5 mg/dL (7-20); CALCIUM 9.2 mg/dL (8.4-10.2); GLUCOSE 86 mg/dL (75-110); POTASSIUM 3.6 mmol/L (3.6-5.0)
[2019-07-07 05:27] LABS: CARBON DIOXIDE 24 mmol/L (22-30); CHLORIDE 113 mmol/L (98-107)
[2019-07-07 05:38] LABS: ANION GAP 5 (5-19)
[2019-07-07] MEDS: LORATADINE 10 MG TABLET PO SCH (11:44)
[2019-07-07] MEDS: FERROUS SULFATE 325 MG TABLET PO SCH (11:44)
[2019-07-07] MEDS: DOCUSATE SODIUM 100 MG CAPSULE PO SCH (11:44)
[2019-07-07] MEDS: TAMSULOSIN HCL 0.4 MG CAP.SR.24H PO SCH (11:44)
[2019-07-07] MEDS: ACETAMINOPHEN 325 MG TABLET PO PRN (11:44)
[2019-07-07] MEDS: DRONABINOL 2.5 MG CAPSULE PO SCH (11:45)
[2019-07-07] MEDS: POTASSIUM CHLORIDE 10 MEQ TABLET.ER PO SCH (11:45)
[2019-07-07] MEDS: MULTIVITAMIN TABLET PO SCH (11:45)
[2019-07-07] MEDS: PANTOPRAZOLE SODIUM 40 MG TABLET.DR PO SCH (11:45)
[2019-07-07] MEDS: FLUTICASONE NASAL SPRAY 50 MCG/SPRY 120 SPRAY/16 GM NAREB SCH (11:45)
--- NOTE | 2019-07-07 12:09 | PDOC DISCHARGE SUMMARY ---
Impression - Admit/DC Date/PCP Admission Date/Primary Care Provider: 07/04/19 15:55 ZARA NOBLE MD Discharge Date: 07/07/19 - Discharge Diagnosis (1) Anemia associated with acute blood loss Is this a current diagnosis for this admission?: Yes (2) Chronic anticoagulation Is this a current diagnosis for this admission?: Yes (3) Gastrointestinal bleeding, lower Is this a current diagnosis for this admission?: Yes (4) Left leg DVT Is this a current diagnosis for this admission?: Yes (5) Malnutrition Is this a current diagnosis for this admission?: Yes - Additional Information Resuscitation Status: Do Not Resuscitate Discharge Diet: Cardiac Discharge Activity: Balance Activity w/Rest, Supervised Activity Referrals: ZARA NOBLE MD [Primary Care Provider] - (1 week) Home Medications: Fenofibrate 160 mg PO DAILY 06/01/19 Pantoprazole Sodium [Protonix [address] Tablet] 40 mg PO DAILY 06/01/19 Dronabinol [Marinol 2.5 mg Capsule] 2.5 mg PO BID 06/04/19 Ferrous Sulfate [Slow Fe] 142 mg PO BID 06/04/19 Fluticasone Propionate [Flonase Nasal Linneus 50 Mcg/Linneus 16 gm] 1 spray NAREB Q12 06/04/19 Loratadine [Claritin 10 mg Tablet] 10 mg PO DAILY 06/04/19 Metoclopramide HCl [Reglan 10 mg Tablet] 10 mg PO Q6HP PRN 06/04/19 Mirtazapine 7.5 mg PO QHS 06/04/19 Multivit-Min/Iron/Folic/Lutein [Centrum Silver Women Tablet] 1 each PO DAILY 06/04/19 Ondansetron HCl [Zofran 4 mg Tablet] 4 mg PO Q8HP PRN 06/04/19 Tamsulosin HCl [Flomax 0.4 mg Cap.sr] 0.4 mg PO DAILY 06/04/19 Rivaroxaban [Xarelto 15 mg Tablet] 15 mg PO BID #20 tablet 06/20/19 Potassium Chloride [K-Tab ER] 20 meq PO DAILY 07/04/19 History of Present Illiness History of Present Illness: RAQUEL BARRIOS is a 83 year old female who was hospitalized in March. She has multiple comorbidities. She was recently evaluated in the emergency department after a fall. She was found to have a deep venous thrombosis in her left leg and started on Xarelto. She was having progressive weakness and presented to the emergency department with her daughter. Evaluation revealed occult blood positive stool and a hemoglobin of 5.8. 2 units of packed red blood cells were administered in the emergency department. She does have a history of ureteral stones in her urine did have white cells. She gets recurrent urinary tract infections and is currently working with urology to assess for possible treatment such as lithotripsy. She was referred to the hospitalist service for admission. Hospital Course Hospital Course: Given some packed red blood cells and her hemoglobin came up appropriately. It remained stable without any evidence of further blood loss. She was taken off her anticoagulation while she was here. EGD was unremarkable. Colonoscopy was incomplete in that it could only advance the scope about 40 cm due to the tortuosity of her colon, but during that stretch no obvious source of bleeding was noted. She has been on anticoagulation for approximately 3 months for the DVT, and she will need that for a few more months unless she has another bleeding episode. Her home medications were used to manage her comorbid conditions. She was eating and drinking without difficulty. She was seen by physical therapy and did 120 feet with a walker. She says she has a walker at home. Physical therapy was recommending home health PT. Her labs and examination were reassuring and she was discharged in stable condition. Physical Exam Vital Signs: Temp Pulse Resp BP Pulse Ox 99.3 F 80 16 92/51 L 98 07/07/19 08:00 07/07/19 08:00 07/07/19 08:00 07/07/19 08:00 07/07/19 08:00 Intake & Output 07/06/19 07/07/19 07/08/19 06:59 06:59 06:59 Intake Total 4710 1960 Output Total 375 Balance 4335 1960 Weight 43.5 kg 43.5 kg General appearance: PRESENT: no acute distress, cooperative, disheveled, thin Respiratory exam: PRESENT: clear to auscultation therese, symmetrical, unlabored. ABSENT: accessory muscle use, chest wall tenderness, crackles, prolonged expiratory phas, rhonchi, tachypnea, wheezes Cardiovascular exam: PRESENT: RRR, +S1, +S2 Pulses: PRESENT: normal carotid pulses Vascular exam: PRESENT: normal capillary refill GI/Abdominal exam: PRESENT: normal bowel sounds, soft. ABSENT: distended, guarding, rebound, tenderness Extremities exam: ABSENT: clubbing, pedal edema Musculoskeletal exam: PRESENT: normal inspection. ABSENT: deformity Neurological exam: PRESENT: alert, awake, oriented to person, oriented to place, oriented to situation Psychiatric exam: PRESENT: appropriate affect, normal mood Skin exam: PRESENT: dry, warm Results Laboratory Results: WBC 3.6 10^3/uL (4.0-10.5) L 07/07/19 04:49 RBC 3.56 10^6/uL (3.72-5.28) L 07/07/19 04:49 Hgb 10.2 g/dL (12.0-15.5) L 07/07/19 04:49 Hct 30.2 % (36.0-47.0) L 07/07/19 04:49 MCV 85 fl (80-97) 07/07/19 04:49 MCH 28.7 pg (27.0-33.4) 07/07/19 04:49 MCHC 33.8 g/dL (32.0-36.0) 07/07/19 04:49 RDW 16.9 % (11.5-14.0) H 07/07/19 04:49 Plt Count 335 10^3/uL (150-450) 07/07/19 04:49 Lymph % (Auto) 24.6 % (13-45) 07/05/19 04:14 [place] % (Auto) 10.6 % (3-13) 07/05/19 04:14 Eos % (Auto) 6.4 % (0-6) H 07/05/19 04:14 Baso % (Auto) 2.5 % (0-2) H 07/05/19 04:14 Reticulocyte # 0.077 10^6/uL (0.028-0.122) 07/05/19 04:14 Absolute Neuts (auto) 1.9 10^3/uL (1.7-8.2) 07/05/19 04:14 Absolute Lymphs (auto) 0.8 10^3/uL (0.5-4.7) 07/05/19 04:14 Absolute Monos (auto) 0.4 10^3/uL (0.1-1.4) 07/05/19 04:14 Absolute Eos (auto) 0.2 10^3/uL (0.0-0.6) 07/05/19 04:14 Absolute Basos (auto) 0.1 10^3/uL (0.0-0.2) 07/05/19 04:14 Seg Neutrophils % 55.9 % (42-78) 07/05/19 04:14 Retic Count (auto) 2.11 % (0.66-2.85) 07/05/19 04:14 PT 15.8 SEC (11.4-15.4) H 07/05/19 19:30 INR 1.25 07/05/19 19:30 APTT 33.9 SEC (23.5-35.8) 07/05/19 19:30 Sodium 141.5 mmol/L (137-145) 07/07/19 04:49 Potassium 3.6 mmol/L (3.6-5.0) 07/07/19 04:49 Chloride 113 mmol/L (98-107) H 07/07/19 04:49 Carbon Dioxide 24 mmol/L (22-30) 07/07/19 04:49 Anion Gap 5 (5-19) 07/07/19 04:49 BUN 5 mg/dL (7-20) L 07/07/19 04:49 Creatinine 0.53 mg/dL (0.52-1.25) 07/07/19 04:49 Est GFR ( Amer) > 60 (>60) 07/07/19 04:49 Est GFR (MDRD) Non-Af > 60 (>60) 07/07/19 04:49 Glucose 86 mg/dL (75-110) 07/07/19 04:49 POC Glucose 135 mg/dL (70-110) H 07/06/19 12:08 Calcium 9.2 mg/dL (8.4-10.2) 07/07/19 04:49 Magnesium 2.1 mg/dL (1.6-2.3) 07/05/19 04:14 Iron 61.5 ug/dL (37-170) 07/05/19 04:14 TIBC 335 ug/dL (250-450) 07/05/19 04:14 % Saturation 18 % 07/05/19 04:14 Ferritin 16.60 ng/mL (11.1-264.0) 07/05/19 04:14 Total Bilirubin 0.2 mg/dL (0.2-1.3) 07/04/19 12:22 Direct Bilirubin 0.2 mg/dL (0.0-0.4) 07/04/19 12:22 Neonat Total Bilirubin Not Reportable 07/04/19 12:22 Neonat Direct Bilirubin Not Reportable 07/04/19 12:22 Neonat Indirect Bili Not Reportable 07/04/19 12:22 AST 24 U/L (14-36) 07/04/19 12:22 ALT 9 U/L (<35) 07/04/19 12:22 Alkaline Phosphatase 48 U/L (38-126) 07/04/19 12:22 Creatine Kinase 30 U/L (30-135) 07/04/19 12:22 Troponin I < 0.012 ng/mL 07/04/19 12:22 Total Protein 5.4 g/dL (6.3-8.2) L 07/04/19 12:22 Albumin 2.8 g/dL (3.5-5.0) L 07/04/19 12:22 Vitamin B12 243.0 pg/mL (239-931) 07/05/19 04:14 Folate 6.96 ng/mL (>2.76) 07/05/19 04:14 Urine Color YELLOW 07/04/19 14:06 Urine Appearance SLIGHTLY-CLOUDY 07/04/19 14:06 Urine pH 7.0 (5.0-9.0) 07/04/19 14:06 Ur Specific [place] 1.011 07/04/19 14:06 Urine Protein NEGATIVE mg/dL (NEGATIVE) 07/04/19 14:06 Urine Glucose (UA) NEGATIVE mg/dL (NEGATIVE) 07/04/19 14:06 Urine Ketones NEGATIVE mg/dL (NEGATIVE) 07/04/19 14:06 Urine Blood NEGATIVE (NEGATIVE) 07/04/19 14:06 Urine Nitrite NEGATIVE (NEGATIVE) 07/04/19 14:06 Urine Bilirubin NEGATIVE (NEGATIVE) 07/04/19 14:06 Urine Urobilinogen NEGATIVE mg/dL (<2.0) 07/04/19 14:06 Ur Leukocyte Esterase MODERATE (NEGATIVE) H 07/04/19 14:06 Urine WBC (Auto) 10 /HPF 07/04/19 14:06 Urine RBC (Auto) 2 /HPF 07/04/19 14:06 Urine Bacteria (Auto) TRACE /HPF 07/04/19 14:06 Squamous Epi Cells Auto <1 /HPF 07/04/19 14:06 Urine Mucus (Auto) RARE /LPF 07/04/19 14:06 Urine Ascorbic Acid NEGATIVE (NEGATIVE) 07/04/19 14:06 POC Stool Occult Blood POSITIVE (NEGATIVE) 07/04/19 15:09 Blood Type A POSITIVE 07/04/19 13:18 Blood Type Confirm A POSITIVE 07/04/19 13:53 Antibody Screen NEGATIVE 07/04/19 13:18 Crossmatch See Detail 07/04/19 13:18 07/04/19 12:22 Troponin I < 0.012 Impressions: Chest X-Ray 07/04/19 12:59 IMPRESSION: NO ACUTE RADIOGRAPHIC FINDING IN THE CHEST. Plan Time Spent: Greater than 30 Minutes Stroke Is this a Stroke Patient?: No Acute Heart Failure - Is this a Heart Failure Patient?: No
[2019-07-07 14:22] VITALS: BP 127/75
== END 2019-07-07 14:55 | disposition home health service (06) | DRG 378 ==
LOC: ER 11:07 → EH 15:55 → 5 20:50
PROVIDERS: ADMIT Hospitalist; ATTEND Hospitalist
PROC: 30233N1 Transfusion of Nonautologous Red Blood Cells into Peripheral Vein, Percutaneous Approach (ICD-10-PCS; 2019-07-04)
PROC: 0DJD8ZZ Inspection of Lower Intestinal Tract, Via Natural or Artificial Opening Endoscopic (ICD-10-PCS; 2019-07-06)
PROC: 0DB78ZX Excision of Stomach, Pylorus, Via Natural or Artificial Opening Endoscopic, Diagnostic (ICD-10-PCS; principal; 2019-07-06 10:30)
DX: K92.1 Melena (principal); D62 Acute posthemorrhagic anemia; I82.492 Acute embolism and thrombosis of other specified deep vein of left lower extremity; E46 Unspecified protein-calorie malnutrition; E87.6 Hypokalemia; E86.0 Dehydration; K29.70 Gastritis, unspecified, without bleeding; K44.9 Diaphragmatic hernia without obstruction or gangrene; K64.4 Residual hemorrhoidal skin tags; Z66 Do not resuscitate; E78.5 Hyperlipidemia, unspecified; K21.9 Gastro-esophageal reflux disease without esophagitis; M17.0 Bilateral primary osteoarthritis of knee; Z79.01 Long term (current) use of anticoagulants; I25.2 Old myocardial infarction; Z85.41 Personal history of malignant neoplasm of cervix uteri; Z85.038 Personal history of other malignant neoplasm of large intestine; Z85.828 Personal history of other malignant neoplasm of skin; Z90.49 Acquired absence of other specified parts of digestive tract; Z90.710 Acquired absence of both cervix and uterus; Z91.81 History of falling; Z79.899 Other long term (current) drug therapy
CPT/HCPCS: 00813; 36415; 36430; 43239; 71045; 80048; 80053; 81001; 82550; 82607; 82728; 82746; 82962; 83540; 83550; 83735; 84484; 85025; 85027; 85045; 85610; 85730; 86850; 86900; 86901; 86920; 87086; 88305; 93005; 93010; 99285; A9270-GY; C9113; J1644; J2250; J2270; J2704; J3010; J3480; J3490; J7030; J7042; J7050; P9016

== ENCOUNTER 2019-08-07 11:08 | Observation (INO) | payer MEDICARE, OTHER ==
[2019-08-07] MEDS ORDERED: TRAMADOL HCL 50 MG TABLET PO ONE (11:22)
--- NOTE | 2019-08-07 11:25 | ER Document Report ---
ED Medical Screen (RME) - General Chief Complaint: General Weakness Stated Complaint: WEAKNESS/ANKLE SWELLING AND PAIN Time Seen by Provider: 08/07/19 11:17 Primary Care Provider: ZARA NOBLE MD [Primary Care Provider] - Follow up as needed Notes: Patient is an 83-year-old female who presents the emergency department with a chief complaint of generalized weakness and left lower extremity swelling. Patient is currently on Xarelto for DVT. Patient states she started to feel weak yesterday. Exam: No neurological deficits noted. Left lower extremity edema. I have greeted and performed a rapid initial assessment of this patient. A comprehensive ED assessment and evaluation of the patient, analysis of test results and completion of medical decision making process will be conducted by an additional ED providers. TRAVEL OUTSIDE OF THE [place] IN LAST 30 DAYS: No - Related Data Allergies/Adverse Reactions: doxycycline Allergy (Intermediate, Verified 08/07/19 11:15) Past Medical History - Past Medical History Cardiac Medical History: Reports: Hx DVT - LLE, Hx Heart Attack - pt states very mild attack, Hx Hypercholesterolemia, Hx Hypertension Denies: Hx Atrial Fibrillation, Hx Congestive Heart Failure, Hx Coronary Artery Disease, Hx Peripheral Vascular Disease, Hx Heart Murmur Pulmonary Medical History: Denies: Hx Asthma, Hx Bronchitis, Hx COPD, Hx Sleep Apnea, Hx Tuberculosis Neurological Medical History: Denies: Hx Cerebrovascular Accident, Hx Seizures Endocrine Medical History: Denies: Hx Hyperthyroidism, Hx Hypothyroidism Renal/ Medical History: Denies: Hx Kidney Stones, Hx Ovarian Cysts, Hx Peritoneal Dialysis, Hx Pelvic Inflammatory Disease Malignancy Medical History: Reports: Hx Cervical Cancer, Hx Colorectal Cancer, Hx Skin Cancer. Denies: Hx Breast Cancer, Hx Leukemia, Hx Lung Cancer, Hx Ovarian Cancer GI Medical History: Reports: Hx Gastroesophageal Reflux Disease. Denies: Hx Cr ohn's Disease, Hx Hiatal Hernia, Hx Irritable Bowel, Hx Liver Failure, Hx Pancreatitis, Hx Ulcer Musculoskeltal Medical History: Reports Hx Arthritis - knees, Denies Hx Fibrom yalgia, Denies Hx Muscular Dystrophy Skin Medical History: Denies Hx Eczema, Denies Hx Psoriasis Psychiatric Medical History: Denies: Hx Bipolar Disorder, Hx Depression, Hx Post Traumatic Stress Disorder Traumatic Medical History: Denies: Hx Fractures Infectious Medical History: Denies: Hx HIV Past Surgical History: Reports: Hx Appendectomy, Hx Bowel Surgery - Apr 2011 Bowel Resection, Hx Cholecystectomy, Hx Hysterectomy, Other - Parotid tumor resection, partial colectomy. Denies: Hx Section, Hx Colostomy, Hx Coronary Artery Bypass Graft, Hx Gastric Bypass Surgery, Hx Herniorrhaphy, Hx Mastectomy, Hx Pacemaker, Hx Tonsillectomy, Hx Tubal Ligation - Immunizations Hx Diphtheria, Pertussis, Tetanus Vaccination: No Physical Exam - Vital signs Vitals: Temp Pulse Resp BP Pulse Ox 98.1 F 85 16 101/50 L 100 08/07/19 11:16 08/07/19 11:16 08/07/19 11:16 08/07/19 11:16 08/07/19 11:16 Course - Vital Signs Vital signs: Temp Pulse Resp BP Pulse Ox 98.1 F 85 16 101/50 L 100 08/07/19 11:16 08/07/19 11:16 08/07/19 11:16 08/07/19 11:16 08/07/19 11:16 Doctor's Discharge - Discharge Referrals: ZARA NOBLE MD [Primary Care Provider] - Follow up as needed
[2019-08-07 11:57] LABS: INTERNATIONAL RATION (INR) 2.02; PROTHROMBIN TIME 23.1 SEC (11.4-15.4)
[2019-08-07 11:58] LABS: PARTIAL THROMBOPLASTIN TIME 33.8 SEC (23.5-35.8)
[2019-08-07 12:06] LABS: ALBUMIN 3.1 g/dL (3.5-5.0); ALKALINE PHOSPHATASE 38 U/L (38-126); ANION GAP 9 (5-19); ASPARTATE AMINO TRANSFERASE 29 U/L (14-36); BILIRUBIN,DIRECT 0.2 mg/dL (0.0-0.4); BILIRUBIN,TOTAL 0.2 mg/dL (0.2-1.3); BLOOD UREA NITROGEN 28 mg/dL (7-20); CALCIUM 9.4 mg/dL (8.4-10.2); CARBON DIOXIDE 24 mmol/L (22-30); CHLORIDE 108 mmol/L (98-107); GLUCOSE 92 mg/dL (75-110); TOTAL PROTEIN 5.9 g/dL (6.3-8.2)
[2019-08-07 12:07] LABS: ABSOLUTE BASOPHILS # (AUTO) 0.1 10^3/uL (0.0-0.2); ABSOLUTE EOSINOPHILS # (AUTO) 0.1 10^3/uL (0.0-0.6); ABSOLUTE LYMPHOCYTES (AUTO) 0.7 10^3/uL (0.5-4.7); ABSOLUTE MONOCYTES (AUTO) 0.3 10^3/uL (0.1-1.4); ABSOLUTE NEUT (AUTO) 2.6 10^3/uL (1.7-8.2); BASOPHILS % (AUTO) 2.3 % (0-2); EOSINOPHILS % (AUTO) 3.5 % (0-6); HEMATOCRIT 16.4 % (36.0-47.0); LYMPHOCYTES % (AUTO) 18.1 % (13-45); MEAN CORPUSCULAR HEMOGLOBIN 31.4 pg (27.0-33.4); MEAN CORPUSCULAR HGB CONC 32.8 g/dL (32.0-36.0); MEAN CORPUSCULAR VOLUME 96 fl (80-97); MONOCYTES % (AUTO) 7.7 % (3-13); PLATELET COUNT 273 10^3/uL (150-450); RED BLOOD COUNT 1.72 10^6/uL (3.72-5.28); RED CELL DISTRIBUTION WIDTH 20.1 % (11.5-14.0); SEGMENTED NEUTROPHILS % (AUTO) 68.4 % (42-78); TOTAL CELLS COUNTED % (AUTO) 100 %; WHITE BLOOD COUNT 3.7 10^3/uL (4.0-10.5)
[2019-08-07 12:15] LABS: HEMOGLOBIN 5.4 g/dL (12.0-15.5)
[2019-08-07] MEDS ORDERED: NORMAL SALINE 250 ML IV PRN ×3 (12:17→15:20)
--- NOTE | 2019-08-07 13:11 | RADIOLOGY REPORT (SQ) ---
EXAM DESCRIPTION: CHEST SINGLE VIEW COMPLETED DATE/TIME: 08/07/2019 1:01 pm REASON FOR STUDY: weakness COMPARISON: 07/04/2019 EXAM PARAMETERS: NUMBER OF VIEWS: One view. TECHNIQUE: Single frontal radiographic view of the chest acquired. RADIATION DOSE: NA LIMITATIONS: None. FINDINGS: LUNGS AND PLEURA: The lungs are hyperexpanded. There is no infiltrate, effusion, or mass. MEDIASTINUM AND HILAR STRUCTURES: No masses. Contour normal. HEART AND VASCULAR STRUCTURES: Heart normal in size. Normal vasculature. BONES: No acute findings. HARDWARE: None in the chest. OTHER: No other significant finding. IMPRESSION: Chronic lung changes with no acute cardiopulmonary finding. TECHNICAL DOCUMENTATION: JOB ID: [id number] [employer]- All Rights Reserved Reading location - IP/workstation name: [email or web address]
--- NOTE | 2019-08-07 13:30 | RADIOLOGY REPORT (SQ) ---
EXAM DESCRIPTION: CT HEAD WITHOUT COMPLETED DATE/TIME: 08/07/2019 1:15 pm REASON FOR STUDY: weakness COMPARISON: CT brain 10/26/2017, 01/09/2019, 04/11/2019 TECHNIQUE: Axial images acquired through the brain without intravenous contrast. Images reviewed wi th bone, brain and subdural windows. Additional sagittal and coronal reconstructions were generated. Images stored on PACS. All CT scanners at this facility use dose modulation, iterative reconstruction, and/or weight based d osing when appropriate to reduce radiation dose to as low as reasonably achievable (ALARA). [facility]: Dose Right [facility]: CareDose [facility]: Dose Right [facility]: Teradose 4D [facility]: Smart Motionloft RADIATION DOSE: CT Rad equipment meets quality standard of care and radiation dose reduction techniq ues were employed. CTDIvol: 53.2 mGy. DLP: 1017 mGy-cm. mGy. LIMITATIONS: None. FINDINGS: VENTRICLES: Normal size and contour. CEREBRUM: No masses. No hemorrhage. No midline shift. No evidence for acute infarction. Normal gra y/white matter differentiation. No areas of low density in the white matter. CEREBELLUM: No masses. No hemorrhage. No alteration of density. No evidence for acute infarction. EXTRAAXIAL SPACES: No fluid collections. No masses. ORBITS AND GLOBE: No intra- or extraconal masses. Normal contour of globe without masses. CALVARIUM: No fracture. PARANASAL SINUSES: Patient has had remote prior surgery with a right maxillary sinus prosthesis, righ t facial soft tissue prosthesis axial image 4. An old medial wall right orbital fracture is present unchanged. Unchanged screw right zygomatic arch stabilizing an old fracture. SOFT TISSUES: No mass or hematoma. Right facial soft tissue prostheses OTHER: No other significant finding. IMPRESSION: No acute intracranial changes EVIDENCE OF ACUTE STROKE: NO. COMMENT: Quality ID # [id number]: Final reports with documentation of one or more dose reduction techniques (e.g., Automated exposure control, adjustment of the mA and/or kV according to patient size, use of iterative reconstruction technique) TECHNICAL DOCUMENTATION: JOB ID: [id number] [employer]- All Rights Reserved Reading location - IP/workstation name: [email or web address]
--- NOTE | 2019-08-07 14:15 | ER Document Report ---
ED General - General Chief Complaint: General Weakness Stated Complaint: WEAKNESS/ANKLE SWELLING AND PAIN Time Seen by Provider: 08/07/19 11:17 Primary Care Provider: ZARA NOBLE MD [Primary Care Provider] - Follow up as needed TRAVEL OUTSIDE OF THE [place] IN LAST 30 DAYS: No - HPI Notes: Patient is a 83-year-old female who presents emergency department for evaluation of weakness and ankle swelling. She states that she is been weak and noticed the swelling over the last 48 to 72 hours. She has some pain in her ankles as well. Patient states she has black stool, but is always black because she takes iron. She is back on her Xarelto, with which she was treated for DVT. No chest pain. She does have some dyspnea with exertion. - Related Data Allergies/Adverse Reactions: doxycycline Allergy (Intermediate, Verified 08/07/19 11:15) Home Medications: list reviewed, please see note Past Medical History - General Information source: Patient, [facility] Records - Social History Smoking Status: Former Smoker Family History: Reviewed & Not Pertinent Patient has suicidal ideation: No Patient has homicidal ideation: No - Past Medical History Cardiac Medical History: Reports: Hx DVT - LLE, Hx Heart Attack - pt states very mild attack, Hx Hypercholesterolemia, Hx Hypertension Denies: Hx Atrial Fibrillation, Hx Congestive Heart Failure, Hx Coronary Artery Disease, Hx Peripheral Vascular Disease, Hx Heart Murmur Pulmonary Medical History: Denies: Hx Asthma, Hx Bronchitis, Hx COPD, Hx Sleep Apnea, Hx Tuberculosis Neurological Medical History: Denies: Hx Cerebrovascular Accident, Hx Seizures Endocrine Medical History: Denies: Hx Hyperthyroidism, Hx Hypothyroidism Renal/ Medical History: Denies: Hx Kidney Stones, Hx Ovarian Cysts, Hx Peritoneal Dialysis, Hx Pelvic Inflammatory Disease Malignancy Medical History: Reports: Hx Cervical Cancer, Hx Colorectal Cancer, Hx Skin Cancer. Denies: Hx Breast Cancer, Hx Leukemia, Hx Lung Cancer, Hx Ova vania Cancer GI Medical History: Reports: Hx Gastroesophageal Reflux Disease. Denies: Hx Crohn's Disease, Hx Hiatal Hernia, Hx Irritable Bowel, Hx Liver Failure, Hx Pancreatitis, Hx Ulcer Musculoskeletal Medical History: Reports Hx Arthritis - knees, Denies Hx Fibromyalgia, Denies Hx Muscular Dystrophy Skin Medical History: Denies Hx Eczema, Denies Hx Psoriasis Psychiatric Medical History: Denies: Hx Bipolar Disorder, Hx Depression, Hx Post Traumatic Stress Disorder Traumatic Medical History: Denies: Hx Fractures Infectious Medical History: Denies: Hx HIV Past Surgical History: Reports: Hx Appendectomy, Hx Bowel Surgery - Apr 2011 Bowel Resection, Hx Cholecystectomy, Hx Hysterectomy, Other - Parotid tumor resection, partial colectomy. Denies: Hx Section, Hx Colostomy, Hx Coronary Artery Bypass Graft, Hx Gastric Bypass Surgery, Hx Herniorrhaphy, Hx Mastectomy, Hx Pacemaker, Hx Tonsillectomy, Hx Tubal Ligation - Immunizations Hx Diphtheria, Pertussis, Tetanus Vaccination: No Hx Pneumococcal Vaccination: 04/23/18 Review of Systems - Review of Systems Constitutional: No symptoms reported EENT: No symptoms reported Cardiovascular: No symptoms reported Respiratory: See HPI Gastrointestinal: No symptoms reported Genitourinary: No symptoms reported Musculoskeletal: See HPI Skin: No symptoms reported Neurological/Psychological: No symptoms reported Physical Exam - Vital signs Vitals: Temp Pulse Resp BP Pulse Ox 98.1 F 85 16 101/50 L 100 08/07/19 11:16 08/07/19 11:16 08/07/19 11:16 08/07/19 11:16 08/07/19 11:16 - Notes Notes: Vital signs reviewed, please refer to chart. Head is normocephalic. Abnormality of right-sided facial features, unchanged. Pupils equal round, reactive to light. Neck is supple without meningismus. Heart is regular rate and rhythm. Lungs are clear to auscultation bilaterally. Abdomen is soft, nontender, normoactive bowel sounds throughout. Extremities without cyanosis, clubbing. +1 pitting edema at the ankles. Posterior calves are nontender. Peripheral pulses are equal. Skin is warm and dry. Patient is awake, alert, neurological exam is nonfocal. Course - Re-evaluation Re-evalutation: 08/07/19 14:13 Patient presents to the emergency department for evaluation. She had laboratory investigations as ordered through triage. Her blood pressures were borderline but stable. She has a history of a GI bleed with anemia, particularly while she was on Xarelto. She has a hemoglobin of 5.4 today. She was discharged with a hemoglobin of over 10 about a month ago. At this point I spoke with Dr. Lee, who will accept the patient. He asked that we consult surgery to see if they want any further intervention at this time. Awaiting phone call to Dr. Cooney. Otherwise, transfusion of 2 units of packed red blood cells was ordered. Patient is stable. 08/07/19 14:20 Dr. Cooney contacted. He will see the patient in consult. He states that he will likely keep her n.p.o. after midnight perform EGD tomorrow. - Vital Signs Vital signs: Temp Pulse Resp BP Pulse Ox 98.3 F 79 19 107/62 100 08/07/19 13:51 08/07/19 13:51 08/07/19 13:51 08/07/19 13:51 08/07/19 13:51 - Laboratory Result Diagrams: 08/07/19 11:30 08/07/19 11:30 Laboratory results interpreted by me: 08/07/19 08/07/19 08/07/19 11:30 11:30 11:30 WBC 3.7 L RBC 1.72 L Hgb 5.4 L Hct 16.4 L RDW 20.1 H Baso % (Auto) 2.3 H PT 23.1 H Chloride 108 H BUN 28 H Est GFR (MDRD) Non-Af 57 L Total Protein 5.9 L Albumin 3.1 L Crossmatch 08/07/19 12:45 WBC RBC Hgb Hct RDW Baso % (Auto) PT Chloride BUN Est GFR (MDRD) Non-Af Total Protein Albumin Crossmatch See Detail Discharge - Discharge Clinical Impression: Gastrointestinal bleeding, lower Anemia Qualifiers: Anemia type: unspecified type Qualified Code(s): D64.9 - Anemia, unspecified Left leg DVT Qualifiers: Chronicity: unspecified Condition: Stable Disposition: ADMITTED INPATIENT Admitting Provider: HospitalistEllis Unit Admitted: Telemetry Referrals: ZARA NOBLE MD [Primary Care Provider] - Follow up as needed
[2019-08-07] MEDS ORDERED: ONDANSETRON HCL INJ/PF 4 MG/2 ML SDV IV PRN (15:15)
[2019-08-07] MEDS ORDERED: MAG HYDROX/AL HYDROX/SIMETH SUSP 30 ML UDCUP PO PRN (15:15)
[2019-08-07] MEDS ORDERED: TRAMADOL HCL 50 MG TABLET PO PRN (15:19)
--- NOTE | 2019-08-07 16:20 | PDOC H&P ---
History of Present Illness Admission Date/PCP: 08/07/19 14:24 ZARA NOBLE MD Patient complains of: fatigue, sob History of Present Illness: RAQUEL BARRIOS is a 83 year old female with a history of iron deficiency anemia, recently diagnosed left leg DVT on Xarelto who presented to the hospital with complaints of weakness and fatigue. Also endorses some shortness of breath. Symptoms started in the past few days. Patient also continues to have swelling and tenderness in her left leg from a recently diagnosed DVT. Patient acknowledges that she has been taking her Xarelto as prescribed. Patient denies any evidence of bleeding including denial of hematochezia, melena, vaginal bleeding or any recent injuries leading to significant blood loss. Patient does follow a canvas shrinker and [facility]. Patient has been taking her iron pills and states that her stool has been dark brown for the past several years since she started taking iron pills but denies any black tarry stools. Past Medical History Cardiac Medical History: Reports: DVT - LLE, Hyperlipidema, Hypertension Denies: Atrial Fibrillation, Congestive Heart Failure, Coronary Artery Disease, Peripheral Vascular Disease, Heart Murmur Pulmonary Medical History: Denies: Asthma, Bronchitis, Chronic Obstructive Pulmonary Disease (COPD), Sleep Apnea, Tuberculosis Neurological Medical History: Denies: Seizures Endocrine Medical History: Denies: Hyperthyroidism, Hypothyroidism Malignancy Medical History: Reports: Cervical Cancer, Colorectal Cancer, Skin Cancer Denies: Breast Cancer, Leukemia, Lung Cancer, Ovarian Cancer GI Medical History: Reports: Gastroesophageal Reflux Disease Denies: Crohn's Disease, Hiatal Hernia Musculoskeltal Medical History: Reports: Arthritis - knees Denies: Fibromyalgia Skin Medical History: Denies: Eczema, Psoriasis Psychiatric Medical History: Denies: Bipolar Disorder, Depression, Post Traumatic Stress Disorder Hematology: Reports: Anemia - takes iron Denies: Hemophilia, Sickle Cell Disease Infectious Medical History: Denies: HIV Past Surgical History Past Surgical History: Reports: Appendectomy, Cholecystectomy, Hysterectomy, Other - Parotid tumor resection, partial colectomy Denies: Amputation, Section, Colostomy, Coronary Artery Bypass Graft, Gastric Bypass Surgery, Herniorrhaphy, Mastectomy, Pacemaker, Tonsillectomy, Tubal Ligation Social History Smoking Status: Former Smoker Frequency of Alcohol Use: None Hx Recreational Drug Use: No Drugs: None Hx Prescription Drug Abuse: No - Advance Directive Resuscitation Status: Do Not Resuscitate Family History Family History: Hypertension Parental Family History Reviewed: Yes Children Family History Reviewed: NA Sibling(s) Family History Reviewed.: Yes Medication/Allergy Home Medications: Pantoprazole Sodium [Protonix [address] Tablet] 40 mg PO DAILY 06/01/19 Ferrous Sulfate [Slow Fe] 142 mg PO BID 06/04/19 Tamsulosin HCl [Flomax 0.4 mg Cap.sr] 0.4 mg PO DAILY 06/04/19 Potassium Chloride [Klor-Con 10 Meq Tablet ER] 10 meq PO DAILY 08/07/19 Rivaroxaban [Xarelto] 20 mg PO DAILY 08/07/19 Allergies/Adverse Reactions: doxycycline Allergy (Intermediate, Verified 08/07/19 11:15) Review of Systems Constitutional: PRESENT: chills, fatigue. ABSENT: fever(s) Eyes: ABSENT: visual disturbances Nose, Mouth, and Throat: ABSENT: headache(s) Cardiovascular: ABSENT: chest pain, orthropnea Respiratory: PRESENT: dyspnea. ABSENT: cough, hemoptysis Gastrointestinal: ABSENT: abdominal pain, hematemesis, hematochezia, melena, nausea, vomiting Genitourinary: ABSENT: hematuria Musculoskeletal: ABSENT: joint swelling Integumentary: ABSENT: diaphoresis Neurological: ABSENT: confusion Psychiatric: ABSENT: anxiety Endocrine: ABSENT: polyuria Physical Exam Vital Signs: Temp Pulse Resp BP Pulse Ox 97.8 F 84 18 102/62 100 08/07/19 15:29 08/07/19 15:29 08/07/19 15:29 08/07/19 15:29 08/07/19 15:29 Intake & Output 08/06/19 08/07/19 08/08/19 06:59 06:59 06:59 Intake Total 0 Balance 0 Weight 45.9 kg General appearance: PRESENT: no acute distress, cooperative Eye exam: PRESENT: conjunctiva pale Mouth exam: PRESENT: dry mucosa Neck exam: ABSENT: JVD Respiratory exam: PRESENT: clear to auscultation therese, symmetrical, unlabored. ABSENT: tachypnea, wheezes Cardiovascular exam: PRESENT: RRR, +S1, +S2. ABSENT: tachycardia Vascular exam: PRESENT: pallor GI/Abdominal exam: PRESENT: normal bowel sounds, soft. ABSENT: distended, firm, guarding, rigid, tenderness Rectal exam: PRESENT: deferred Extremities exam: PRESENT: calf tenderness - Left leg, +1 edema - Left leg Neurological exam: PRESENT: alert, awake Psychiatric exam: ABSENT: agitated, anxious Results Laboratory Results: 08/07/19 11:30 08/07/19 11:30 08/07/19 08/07/19 08/07/19 11:30 11:30 12:45 WBC 3.7 L RBC 1.72 L Hgb 5.4 L Hct 16.4 L MCV 96 MCH 31.4 MCHC 32.8 RDW 20.1 H Plt Count 273 Seg Neutrophils % 68.4 Sodium 140.7 Potassium 4.0 Chloride 108 H Carbon Dioxide 24 Anion Gap 9 BUN 28 H Creatinine 0.94 Est GFR ( Amer) > 60 Glucose 92 Calcium 9.4 Total Bilirubin 0.2 AST 29 Alkaline Phosphatase 38 Total Protein 5.9 L Albumin 3.1 L Blood Type A POSITIVE Antibody Screen NEGATIVE Impressions: Chest X-Ray 08/07/19 11:24 IMPRESSION: Chronic lung changes with no acute cardiopulmonary finding. Head CT 08/07/19 11:24 IMPRESSION: No acute intracranial changes EVIDENCE OF ACUTE STROKE: NO. Assessment and Plan - Diagnosis (1) Anemia associated with acute blood loss Is this a current diagnosis for this admission?: Yes Plan: Likely from occult GI bleed provoked by Xarelto use I discussed with patient's Hematology provider Tasia Dumont at [facility] who states that patient's blood count has been dropping but never dropped this low as 5s. States ferritin end of 2018 was 20 indicating significant iron deficiency. Patient was evaluated with EGD which showed some gastritis and colonoscopy which was limited due to anatomic restrictions and tortuous colon on last admission last month. I have discussed with patient and her daughter and we have made a shared decision to pursue a more conservative approach and hold off on further endoscopies just yet. We will hold Xarelto and transfuse patient with 2 units of packed red blood cells and monitor hemoglobin stability. Folic acid, B12 and TSH were normal on last visit (2) Left leg DVT Qualifiers: Chronicity: unspecified Is this a current diagnosis for this admission?: Yes Plan: Recently diagnosed with extensive left leg dvt Unfortunately patient has proven to be a poor candidate for anticoagulation given her recent significant drops in Hb to 5s As such she will need to be set for IVC filter placement to prevent progression to PE. I will set patient to get this done inpatient vs outpatient Hold Xarelto Repeat US (3) GERD (gastroesophageal reflux disease) Qualifiers: Esophagitis presence: esophagitis presence not specified Qualified Code(s): K21.9 - Gastro-esophageal reflux disease without esophagitis Is this a current diagnosis for this admission?: Yes Plan: PPI - Time Time Spent with patient: 35 or more minutes
--- NOTE | 2019-08-07 16:35 | RADIOLOGY REPORT (SQ) ---
EXAM DESCRIPTION: VENOUS UNILATERAL LOWER COMPLETED DATE/TIME: 08/07/2019 4:17 pm REASON FOR STUDY: LLE swelling COMPARISON: 06/19/2019 TECHNIQUE: Dynamic and static castillo scale and color images acquired of the left leg venous system. Se lected spectral images acquired with additional compression and augmentation maneuvers. The contralat eral common femoral vein and saphenofemoral junction were also imaged. Images stored on PACS. LIMITATIONS: None. FINDINGS: COMMON FEMORAL: Normal phasicity, compression and augmentation. No visualized echogenic ma terial on castillo scale. No defects on color images. FEMORAL: Chronic nonocclusive thrombus in the superficial femoral vein. POPLITEAL: Normal compression, augmentation. No visualized echogenic material on castillo scale. No defec ts on color images. CALF VESSELS: Normal compression, augmentation. No visualized echogenic material on castillo scale. No de fects on color images. GSV and SSV: Normal compression, augmentation. No visualized echogenic material on castillo scale. No def ects on color images. ANY DEEP VENOUS INSUFFICIENCY: Not evaluated. ANY EVIDENCE OF POPLITEAL CYST: No. OTHER: No other significant finding. CONTRALATERAL COMMON FEMORAL VEIN AND SAPHENOFEMORAL JUNCTION: Normal phasicity, compression and augmentation. No visualized echogenic material on castillo scale. No de fects on color images. IMPRESSION: Clonidine nonocclusive DVT in the superficial femoral vein. No acute finding. TECHNICAL DOCUMENTATION: JOB ID: [id number] [email or web address] Rights Reserved Reading location - IP/workstation name: [email or web address]
[2019-08-07] MEDS: PANTOPRAZOLE SODIUM 40 MG TABLET.DR PO SCH (16:59)
--- NOTE | 2019-08-07 17:22 | ADVANCED CARE ---
- Diagnosis (1) Anemia associated with acute blood loss Diagnosis Current: Yes (2) Left leg DVT Diagnosis Current: Yes Attendance: Patient, daughter and myself. Resuscitation Status: Do Not Resuscitate Discussion: We discussed patient's CODE STATUS. Patient states that she wants to be DO NOT RESUSCITATE. She had questions regarding whether or not she could obtain rib fractures if resuscitated with CPR and I explained that this is very likely especially given her old feeble state. Patient also does not want intubation under any circumstances even in the absence of cardiac arrest. Firmly maintains DNR status. Also spent quality time discussing how to approach patient's anemia which is from suspected occult GI bleeding provoked by Xarelto use. We discussed whether there was a need whether we should pursue reevaluation with endoscopy given that this was just done last month and that she will require further sedation if this is repeated. Patient and her daughter would like to proceed conservative management for now with adequate transfusion and monitoring of hemoglobin levels and holding Xarelto. We have discussed the consequences of holding Xarelto in terms of her DVT and have decided to proceed with holding this medication for now. Time Spent: 17 mins
[2019-08-07] MEDS ORDERED: DEXTROSE 50%-WATER 25 GM/50 ML DISP.SYRIN IV PRN ×2 (17:45)
[2019-08-07] MEDS ORDERED: DEXTROSE 40% GEL 15 GM TUBE PO PRN ×2 (17:45)
[2019-08-07] MEDS ORDERED: GLUCAGON,HUMAN RECOMB 1 MG INJ SUBCUT PRN (17:45)
[2019-08-07] MEDS ORDERED: (PENDING PHARMACY ID) (Ferrous Sulfate [Slow Fe] 142 MG) PO SCH (18:00)
[2019-08-07] MEDS: ACETAMINOPHEN 325 MG TABLET PO PRN (20:04)
[2019-08-07 22:15] LABS: MEAN CORPUSCULAR HEMOGLOBIN 30.3 pg (27.0-33.4); MEAN CORPUSCULAR HGB CONC 34.1 g/dL (32.0-36.0); PLATELET COUNT 204 10^3/uL (150-450); RED BLOOD COUNT 2.81 10^6/uL (3.72-5.28); RED CELL DISTRIBUTION WIDTH 17.6 % (11.5-14.0); WHITE BLOOD COUNT 4.1 10^3/uL (4.0-10.5)
[2019-08-07 22:17] LABS: HEMOGLOBIN 8.5 g/dL (12.0-15.5); MEAN CORPUSCULAR VOLUME 89 fl (80-97)
[2019-08-08] MEDS: ACETAMINOPHEN 325 MG TABLET PO PRN (02:32)
[2019-08-08 05:12] LABS: HEMATOCRIT 25.6 % (36.0-47.0); HEMOGLOBIN 8.8 g/dL (12.0-15.5); MEAN CORPUSCULAR HEMOGLOBIN 30.4 pg (27.0-33.4); MEAN CORPUSCULAR HGB CONC 34.2 g/dL (32.0-36.0); MEAN CORPUSCULAR VOLUME 89 fl (80-97); PLATELET COUNT 212 10^3/uL (150-450); RED BLOOD COUNT 2.88 10^6/uL (3.72-5.28); RED CELL DISTRIBUTION WIDTH 17.9 % (11.5-14.0); WHITE BLOOD COUNT 3.7 10^3/uL (4.0-10.5)
[2019-08-08] MEDS: PANTOPRAZOLE SODIUM 40 MG TABLET.DR PO SCH (05:16)
[2019-08-08 05:39] LABS: ANION GAP 6 (5-19); BLOOD UREA NITROGEN 25 mg/dL (7-20); CARBON DIOXIDE 22 mmol/L (22-30); CHLORIDE 111 mmol/L (98-107); GLUCOSE 80 mg/dL (75-110); POTASSIUM 3.9 mmol/L (3.6-5.0)
[2019-08-08 07:55] LABS: ABSOLUTE RETICS # 0.148 10^6/uL (0.028-0.122); RETICULOCYTE COUNT (AUTO) 5.15 % (0.66-2.85)
[2019-08-08] MEDS ORDERED: POTASSIUM CHLORIDE 10 MEQ TABLET.ER PO SCH (10:00)
[2019-08-08] MEDS ORDERED: TAMSULOSIN HCL 0.4 MG CAP.SR.24H PO SCH (10:00)
[2019-08-08] MEDS ORDERED: FERROUS SULFATE 325 MG TABLET PO SCH (10:00)
[2019-08-08] MEDS ORDERED: MIDAZOLAM 2 MG/2 ML INJ ONE (10:38)
[2019-08-08] MEDS ORDERED: FENTANYL CITRATE INJ/PF 100 MCG/2 ML AMPUL ONE (10:38)
[2019-08-08] MEDS ORDERED: LIDOCAINE 0.5% INJ-PF (5 MG/ML) 50 ML SDV ONE (10:38)
[2019-08-08] MEDS ORDERED: CEFAZOLIN INJ 1 GM VIAL ONE (11:34)
--- NOTE | 2019-08-08 12:11 | Operative Report ---
Operative Report DATE OF SURGERY: 08/08/19 PREOPERATIVE DIAGNOSIS: 1. Left lower extremity deep venous thrombosis. 2. P recipitous drop in hemoglobin. 3. Multiple comorbidities POSTOPERATIVE DIAGNOSIS: 1. Left lower extremity deep venous thrombosis. 2. Precipitous drop in hemoglobin. 3. Multiple comorbidities OPERATION: 1. Ultrasound-guided access into the right femoral vein. 2. Insertion of inferior vena cava filter under fluoroscopy guidance. . 3. Ang iogram and interpretation. SURGEON: TREVOR DAMON COMPUTATOR: None. ANESTHESIA: Moderate Sedation TISSUE REMOVED OR ALTERED: Not applicable. COMPLICATIONS: None. ESTIMATED BLOOD LOSS: 2 mL. INTRAOPERATIVE FINDINGS: Of satisfactory and safe access in the right femoral vein under ultrasound guidance. Overall fairly low lying renal vein. On the right centimeters lower than the left. On the left side seen as a blush of blood flow into the vena cava. The filter was placed with the top went about L2 which corresponds to us about a centimeter below the right renal vein. Post insertion angiogram demonstrated the filter patency and position. PROCEDURE: This patient was readmitted with much diminished hemoglobin and hematocrit. She has been on anticoagulant for known left femoral deep venous thrombosis. During this admission the presence of the thrombosis in the left femoral was confirmed with ultrasound. The dilemma therefore is how to protect this patient from pulmonary embolism when anticoagulation is contraindicated. A reasonable solution seems to be insertion of an inferior vena cava filter. The objective is to protect the patient from any large thrombus through the vena cava. The above was discussed and gone over with the patient and her family daughter Swati and . Their questions and concerns addressed and overall they believe is the best decision given the circumstances. This patient although advancing years and frail is really quite mentally vigorous and hopefully has several years to live. She is realistic however and has requested a DO NOT RES USCITATE status which will be rescinded for the duration of the procedure. After obtaining informed consent, the patient was taken to the Senior Quality Control Inspector and positioned supine. The right groin and femoral areas were prepared with chlorhexidine and draped out with sterile linen. After the " universal timeout", in which it was verified that the patient continued to receive antibiotic, the procedure commenced. A steriley sheathed ultrasound probe was used to evaluate the right femoral vein. Local anesthesia was infiltrated adjacent to the probe. Access into the right femoral vein was obtained using a micropuncture needle, followed by micropuncture wire and then a micropuncture catheter. Rr. This was followed by introduction of a 0.035 guidewire the tip of which was placed up into the inferior vena cava . The inferior vena cava filter introducer was now placed over the 0.035 Glidewire. The Glidewire was removed and an inferior vena cava angiogram obtained. A satisfactory position for the filter was ascertained and temporarily marked on the video screen. An appropriate angiogram still was placed on the adjacent screen. A Trapese filter was now inserted into the introducer and positioned with the push an so that it was just in the sheath. Gentle manipulation optimally positioned the filter which is now deployed by removing the introducer sheath over the push an. The push an was removed and the inferior vena cava angiogram done demonstrates patency of the filter in appropriate position. The introducer was removed. Pressure was placed on the entry point for several minutes before applying a band aid. Time: 0.7 minutes. Exposure: 13.73 Kalina castillo. Contrast : 5 Mls. Of Isovue-300, low osmolality. Copies of the dictated operative report for Dr. Trevor Oneill MD.
[2019-08-08] MEDS ORDERED: ONDANSETRON HCL INJ/PF 4 MG/2 ML SDV IV PRN (13:00)
--- NOTE | 2019-08-08 13:51 | RADIOLOGY REPORT (SQ) ---
EXAM DESCRIPTION: IVC FILTER PLACEMENT COMPLETED DATE/TIME: 08/08/2019 12:03 pm REASON FOR STUDY: HX OF DVT D64.9 ANEMIA, UNSPECIFIED COMPARISON: None. FLUOROSCOPY TIME: 0.7 minutes. 20 images saved to PACS. TECHNIQUE: Intra-operative images acquired during surgical procedure to evaluate progress. NUMBER OF IMAGES: 20 images. LIMITATIONS: None. FINDINGS: Images of the abdomen acquired during filter placement. IMPRESSION: IMAGE(S) OBTAINED DURING PROCEDURE. COMMENT: Quality ID [id number]: Final reports for procedures using fluoroscopy that document radiation exp osure indices, or exposure time and number of fluorographic images (if radiation exposure indices are not available) Please consult full operative report of the attending physician for description of the procedure. TECHNICAL DOCUMENTATION: JOB ID: [id number] [email or web address] All Rights Reserved Reading location - IP/workstation name: [email or web address]
--- NOTE | 2019-08-08 16:05 | Progress Note ---
Provider Note Provider Note: Post cath groin assessment Patient assessed 4 hours following catheterization of right lower extremity. She is comfortable at rest. Denies any pain in groin lower extremities. 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 Feels well has no complaints. Vital signs assessed and within normal limits. Tegaderm and gauze removed for assessment. Minimal oozing from right groin without active bleeding. No hematoma palpation. No bruit on auscultation. Normal pulses palpated. Right lower extremity DP and PT pulses palpable. No skin discoloration right foot. A/P Normal groin check post catheterization.
[2019-08-08 16:21] LABS: HEMATOCRIT 27.7 % (36.0-47.0); HEMOGLOBIN 9.5 g/dL (12.0-15.5); MEAN CORPUSCULAR HEMOGLOBIN 30.8 pg (27.0-33.4); MEAN CORPUSCULAR HGB CONC 34.4 g/dL (32.0-36.0); MEAN CORPUSCULAR VOLUME 89 fl (80-97); PLATELET COUNT 210 10^3/uL (150-450); RED CELL DISTRIBUTION WIDTH 18.7 % (11.5-14.0); WHITE BLOOD COUNT 3.8 10^3/uL (4.0-10.5)
[2019-08-08 17:54] VITALS: BP 127/56
--- NOTE | 2019-08-08 18:32 | PDOC DISCHARGE SUMMARY ---
Impression - Admit/DC Date/PCP Admission Date/Primary Care Provider: 08/07/19 14:24 ZARA NOBLE MD Discharge Date: 08/08/19 - Discharge Diagnosis (1) Anemia associated with acute blood loss Is this a current diagnosis for this admission?: Yes (2) Left leg DVT Is this a current diagnosis for this admission?: Yes (3) GERD (gastroesophageal reflux disease) Is this a current diagnosis for this admission?: Yes (4) Hemorrhage secondary to anti-coagulation Is this a current diagnosis for this admission?: Yes - Assessment Summary: Patient presented with fatigue, mild dyspnea. Vital signs were stable. Hemoglobin was noted to be 5.4 which was a steep drop from recent discharge last month. Of note patient has still been taking the Xarelto which was restarted upon discharge on prior visit. Patient was subsequently admitted for sy mptomatic anemia. She was transfused 2 units of blood with improvement of her symptoms and improvement of her hemoglobin to 8.8. Hemoglobin remained stable and the subsequent day was 9.5. Given the patient has had hemoglobin levels dropped to 5s twice recently while on anticoagulation, patient was deemed to be a very poor anticoagulation candidate and anticoagulation at this point is contraindicated. Despite patient's left lower extremity DVT, patient has been taken off Xarelto. Reevaluation of a left lower extremity revealed improvement in DVT which is noted to be chronic. I discussed the case with vascular surgery Dr. Emily Oneill and we proceeded with placement of IVC filter which was done today without any complications. Post cath check was done which showed no complications groin check was normal. Repeat CBC following the procedure was 9.5. Patient's home health will be resumed. Patient is being discharged in stable conditions with appropriate follow-up appointments. I have called patient's buhr dresser and informed them that patient will need a CBC on the follow-up visit later this month. If patient continues to have significant drop in hemoglobin despite discontinuation of Xarelto at that point reattempt at colonoscopy or capsule endoscopy may be required. As of now, patient is stable and is safe for discharge home. - Additional Information Resuscitation Status: Do Not Resuscitate Discharge Diet: Regular Discharge Activity: Activity As Tolerated Referrals: SEAN GARAY NP [NURSE PRACTITIONER] - 08/21/19 1:00 pm ADA LIVINGSTON MD [ACTIVE STAFF] - ZARA NOBLE MD [Primary Care Provider] - 08/13/19 9:45 am Prescriptions: Tramadol HCl [Ultram 50 mg Tablet] 50 mg PO Q12HP PRN #14 tablet PRN Reason: For Breakthrough Pain Home Medications: Pantoprazole Sodium [Protonix [address] Tablet] 40 mg PO DAILY 06/01/19 Ferrous Sulfate [Slow Fe] 142 mg PO BID 06/04/19 Tamsulosin HCl [Flomax 0.4 mg Cap.sr] 0.4 mg PO DAILY 06/04/19 Potassium Chloride [Klor-Con 10 Meq Tablet ER] 10 meq PO DAILY 08/07/19 Acetaminophen [Tylenol 325 mg Tablet] 650 mg PO Q4HP PRN tablet 08/08/19 Tramadol HCl [Ultram 50 mg Tablet] 50 mg PO Q12HP PRN #14 tablet 08/08/19 History of Present Illiness History of Present Illness: RAQUEL BARRIOS is a 83 year old female with a history of iron deficiency anemia, recently diagnosed left leg DVT on Xarelto who presented to the hospital with complaints of weakness and fatigue. Also endorses some shortness of breath. Symptoms started in the past few days. Patient also continues to have swelling and tenderness in her left leg from a recently diagnosed DVT. Patient acknowledges that she has been taking her Xarelto as prescribed. Patient denies any evidence of bleeding including denial of hematochezia, melena, vaginal bleeding or any recent injuries leading to significant blood loss. Patient does follow a buhr dresser and [place]. Patient has been taking her iron pills and states that her stool has been dark brown for the past several years since she started taking iron pills but denies any black tarry stools. Physical Exam Vital Signs: Temp Pulse Resp BP Pulse Ox 98.2 F 74 16 127/56 H 100 08/08/19 17:35 08/08/19 17:35 08/08/19 17:35 08/08/19 17:35 08/08/19 17:35 Intake & Output 08/07/19 08/08/19 08/09/19 06:59 06:59 06:59 Intake Total 950 200 Output Total 1450 Balance 950 -1250 Weight 45.2 kg General appearance: PRESENT: no acute distress, cooperative Neck exam: ABSENT: JVD Respiratory exam: PRESENT: clear to auscultation therese, unlabored. ABSENT: tachypnea, wheezes Cardiovascular exam: PRESENT: RRR, +S1, +S2. ABSENT: tachycardia Extremities exam: PRESENT: calf tenderness Neurological exam: PRESENT: alert, awake, oriented to person, oriented to place, oriented to time Results Laboratory Results: WBC 3.8 10^3/uL (4.0-10.5) L 08/08/19 16:01 RBC 3.10 10^6/uL (3.72-5.28) L 08/08/19 16:01 Hgb 9.5 g/dL (12.0-15.5) L 08/08/19 16:01 Hct 27.7 % (36.0-47.0) L 08/08/19 16:01 MCV 89 fl (80-97) 08/08/19 16:01 MCH 30.8 pg (27.0-33.4) 08/08/19 16:01 MCHC 34.4 g/dL (32.0-36.0) 08/08/19 16:01 RDW 18.7 % (11.5-14.0) H 08/08/19 16:01 Plt Count 210 10^3/uL (150-450) 08/08/19 16:01 Lymph % (Auto) 18.1 % (13-45) 08/07/19 11:30 Steele % (Auto) 7.7 % (3-13) 08/07/19 11:30 Eos % (Auto) 3.5 % (0-6) 08/07/19 11:30 Baso % (Auto) 2.3 % (0-2) H 08/07/19 11:30 Reticulocyte # 0.148 10^6/uL (0.028-0.122) H 08/08/19 04:06 Absolute Neuts (auto) 2.6 10^3/uL (1.7-8.2) 08/07/19 11:30 Absolute Lymphs (auto) 0.7 10^3/uL (0.5-4.7) 08/07/19 11:30 Absolute Monos (auto) 0.3 10^3/uL (0.1-1.4) 08/07/19 11:30 Absolute Eos (auto) 0.1 10^3/uL (0.0-0.6) 08/07/19 11:30 Absolute Basos (auto) 0.1 10^3/uL (0.0-0.2) 08/07/19 11:30 Seg Neutrophils % 68.4 % (42-78) 08/07/19 11:30 Retic Count (auto) 5.15 % (0.66-2.85) H 08/08/19 04:06 PT 23.1 SEC (11.4-15.4) H 08/07/19 11:30 INR 2.02 08/07/19 11:30 APTT 33.8 SEC (23.5-35.8) 08/07/19 11:30 Sodium 138.9 mmol/L (137-145) 08/08/19 04:06 Potassium 3.9 mmol/L (3.6-5.0) 08/08/19 04:06 Chloride 111 mmol/L (98-107) H 08/08/19 04:06 Carbon Dioxide 22 mmol/L (22-30) 08/08/19 04:06 Anion Gap 6 (5-19) 08/08/19 04:06 BUN 25 mg/dL (7-20) H 08/08/19 04:06 Creatinine 0.81 mg/dL (0.52-1.25) 08/08/19 04:06 Est GFR ( Amer) > 60 (>60) 08/08/19 04:06 Est GFR (MDRD) Non-Af > 60 (>60) 08/08/19 04:06 Glucose 80 mg/dL (75-110) 08/08/19 04:06 Calcium 9.0 mg/dL (8.4-10.2) 08/08/19 04:06 Total Bilirubin 0.2 mg/dL (0.2-1.3) 08/07/19 11:30 Direct Bilirubin 0.2 mg/dL (0.0-0.4) 08/07/19 11:30 Neonat Total Bilirubin Not Reportable 08/07/19 11:30 Neonat Direct Bilirubin Not Reportable 08/07/19 11:30 Neonat Indirect Bili Not Reportable 08/07/19 11:30 AST 29 U/L (14-36) 08/07/19 11:30 ALT 10 U/L (<35) 08/07/19 11:30 Alkaline Phosphatase 38 U/L (38-126) 08/07/19 11:30 Total Protein 5.9 g/dL (6.3-8.2) L 08/07/19 11:30 Albumin 3.1 g/dL (3.5-5.0) L 08/07/19 11:30 Blood Type A POSITIVE 08/07/19 12:45 Antibody Screen NEGATIVE 08/07/19 12:45 Crossmatch See Detail 08/07/19 12:45 Impressions: Venous Doppler Study 08/07/19 11:22 IMPRESSION: Clonidine nonocclusive DVT in the superficial femoral vein. No acute finding. Chest X-Ray 08/07/19 11:24 IMPRESSION: Chronic lung changes with no acute cardiopulmonary finding. Head CT 08/07/19 11:24 IMPRESSION: No acute intracranial changes EVIDENCE OF ACUTE STROKE: NO. IVC Filter Placement 08/08/19 00:00 IMPRESSION: IMAGE(S) OBTAINED DURING PROCEDURE. Plan Time Spent: Greater than 30 Minutes Stroke Is this a Stroke Patient?: No Acute Heart Failure - Is this a Heart Failure Patient?: No
== END 2019-08-08 18:45 | disposition home health service (06) ==
LOC: ER 11:08 → INTOOBSV 14:24 → EH 14:24 → 4W 15:43
PROVIDERS: ADMIT Internal Medicine; ATTEND Internal Medicine
DX: D62 Acute posthemorrhagic anemia (principal); I82.512 Chronic embolism and thrombosis of left femoral vein; D68.32 Hemorrhagic disorder due to extrinsic circulating anticoagulants; R58 Hemorrhage, not elsewhere classified; T45.515A Adverse effect of anticoagulants, initial encounter; K21.9 Gastro-esophageal reflux disease without esophagitis; K29.70 Gastritis, unspecified, without bleeding; G62.89 Other specified polyneuropathies; M13.862 Other specified arthritis, left knee; M13.861 Other specified arthritis, right knee; Z79.899 Other long term (current) drug therapy; Z85.41 Personal history of malignant neoplasm of cervix uteri; Z85.038 Personal history of other malignant neoplasm of large intestine; Z85.828 Personal history of other malignant neoplasm of skin; Z90.49 Acquired absence of other specified parts of digestive tract; Z98.890 Other specified postprocedural states; Z87.891 Personal history of nicotine dependence; Z66 Do not resuscitate
CPT/HCPCS: 99285; 86900; 86901; 36415 ×2; 36430; 86850; 85025; 85027; 85610; 85730; 85045; 80048; 80053; 86920; 93971; 37191; 76937; 77001; 71045; 70450; 97116; 97163; 97530; 97535; 97166; G0378 ×3; C1752; C1880; Q9967; C1769; P9016; A9270 ×7; J2250; J0690; J3010; J3490 ×2; J7050; J1644